=== PATIENT | male | born 1960 | race Caucasian/White ===

== ENCOUNTER 2016-10-17 18:49 | Emergency (ER) | payer OTHER ==
[2016-10-17 18:56] VITALS: BP 176/92; PULSE 96; RESP 20; TEMP 98
--- NOTE | 2016-10-17 19:05 | ED ---
General Adult HPI - General Chief complaint: Dental/Oral Stated complaint: Tooth pain/infection Time Seen by Provider: 10/17/16 19:00 Source: patient, RN notes reviewed Mode of arrival: ambulatory Limitations: no limitations - History of Present Illness Initial comments: this is a 56-year-old male presents to the emergency department complaining of tooth pain in the premolar on the bottom left. Patient states he was treated by a dentist with some antibodies but he ran out of them a few days ago and now the pain is started to come back. Patient states he wants to be infection free because he is supposed to have most of his teeth pulled so he can get some dentures. Patient also complains of some nausea as well per patient denies any fever or chills patient denies any area of swelling. Patient denies any swelling outside of his face. Patient denies any difficulty breathing or shortness of breath. Patient denies any other symptoms at this time. - Related Data Home Medications Medication Instructions Recorded Confirmed Multivitamin [Men's Multi-Vitamin] 1 tab PO DAILY 10/30/15 02/02/16 Albuterol Inhaler [Ventolin Hfa 1 - 2 puff INHALATION RT-Q6H PRN 02/02/16 Inhaler] Budesonide-Formot 160-4.5 Mcg 2 puff INHALATION RT-BID 02/02/16 02/02/16 [Symbicort 160-4.5 Mcg Inhaler] Tiotropium 18 Mcg/Puff [Spiriva] 1 cap INHALATION RT-DAILY 02/02/16 02/02/16 Previous Rx's Medication Instructions Recorded Ferrous Sulfate [Feosol] 325 mg PO DAILY #30 tab 02/02/16 HYDROcodone/APAP 5-325MG [[place] 1 tab PO Q6HR PRN #20 tab 02/02/16 5-325] Pantoprazole Sodium [Protonix] 40 mg PO AC-BRKFST #30 tablet. 02/02/16 Clindamycin HCl 300 mg PO Q6H 10 Days 10/17/16 Prochlorperazine [Compazine] 10 mg PO Q8H #10 tab 10/17/16 Allergies Allergy/AdvReac Type Severity Reaction Status Date / Time Penicillins Allergy Unknown Verified 10/17/16 18:56 Childhood codeine AdvReac Nausea & Verified 10/17/16 18:56 Vomiting Review of Systems ROS Statement: Those systems with pertinent positive or pertinent negative responses have been documented in the HPI. ROS Other: All systems not noted in ROS Statement are negative. Past Medical History Past Medical History: COPD, GI Bleed, Seizure Disorder Additional Past Medical History / Comment(s): migraines, last seizure - 15 yrs ago,anemia with bleeding gastric ulcer in 10/2015 and had a blood transfusion History of Any Multi-Drug Resistant Organisms: None Reported Past Surgical History: Cholecystectomy Additional Past Surgical History / Comment(s): amputation right thumb, skin graft right hand, left testicle removed. Past Anesthesia/Blood Transfusion Reactions: No Reported Reaction Additional Past Anesthesia/Blood Transfusion Reaction / Comment(s): pt has recieved blood transfusion - no reaction Past Psychological History: No Psychological Hx Reported Smoking Status: Current every day smoker Past Alcohol Use History: None Reported Past Drug Use History: None Reported - Past Family History Mother History Unknown: Yes Family Medical History: Myocardial Infarction ([place]) Father History Unknown: Yes Family Medical History: Myocardial Infarction ([place]) General Exam - General Exam Comments Initial Comments: GENERAL Patient is well-developed and well-nourished. Patient is in mild distress. EYES Patient's pupils are equal and round. Extraocular motion is intact SKIN Unremarkable NEURO The patient is alert and oriented 3 PYSCH Patient has normal interpersonal interactions. Mouth Patient has severe dental caries in the premolar on the bottom left is very sensitive to touch but there is no swelling or fluctuant area that an I&D to be performed on. Limitations: no limitations Course Vital Signs 10/17/16 18:54 Temperature 98.0 F Pulse Rate 96 Respiratory 20 Rate Blood Pressure 176/92 O2 Sat by Pulse 99 Oximetry Disposition Clinical Impression: Dental infection Disposition: HOME SELF-CARE Condition: Good Instructions: Dental Caries (ED), Toothache (ED) Prescriptions: Clindamycin HCl 300 mg PO Q6H 10 Days Prochlorperazine [Compazine] 10 mg PO Q8H #10 tab Time of Disposition: 19:03
== END 2016-10-17 19:10 | disposition home or self-care (01) ==
LOC: EC 18:49
DX: K04.7 Periapical abscess without sinus (principal); K02.9 Dental caries, unspecified; J44.9 Chronic obstructive pulmonary disease, unspecified; F17.200 Nicotine dependence, unspecified, uncomplicated; Z79.51 Long term (current) use of inhaled steroids; Z79.899 Other long term (current) drug therapy; Z88.0 Allergy status to penicillin; Z87.11 Personal history of peptic ulcer disease
CPT/HCPCS: 99282

== ENCOUNTER 2016-12-13 00:07 | Emergency (ER) | payer OTHER ==
[2016-12-13] MEDS ORDERED: KETOROLAC 60 MG/2 ML VIAL IM STA (01:22)
[2016-12-13] MEDS ORDERED: DIAZEPAM 5 MG TAB PO STA (01:22)
--- NOTE | 2016-12-13 01:25 | ED ---
General Adult HPI - General Chief complaint: Headache Stated complaint: Neck Pain Time Seen by Provider: 12/13/16 01:15 Source: patient, RN notes reviewed Mode of arrival: ambulatory Limitations: no limitations - History of Present Illness Initial comments: Patient 56-year-old male who presents emergency room today with a chief complaint of increased neck pain over the last week. He does admit to feeling a "knot" in the middle of his neck and upper back. States worse certain movements of if he rotates his head to the left of the right. Patient does admit that he's been babysitting his granddaughter who is 3 months old. He states he noticed that when he went to pick her up a week ago to sit on his lap. Patient denies any other injury or trauma. He states he's been trying ibuprofen and Aleve with little relief of symptoms. He denies any other complaints or symptoms at this time. - Related Data Previous Rx's Medication Instructions Recorded Cyclobenzaprine [Flexeril] 10 mg PO TID #20 tab 12/13/16 Ibuprofen [Motrin] 800 mg PO Q6HR PRN #30 tab 12/13/16 Allergies Allergy/AdvReac Type Severity Reaction Status Date / Time Penicillins Allergy Unknown Verified 12/13/16 00:17 Childhood codeine AdvReac Nausea & Verified 12/13/16 00:17 Vomiting Review of Systems ROS Statement: Those systems with pertinent positive or pertinent negative responses have been documented in the HPI. ROS Other: All systems not noted in ROS Statement are negative. Past Medical History Past Medical History: COPD, GI Bleed, Seizure Disorder Additional Past Medical History / Comment(s): migraines, last seizure - 15 yrs ago,anemia with bleeding gastric ulcer in 10/2015 and had a blood transfusion History of Any Multi-Drug Resistant Organisms: None Reported Past Surgical History: Cholecystectomy Additional Past Surgical History / Comment(s): amputation right thumb, skin graft right hand, left testicle removed. Past Anesthesia/Blood Transfusion Reactions: No Reported Reaction Additional Past Anesthesia/Blood Transfusion Reaction / Comment(s): pt has recieved blood transfusion - no reaction Past Psychological History: No Psychological Hx Reported Smoking Status: Current every day smoker Past Alcohol Use History: None Reported Past Drug Use History: None Reported - Past Family History Mother History Unknown: Yes Family Medical History: Myocardial Infarction ([place]) Father History Unknown: Yes Family Medical History: Myocardial Infarction ([place]) General Exam - General Exam Comments Initial Comments: General: The patient is awake and alert, in no distress, and does not appear acutely ill. Eye: Pupils are equal, round and reactive to light, extra-ocular movements are intact. No nystagmus. There is normal conjunctiva bilaterally. No signs of icterus. Ears, nose, mouth and throat: There are moist mucous membranes and no oral lesions. Neck: The neck is supple, there is no tenderness or JVD. Cardiovascular: There is a regular rate and rhythm. No murmur, rub or gallop is appreciated. Respiratory: Lungs are clear to auscultation, respirations are non-labored, breath sounds are equal. No wheezes, stridor, rales, or rhonchi. Musculoskeletal: Shows good range of motion both the left and right of the cervical spine. Has normal appearance of the cervical spine. Has mild tenderness. Both the left and right side of the paravertebral cervical spine. Mild tenderness to the upper thoracic. No step-offs forms appreciated. Strength 5/5. Sensation intact. Pulses equal bilaterally 2+. Neurological: A&O x 3. CN II-XII intact, There are no obvious motor or sensory deficits. Coordination appears grossly intact. Speech is normal. Skin: Skin is warm and dry and no rashes or lesions are noted. Psychiatric: Cooperative, appropriate mood & affect, normal judgment. Limitations: no limitations Course Vital Signs 12/13/16 12/13/16 00:15 02:15 Temperature 98.3 F 98.4 F Pulse Rate 85 Respiratory 20 16 Rate Blood Pressure 162/101 146/95 O2 Sat by Pulse 96 Oximetry Medical Decision Making - Medical Decision Making Patient reexamined at this time shows no signs of distress. He states he is feeling better after medications given here in the emergency room. Patient was given Toradol along with Valium by mouth 10 mg. Patient will be discharged home continuing muscle relaxer and anti-inflammatories advised to be aware that muscle extremely drowsy. Advised return if any symptoms increase worsen. Advised follow-up the family doctor over the next 2 days. Disposition Clinical Impression: Muscle strain Disposition: HOME SELF-CARE Condition: Good Instructions: Muscle Strain (ED) Additional Instructions: Please use medication as discussed. Please follow-up with family doctor in the next 2 days of symptoms have not improved. Please return to emergency room if the symptoms increase or worsen or for any other concerns. Prescriptions: Cyclobenzaprine [Flexeril] 10 mg PO TID #20 tab Ibuprofen [Motrin] 800 mg PO Q6HR PRN #30 tab PRN Reason: Pain Referrals: None,Stated [Primary Care Provider] - 1-2 days Mikey Briceño MD [STAFF PHYSICIAN] - 1-2 days Time of Disposition: 02:18
[2016-12-13 02:16] VITALS: BP 146/95; PULSE 85; RESP 16; TEMP 98.4
== END 2016-12-13 02:29 | disposition home or self-care (01) ==
LOC: EC 00:07
DX: S16.1XXA Strain of muscle, fascia and tendon at neck level, initial encounter (principal); R51 Headache; Z88.0 Allergy status to penicillin; Z88.5 Allergy status to narcotic agent; X58.XXXA Exposure to other specified factors, initial encounter; Y93.89 Activity, other specified
CPT/HCPCS: 99283; 96372; J1885

== ENCOUNTER 2016-12-27 22:55 | Observation (INO) | payer OTHER ==
[2016-12-28 00:30] LABS: Basophils # (A) 0.1 k/uL (0-0.2); Basophils % (A) 1 %; CH 27.6; CHCM 32.7; Eosinophils # (A) 0.3 k/uL (0-0.7); Eosinophils % (A) 3 %; HCT 38.9 % (39.0-53.0); HDW 3.11; HGB 12.9 gm/dL (13.0-17.5); Luc # (Auto) 0.12; Luc % (Auto) 1; Lymphocytes # (A) 1.4 k/uL (1.0-4.8); Lymphocytes % (A) 15 %; MCH 28.2 pg (25.0-35.0); MCHC 33.3 g/dL (31.0-37.0); MCV 84.9 fL (80.0-100.0); Mean Platelet Volume 6.6; Monocytes # (A) 0.5 k/uL (0-1.0); Monocytes % (A) 6 %; Neutrophils % (A) 74 %; RBC 4.59 m/uL (4.30-5.90); RDW 14.7 % (11.5-15.5); WBC 9.4 k/uL (3.8-10.6)
[2016-12-28 00:39] LABS: INR 1.1 (<1.1); Partial Thromboplastin Time 26.7 sec (22.0-30.0); Prothrombin Time 11.3 sec (9.0-12.0)
[2016-12-28 00:45] LABS: ALT 27 U/L (21-72); AST 22 U/L (17-59); Alkaline Phosphatase 67 U/L (38-126); Anion Gap 10 mmol/L; Blood Urea Nitrogen 14 mg/dL (9-20); Calcium 9.9 mg/dL (8.4-10.2); Carbon Dioxide 30 mmol/L (22-30); Chloride 102 mmol/L (98-107); Glucose 112 mg/dL (74-99); Non-African American GFR(MDRD) >60 (>60 ml/min/1.73 sqM); Potassium 3.5 mmol/L (3.5-5.1); Sodium 142 mmol/L (137-145); Total Bilirubin 0.5 mg/dL (0.2-1.3); Total Protein 6.8 g/dL (6.3-8.2)
[2016-12-28 00:55] LABS: Creatine Kinase 142 U/L (55-170)
--- NOTE | 2016-12-28 00:55 | XR ---
EXAM: XR Chest, 1 View CLINICAL HISTORY: Reason: pain TECHNIQUE: Frontal view of the chest. COMPARISON: 02/02/2016 FINDINGS: Lungs: Stable bilateral pulmonary hyperinflation. No focal consolidation. Pleural space: Unremarkable. No pneumothorax. Heart: Stable cardiomediastinal silhouette. Mediastinum: See above. Bones/joints: No acute osseous abnormality. IMPRESSION: No acute cardiopulmonary process.
--- NOTE | 2016-12-28 01:01 | ED ---
GI Bleed HPI - General Chief complaint: GI Bleed Stated complaint: Vomiting Time Seen by Provider: 12/28/16 00:04 Source: patient Mode of arrival: ambulatory Limitations: no limitations - History of Present Illness Initial comments: this patient is a 56-year-old man with history of "esophageal ulcers" who presents to be evaluated after he had been vomiting some bloody emesis. Patient states that about 10 this morning he had vomited and there was a small amount of some bright red blood. He has had a number of additional episodes a low the blood had darkened over the course of the afternoon. He thinks that he had about 6 episodes. He comes in to be evaluated because this evening he developed some right flank pain and he states that the last time he had this it was due to an ulcer. The patient has not noted any change in bowel movements, including no dark tarry or bloody bowel movements. He is not having any symptoms of anemia, no lightheadedness, palpitations or syncope, no chest pain, diaphoresis, or dyspnea. The patient denies any alcohol use. MD complaint: blood streaked emesis Onset/Timin -: hour(s) Quality: sharp Consistency: constant Improves with: none Worsens with: none Context: history of GI bleed Associated Symptoms: abdominal pain Treatments Prior to Arrival: none - Related Data Home Medications Medication Instructions Recorded Confirmed No Known Home Medications [No 12/27/16 12/27/16 Known Home Medications] Allergies Allergy/AdvReac Type Severity Reaction Status Date / Time Penicillins Allergy Unknown Verified 12/27/16 23:34 Childhood codeine AdvReac Nausea & Verified 12/27/16 23:34 Vomiting Review of Systems ROS Statement: Those systems with pertinent positive or pertinent negative responses have been documented in the HPI. ROS Other: All systems not noted in ROS Statement are negative. Constitutional: Denies: fever, chills Respiratory: Denies: cough, dyspnea Cardiovascular: Denies: chest pain, palpitations Gastrointestinal: Reports: as per HPI, abdominal pain, nausea, vomiting, hematemesis. Denies: diarrhea, constipation, melena, hematochezia Genitourinary: Denies: dysuria, hematuria Musculoskeletal: Denies: back pain Skin: Denies: rash Neurological: Denies: headache, weakness, numbness Past Medical History Past Medical History: COPD, GI Bleed, Seizure Disorder Additional Past Medical History / Comment(s): migraines, last seizure - 15 yrs ago,anemia with bleeding gastric ulcer in 10/2015 and had a blood transfusion History of Any Multi-Drug Resistant Organisms: None Reported Past Surgical History: Cholecystectomy Additional Past Surgical History / Comment(s): amputation right thumb, skin graft right hand, left testicle removed. Past Anesthesia/Blood Transfusion Reactions: No Reported Reaction Additional Past Anesthesia/Blood Transfusion Reaction / Comment(s): pt has recieved blood transfusion - no reaction Past Psychological History: No Psychological Hx Reported Smoking Status: Current every day smoker Past Alcohol Use History: None Reported Past Drug Use History: None Reported - Past Family History Mother History Unknown: Yes Family Medical History: Myocardial Infarction ([place]) Father History Unknown: Yes Family Medical History: Myocardial Infarction ([place]) General Exam Limitations: no limitations General appearance: alert, in no apparent distress Head exam: Present: atraumatic, normocephalic Eye exam: Present: normal appearance. Absent: scleral icterus, conjunctival injection Neck exam: Present: normal inspection, full ROM Respiratory exam: Present: normal lung sounds bilaterally. Absent: respiratory distress, wheezes, rales, rhonchi, stridor Cardiovascular Exam: Present: regular rate, normal rhythm, normal heart sounds. Absent: systolic murmur, diastolic murmur, rubs, gallop GI/Abdominal exam: Present: soft, normal bowel sounds. Absent: distended, tenderness, guarding, rebound, rigid, mass, bruit, pulsatile mass, hernia Extremities exam: Present: normal inspection, normal capillary refill. Absent: pedal edema, calf tenderness Back exam: Present: normal inspection. Absent: CVA tenderness (R), CVA tenderness (L) Neurological exam: Present: alert Skin exam: Present: warm, dry, intact, normal color. Absent: rash Course Vital Signs 12/27/16 12/28/16 23:30 02:29 Temperature 97.8 F Pulse Rate 89 74 Respiratory 18 16 Rate Blood Pressure 155/86 161/89 O2 Sat by Pulse 100 98 Oximetry Medical Decision Making - Lab Data Result diagrams: 12/28/16 00:20 12/28/16 00:20 Lab Results 12/28/16 12/28/16 12/28/16 Range/Units 00:20 00:20 00:20 WBC 9.4 (3.8-10.6) k/uL RBC 4.59 (4.30-5.90) m/uL Hgb 12.9 L (13.0-17.5) gm/dL Hct 38.9 L (39.0-53.0) % MCV 84.9 (80.0-100.0) fL MCH 28.2 (25.0-35.0) pg MCHC 33.3 (31.0-37.0) g/dL RDW 14.7 (11.5-15.5) % Plt Count 314 (150-450) k/uL Neutrophils % 74 % Lymphocytes % 15 % Monocytes % 6 % Eosinophils % 3 % Basophils % 1 % Neutrophils # 7.0 (1.3-7.7) k/uL Lymphocytes # 1.4 (1.0-4.8) k/uL Monocytes # 0.5 (0-1.0) k/uL Eosinophils # 0.3 (0-0.7) k/uL Basophils # 0.1 (0-0.2) k/uL PT (9.0-12.0) sec INR (<1.1) APTT (22.0-30.0) sec Sodium 142 (137-145) mmol/L Potassium 3.5 (3.5-5.1) mmol/L Chloride 102 (98-107) mmol/L Carbon Dioxide 30 (22-30) mmol/L Anion Gap 10 mmol/L BUN 14 (9-20) mg/dL Creatinine 0.90 (0.66-1.25) mg/dL Est GFR (MDRD) Af Amer >60 (>60 ml/min/1.73 sqM) Est GFR (MDRD) Non-Af >60 (>60 ml/min/1.73 sqM) Glucose 112 H (74-99) mg/dL Plasma Lactic Acid Shad (0.7-2.0) mmol/L Calcium 9.9 (8.4-10.2) mg/dL Total Bilirubin 0.5 (0.2-1.3) mg/dL AST 22 (17-59) U/L ALT 27 (21-72) U/L Alkaline Phosphatase 67 (38-126) U/L Total Creatine Kinase 142 (55-170) U/L CK-MB (CK-2) 0.6 (0.0-2.4) ng/mL CK-MB (CK-2) Rel Index 0.4 Troponin I <0.012 (0.000-0.034) ng/mL Total Protein 6.8 (6.3-8.2) g/dL Albumin 4.0 (3.5-5.0) g/dL 12/28/16 12/28/16 Range/Units 00:20 00:20 WBC (3.8-10.6) k/uL RBC (4.30-5.90) m/uL Hgb (13.0-17.5) gm/dL Hct (39.0-53.0) % MCV (80.0-100.0) fL MCH (25.0-35.0) pg MCHC (31.0-37.0) g/dL RDW (11.5-15.5) % Plt Count (150-450) k/uL Neutrophils % % Lymphocytes % % Monocytes % % Eosinophils % % Basophils % % Neutrophils # (1.3-7.7) k/uL Lymphocytes # (1.0-4.8) k/uL Monocytes # (0-1.0) k/uL Eosinophils # (0-0.7) k/uL Basophils # (0-0.2) k/uL PT 11.3 (9.0-12.0) sec INR 1.1 (<1.1) APTT 26.7 (22.0-30.0) sec Sodium (137-145) mmol/L Potassium (3.5-5.1) mmol/L Chloride (98-107) mmol/L Carbon Dioxide (22-30) mmol/L Anion Gap mmol/L BUN (9-20) mg/dL Creatinine (0.66-1.25) mg/dL Est GFR (MDRD) Af Amer (>60 ml/min/1.73 sqM) Est GFR (MDRD) Non-Af (>60 ml/min/1.73 sqM) Glucose (74-99) mg/dL Plasma Lactic Acid Shad 0.9 (0.7-2.0) mmol/L Calcium (8.4-10.2) mg/dL Total Bilirubin (0.2-1.3) mg/dL AST (17-59) U/L ALT (21-72) U/L Alkaline Phosphatase (38-126) U/L Total Creatine Kinase (55-170) U/L CK-MB (CK-2) (0.0-2.4) ng/mL CK-MB (CK-2) Rel Index Troponin I (0.000-0.034) ng/mL Total Protein (6.3-8.2) g/dL Albumin (3.5-5.0) g/dL Disposition Clinical Impression: GI bleed Disposition: ADMITTED IP TO THIS [facility] Condition: Good Referrals: None,Stated [Primary Care Provider] - 1-2 days
[2016-12-28 01:08] LABS: Creatine Kinase MB 0.6 ng/mL (0.0-2.4); Troponin I <0.012 ng/mL (0.000-0.034)
[2016-12-28] MEDS ORDERED: NALOXONE 0.4 MG/ML 1 ML VIAL IV PRN (03:34)
[2016-12-28] MEDS ORDERED: DOCUSATE 100 MG CAP PO PRN (03:34)
[2016-12-28] MEDS: MORPHINE SULFATE 4 MG/ML SYRINGE IV PRN ×4 (03:44→14:11)
[2016-12-28 05:02] VITALS: RESP 16
[2016-12-28] MEDS: SODIUM CHLORIDE 0.9% 1,000 ML IV SCH ×2 (05:44→18:16)
--- NOTE | 2016-12-28 07:53 | P.CONS ---
History of Present Illness - Reason for Consult Consult date: 12/28/16 Hematemesis Requesting physician: Gabriela Snyder - History of Present Illness 56-year-old gentleman with a history of moderate size hiatal hernia, peptic ulcer disease, diverticulosis, cholecystectomy, COPD, seizure disorder, migraines, and nicotine cigarette dependency. Patient presents with acute hematemesis that started yesterday morning with small amount of bright red blood. Additional emesis later in the afternoon more darker in color. He vomited approximately 6 times. Patient underwent oral surgery with total teeth extraction and has been taking Motrin 800 mg twice daily for the last 7-10 days . Denies fever, chills. Reports some mild midepigastric reflux-like discomfort. Denies gross hematochezia or melena. No usage of aspirin. No history of alcohol abuse. Patient underwent EGD colonoscopy October 2015 for profound anemia with findings of moderate size hiatal hernia. Gastritis and duodenitis with 2 benign- appearing gastric body ulcers approximately 2 cm close to the cardia along the lesser curvature not actively bleeding at the time of exam. Sigmoid diverticulosis without strictures polyps colon cancer or bleeding. Admission hemoglobin 12.9. MCV 84. Platelets 314. White count 9.4. INR 1.1. BUN 14. Creatinine 0.9. Review of Systems Constitutional: Denies fever, chills, sweats, weight gain, or loss. HEENT: History of migraines, denies blurred vision or loss, earaches, drainage, tinnitus, oral mucosal lesions, dysphagia, or odynophagia. Cardiac: Negative for chest pain, arrhythmias, or palpitation. Respiratory: COPD. Cigarette nicotine dependency. Negative for shortness of breath, hemoptysis, cough, or sputum production. Gastrointestinal: See HPI for pertinent findings. Genitourinary: History of left orchiectomy. Negative for hematuria, urgency, frequency, polyuria, dysuria, or penile discharge. Musculoskeletal: Negative for muscle aches, swelling, arthritis, and arthralgias. Neurologic: History of seizure disorder. Negative for stroke or TIA. Endocrine: Negative for thyroid problems. Skin: Negative for rash or itching. Psychiatric: Negative history for depression and anxiety All systems: negative (See HPI) Past Medical History Past Medical History: COPD, GI Bleed, Seizure Disorder Additional Past Medical History / Comment(s): migraines, last seizure - 15 yrs ago,anemia with bleeding gastric ulcer in 10/2015 and had a blood transfusion History of Any Multi-Drug Resistant Organisms: None Reported Past Surgical History: Cholecystectomy Additional Past Surgical History / Comment(s): amputation right thumb, skin graft right hand, left testicle removed. Past Anesthesia/Blood Transfusion Reactions: No Reported Reaction Additional Past Anesthesia/Blood Transfusion Reaction / Comm: pt has recieved blood transfusion - no reaction Past Psychological History: No Psychological Hx Reported Smoking Status: Current every day smoker Past Alcohol Use History: None Reported Past Drug Use History: None Reported - Past Family History Mother History Unknown: Yes Family Medical History: Myocardial Infarction ([place]) Father History Unknown: Yes Family Medical History: Myocardial Infarction ([place]) Medications and Allergies Home Medications Medication Instructions Recorded Confirmed Type Ibuprofen [Motrin] 600 mg PO Q6H PRN 12/28/16 12/28/16 History Allergies Allergy/AdvReac Type Severity Reaction Status Date / Time Penicillins Allergy Unknown Verified 12/28/16 07:47 Childhood codeine AdvReac Nausea & Verified 12/28/16 07:47 Vomiting Physical Exam Vitals: Vital Signs Temp Pulse Pulse Pulse Resp BP BP 12/28/16 07:00 97.9 F 72 16 123/56 12/28/16 04:47 97.4 F L 73 16 152/90 12/28/16 04:03 98.1 F 75 18 154/84 12/28/16 02:29 74 16 161/89 12/27/16 23:30 97.8 F 89 18 155/86 Pulse Ox 12/28/16 07:00 96 12/28/16 04:47 96 12/28/16 04:03 95 12/28/16 02:29 98 12/27/16 23:30 100 Intake and Output 12/27/16 12/28/16 12/28/16 22:59 06:59 14:59 Intake Total 112.5 Balance 112.5 Intake: Intake, IV Titration 112.5 Amount Sodium Chloride 0.9% 1, 112.5 000 ml @ 75 mls/hr IV . [id number] [facility] Rx#:[id number] Other: Voiding Method Toilet # Voids 1 Weight 80.739 kg General appearance: The patient is alert, oriented, in no acute distress. HET: Head is normocephalic and atraumatic. Pupils are equal and reactive. Oropharynx is clear without lesions. Neck: Supple without lymphadenopathy. Trachea midline. Heart: S1 S2. Regular rate and rhythm. Lungs: No crackles or wheezes are heard. Abdomen: Soft, nontender, nondistended with bowel sounds. No peritoneal signs. No palpable organomegaly or masses. Extremities: Normal skin color and turgor. No cyanosis, rash, ulceration, clubbing, or edema. Radial and pedal pulses are 2/4 bilaterally. Neurological: No focal deficits. Strength and sensation are grossly intact. Results CBC & Chem 7: 12/28/16 00:20 12/28/16 00:20 Labs: Abnormal Lab Results - Last 24 Hours (Table) 12/28/16 12/28/16 Range/Units 00: 00:20 Hgb 12.9 L (13.0-17.5) gm/dL Hct 38.9 L (39.0-53.0) % Glucose 112 H (74-99) mg/dL Assessment and Plan (1) Hematemesis Narrative/Plan: Possible NSAID-induced peptic ulcer disease. EGD October 2015 2 nonbleeding ulcers approximately 2 cm gastric body along the lesser curvature near the cardia; H. pylori negative. Status: Acute (2) History of peptic ulcer disease Status: Acute (3) GI bleed Status: Acute Plan: 1. EGD evaluation. 2. IV Protonix 40 mg twice daily. 3. No aspirin or NSAIDs. 4. Monitor CBC closely. The habitat management coordinator has discussed the risks, benefits and alternative therapies for the above-mentioned procedure and for both sedation/analgesia as well as necessary blood product administration, if indicated, as they pertain to this patient. The patient has indicated understanding and acceptance of the risks and procedures discussed. Thank you for this kind referral and the opportunity to participate in the care of your patient. This consultation was discussed with Dr. Schmitz. The impression and plan of care have been directed as dictated.
[2016-12-28] MEDS ORDERED: PANTOPRAZOLE 40 MG/10 ML VIAL IV SCH ×2 (09:00)
[2016-12-28] MEDS ORDERED: ACETAMINOPHEN TAB 325 MG TAB PO PRN (12:47)
--- NOTE | 2016-12-28 13:24 | HP ---
DATE OF ADMISSION: HISTORY AND PHYSICAL AND DISCHARGE SUMMARY The patient is a 56-year-old with history of hiatal hernia and peptic ulcer disease and upper GI bleeds in the past. Came in with complaints of hematemesis and patient's hematemesis improved today. Patient had multiple such episodes yesterday. He vomited about 6 times and a few of those episodes had hematemesis. The patient had a recent tooth extraction after which patient was started on 800 mg twice a day of Motrin and has been using for the last 7 to 10 days. Patient underwent EGD and in the past which showed some hiatal hernia. The patient is undergoing EGD. If patient does not have any actively bleeding ulcer, patient will be started on Prilosec for 14 days to a month, for 2 to 4 weeks and patient will be discharged. Patient will be requested to avoid Motrin. Patient will not need any pain medications. Patient said he will not need any pain medications. REVIEW OF SYSTEMS: CONSTITUTIONAL: No fever, no malaise, no fatigue. HEENT: No recent visual problems or hearing problems. Denied any sore throat. CARDIOVASCULAR: No chest pain, orthopnea, PND, no palpitations, no syncope. PULMONARY: No shortness of breath, no cough, no hemoptysis. GASTROINTESTINAL: As described in HPI. NEUROLOGICAL: No headaches, no weakness, no numbness. HEMATOLOGICAL: Denies any bleeding or petechiae. GENITOURINARY: Denies any burning micturition, frequency, or urgency. MUSCULOSKELETAL/RHEUMATOLOGICAL: Denies any joint pain, swelling, or any muscle pain. ENDOCRINE: Denies any polyuria or polydipsia. The rest of the 14 point review of systems is negative. Past medical history is significant for GI bleed in the past, COPD, seizure disorder, amputation of the right thumb. SOCIAL HISTORY: The patient does smoke a pack per day. Denied any alcohol abuse or any drug abuse. FAMILY HISTORY: Mother had myocardial infarction. Father had myocardial infarction. F HOME MEDICATIONS: Ibuprofen 600 mg p.o. q.6 hourly. ALLERGIES: Allergic to PENICILLIN and CODEINE. PHYSICAL EXAMINATION: Temperature 97.9, pulse of 72, respiratory rate of 16, blood pressure 123/56, saturating at 96% on room air. GENERAL: The patient is alert and oriented x3, not in any acute distress. Well developed, well nourished. HEENT: Pupils are round and equally reacting to light. EOMI. No scleral icterus. No conjunctival pallor. Normocephalic, atraumatic. No pharyngeal erythema. No thyromegaly. CARDIOVASCULAR: S1 and S2 present. No murmurs, rubs, or gallops. PULMONARY: Chest is clear to auscultation, no wheezing or crackles. ABDOMEN: Soft, nontender, nondistended, normoactive bowel sounds. No palpable organomegaly. MUSCULOSKELETAL: No joint swelling or deformity. EXTREMITIES: No cyanosis, clubbing, or pedal edema. NEUROLOGICAL: Gross neurological examination did not reveal any focal deficits. SKIN: No rashes. LABORATORY DATA: CBC, CMP are abnormal for mildly low hemoglobin of 12.9, RDW is only 14.7, which is high normal. Chest x-ray was reviewed. ASSESSMENT AND PLAN: 1. Upper gastrointestinal bleed and hematemesis secondary to gastritis or peptic ulcer disease. Management as mentioned above. After the upper gastrointestinal endoscopy, the patient's diet will be advanced and if he is able to tolerate without nausea or vomiting, patient will be discharged. Patient will follow with gastroenterology as an outpatient and primary care physician as an outpatient. 2. Chronic obstructive pulmonary disease without any acute exacerbation. Patient's further management as an outpatient. 3. History of seizure disorder, not on any antiseizure medications. As mentioned above, further management as an outpatient.
[2016-12-28] MEDS ORDERED: PROPOFOL 10 MG/ML 20 ML VIAL IV ONE (16:21)
[2016-12-28] MEDS ORDERED: IV FLUID CONTINUATION 1,000 ML IV ONE (16:21)
--- NOTE | 2016-12-28 17:00 | P.PCN ---
Date of Procedure: 12/28/16 Preoperative Diagnosis: Postoperative Diagnosis: Procedure(s) Performed: Procedure: Esophagogastroduodenoscopy and biopsy. Preoperative diagnosis: Upper GI bleeding. Postoperative diagnosis: 1. Moderately sized hiatal hernia and gastritis with no active bleeding at the time of this exam. 2. Biopsies obtained from the antrum. Preparation and sedation: Was provided by anesthesia. Brief clinical history: The patient is a 56-year-old gentleman with a history of moderate size hiatal hernia, peptic ulcer disease, diverticulosis, cholecystectomy, COPD, seizure disorder, migraines, and nicotine cigarette dependency. He presented with acute hematemesis that started yesterday morning with small amount of bright red blood. Additional emesis later in the afternoon more darker in color. He vomited approximately 6 times. Patient underwent oral surgery with total teeth extraction and has been taking Motrin 800 mg twice daily for the last 7-10 days. Denies fever, chills. Reports some mild midepigastric reflux-like discomfort. Denies gross hematochezia or melena. No usage of aspirin. No history of alcohol abuse. He underwent EGD and colonoscopy October 2015 for profound anemia with findings of moderate size hiatal hernia. Gastritis and duodenitis with 2 benign-appearing gastric body ulcers approximately 2 cm close to the cardia along the lesser curvature not actively bleeding at the time of exam. Sigmoid diverticulosis without strictures polyps colon cancer or bleeding. Admission hemoglobin 12.9. MCV 84. Platelets 314. Other details as summarized in the history and physical and dictated consultation. Procedure: With the patient on his left lateral decubitus position and after informed consent and adequate sedation, I passed the Olympus-GIF 160 video upper endoscope through the cricopharyngeus down the esophagus. The esophagus appeared healthy with no obvious erosions, ulcers, strictures or Yepez's esophagus. There was no mucosal tears. There was a moderately sized hiatal hernia then the endoscope was passed into the stomach which was insufflated with air and inspected in detail including the retroflex view in the cardia. There was diffuse mottling and erythema and there were multiple linear erosions noted in the proximal stomach at the level of the diaphragmatic impression but there was no active bleeding. Pyloric channel, duodenal bulb, post bulbar area and descending duodenum appeared within normal limits. There was no active bleeding noted on this exam and all secretions were bilious in color. I obtained biopsies from the antrum then the endoscope was withdrawn. The patient tolerated the procedure well. Plan: The patient was reassured. Will await biopsy results. In the meantime he will continue PPI and allow diet as tolerated. Implants: Indications for Procedure: Operative Findings: Description of Procedure:
[2016-12-28 17:05] VITALS: BP 146/88; PULSE 74; TEMP 97.4
== END 2016-12-28 18:41 | disposition home or self-care (01) ==
LOC: EC 22:55 → 3SUR 12-28 03:34
PROVIDERS: ADMIT Internal Medicine; ATTEND Internal Medicine
DX: K29.71 Gastritis, unspecified, with bleeding (principal); K27.9 Peptic ulcer, site unspecified, unspecified as acute or chronic, without hemorrhage or perforation; K44.9 Diaphragmatic hernia without obstruction or gangrene; J44.9 Chronic obstructive pulmonary disease, unspecified; G40.909 Epilepsy, unspecified, not intractable, without status epilepticus; F17.210 Nicotine dependence, cigarettes, uncomplicated; Z88.0 Allergy status to penicillin; Z88.5 Allergy status to narcotic agent; Z90.49 Acquired absence of other specified parts of digestive tract; Z82.49 Family history of ischemic heart disease and other diseases of the circulatory system; K21.9 Gastro-esophageal reflux disease without esophagitis; Z79.899 Other long term (current) drug therapy
CPT/HCPCS: 96376; 96375; 96374; 99285; 36415; 86900; 86901; 88305; 80053; 82550; 82553; 83605; 84484; 85025; 85610; 85730; 86850; 88342; 71010; 43239; G0378; J2270; J2704; C9113

== ENCOUNTER 2017-01-10 19:46 | Observation (INO) | payer OTHER ==
[2017-01-10] MEDS ORDERED: SODIUM CHLORIDE 0.9% 500 ML IV STA (20:56)
--- NOTE | 2017-01-10 21:02 | ED ---
GI Bleed HPI - General Chief complaint: GI Bleed Stated complaint: Rectual bleeding Time Seen by Provider: 01/10/17 20:51 Source: patient, RN notes reviewed Mode of arrival: ambulatory Limitations: no limitations - History of Present Illness Initial comments: 48-year-old male presents to the emergency Department chief complaint of bright red blood per rectum. Patient states it started around 1:00 today. Patient states he's had multiple episodes. Patient denies any lightheadedness or dizziness. Patient states last colonoscopy was last year with no problems. Patient states he's never had anything like this before. Patient states that his stool is very loose and he notices bright red blood. Patient states he was concerned due to his continued bleeding states that that he should be evaluated. Patient denies any recent fever, chills, shortness of breath, chest pain, back pain, abdominal pain, nausea vomiting, numbness or tingling, dysuria or hematuria, constipation or diarrhea, headaches or visual changes, or any other current symptoms. - Related Data Previous Rx's Medication Instructions Recorded Omeprazole [PriLOSEC] 40 mg PO AC-BRKFST #14 capsule. 12/28/16 Allergies Allergy/AdvReac Type Severity Reaction Status Date / Time Penicillins Allergy Unknown Verified 01/10/17 20:57 Childhood codeine AdvReac Nausea & Verified 01/10/17 20:57 Vomiting Review of Systems ROS Statement: Those systems with pertinent positive or pertinent negative responses have been documented in the HPI. ROS Other: All systems not noted in ROS Statement are negative. Past Medical History Past Medical History: COPD, GI Bleed, Seizure Disorder Additional Past Medical History / Comment(s): migraines, last seizure - 15 yrs ago,anemia with bleeding gastric ulcer in 10/2015 and had a blood transfusion History of Any Multi-Drug Resistant Organisms: None Reported Past Surgical History: Cholecystectomy Additional Past Surgical History / Comment(s): amputation right thumb, skin graft right hand, left testicle removed. Past Anesthesia/Blood Transfusion Reactions: No Reported Reaction Additional Past Anesthesia/Blood Transfusion Reaction / Comment(s): pt has recieved blood transfusion - no reaction Past Psychological History: No Psychological Hx Reported Smoking Status: Current every day smoker Past Alcohol Use History: None Reported Past Drug Use History: None Reported - Past Family History Mother History Unknown: Yes Family Medical History: Myocardial Infarction ([place]) Father History Unknown: Yes Family Medical History: Myocardial Infarction ([place]) General Exam Limitations: no limitations General appearance: alert, in no apparent distress Head exam: Present: atraumatic, normocephalic, normal inspection Neck exam: Present: normal inspection. Absent: tenderness, meningismus, lymphadenopathy Respiratory exam: Present: normal lung sounds bilaterally. Absent: respiratory distress, wheezes, rales, rhonchi, stridor Cardiovascular Exam: Present: regular rate, normal rhythm, normal heart sounds. Absent: systolic murmur, diastolic murmur, rubs, gallop, clicks GI/Abdominal exam: Present: soft, normal bowel sounds. Absent: distended, tenderness, guarding, rebound, rigid Rectal exam: Present: normal inspection, normal rectal tone, bloody stool. Absent: hemorrhoids, mass, tenderness Neurological exam: Present: alert, oriented X3 Psychiatric exam: Present: normal affect, normal mood Skin exam: Present: warm, dry, intact, normal color. Absent: rash Course Vital Signs 01/10/17 01/10/17 20:06 21:18 Temperature 97.5 F L Pulse Rate 91 Pulse Rate [ 86 Sitting] Pulse Rate [ 84 Standing] Pulse Rate [ 78 Supine] Respiratory 18 Rate Blood Pressure 158/88 Blood Pressure 157/89 [Sitting] Blood Pressure 144/89 [Standing] Blood Pressure 158/83 [Supine] O2 Sat by Pulse 96 Oximetry Medical Decision Making - Medical Decision Making 56-year-old male presents emergency Department chief complaint of rectal bleeding.at this time patient does appear to have a positive occult blood. Patient states he's had multiple passes of bright red blood per his rectum to. Patient was seen for an upper GI bleed and the beginning of the month but no coffee was performed. This and we will admit patient for continued care and GI consult. Patient is in agreement with plan and all questions have been answered. He will be admitted. - Lab Data Result diagrams: 01/10/17 21:05 01/10/17 21:05 Lab Results 01/10/17 01/10/17 01/10/17 Range/Units 21:05 21:05 21:05 WBC 11.7 H (3.8-10.6) k/uL RBC 4.53 (4.30-5.90) m/uL Hgb 12.5 L (13.0-17.5) gm/dL Hct 38.3 L (39.0-53.0) % MCV 84.5 (80.0-100.0) fL MCH 27.6 (25.0-35.0) pg MCHC 32.6 (31.0-37.0) g/dL RDW 15.0 (11.5-15.5) % Plt Count 336 (150-450) k/uL Neutrophils % 83 % Lymphocytes % 9 % Monocytes % 4 % Eosinophils % 3 % Basophils % 0 % Neutrophils # 9.7 H (1.3-7.7) k/uL Lymphocytes # 1.1 (1.0-4.8) k/uL Monocytes # 0.4 (0-1.0) k/uL Eosinophils # 0.3 (0-0.7) k/uL Basophils # 0.1 (0-0.2) k/uL Hypochromasia Slight Poikilocytosis Slight PT (9.0-12.0) sec INR (<1.1) APTT (22.0-30.0) sec Sodium 141 (137-145) mmol/L Potassium 4.3 (3.5-5.1) mmol/L Chloride 107 (98-107) mmol/L Carbon Dioxide 25 (22-30) mmol/L Anion Gap 9 mmol/L BUN 8 L (9-20) mg/dL Creatinine 0.80 (0.66-1.25) mg/dL Est GFR (MDRD) Af Amer >60 (>60 ml/min/1.73 sqM) Est GFR (MDRD) Non-Af >60 (>60 ml/min/1.73 sqM) Glucose 130 H (74-99) mg/dL Calcium 9.2 (8.4-10.2) mg/dL Total Bilirubin 0.3 (0.2-1.3) mg/dL AST 21 (17-59) U/L ALT 28 (21-72) U/L Alkaline Phosphatase 62 (38-126) U/L Total Protein 6.2 L (6.3-8.2) g/dL Albumin 3.6 (3.5-5.0) g/dL Amylase 59 (30-110) U/L Lipase 83 (23-300) U/L Stool Occult Blood Positive (Negative) 01/10/17 Range/Units 21:05 WBC (3.8-10.6) k/uL RBC (4.30-5.90) m/uL Hgb (13.0-17.5) gm/dL Hct (39.0-53.0) % MCV (80.0-100.0) fL MCH (25.0-35.0) pg MCHC (31.0-37.0) g/dL RDW (11.5-15.5) % Plt Count (150-450) k/uL Neutrophils % % Lymphocytes % % Monocytes % % Eosinophils % % Basophils % % Neutrophils # (1.3-7.7) k/uL Lymphocytes # (1.0-4.8) k/uL Monocytes # (0-1.0) k/uL Eosinophils # (0-0.7) k/uL Basophils # (0-0.2) k/uL Hypochromasia Poikilocytosis PT 11.5 (9.0-12.0) sec INR 1.2 (<1.1) APTT 23.9 (22.0-30.0) sec Sodium (137-145) mmol/L Potassium (3.5-5.1) mmol/L Chloride (98-107) mmol/L Carbon Dioxide (22-30) mmol/L Anion Gap mmol/L BUN (9-20) mg/dL Creatinine (0.66-1.25) mg/dL Est GFR (MDRD) Af Amer (>60 ml/min/1.73 sqM) Est GFR (MDRD) Non-Af (>60 ml/min/1.73 sqM) Glucose (74-99) mg/dL Calcium (8.4-10.2) mg/dL Total Bilirubin (0.2-1.3) mg/dL AST (17-59) U/L ALT (21-72) U/L Alkaline Phosphatase (38-126) U/L Total Protein (6.3-8.2) g/dL Albumin (3.5-5.0) g/dL Amylase (30-110) U/L Lipase (23-300) U/L Stool Occult Blood (Negative) - Radiology Data Radiology results: report reviewed, image reviewed Disposition Clinical Impression: Anemia Disposition: ADMITTED IP TO THIS [facility] Condition: Stable Referrals: None,Stated [Primary Care Provider] - 1-2 days Time of Disposition: 21:53 Decision Date: 01/10/17 Decision Time: 21:53
[2017-01-10 21:21] LABS: Basophils # (A) 0.1 k/uL (0-0.2); Basophils % (A) 0 %; CH 27.2; CHCM 32.3; Eosinophils # (A) 0.3 k/uL (0-0.7); Eosinophils % (A) 3 %; HCT 38.3 % (39.0-53.0); HDW 3.41; HGB 12.5 gm/dL (13.0-17.5); Hypochromasia Slight; Luc # (Auto) 0.11; Luc % (Auto) 1; Lymphocytes # (A) 1.1 k/uL (1.0-4.8); Lymphocytes % (A) 9 %; MCH 27.6 pg (25.0-35.0); MCHC 32.6 g/dL (31.0-37.0); MCV 84.5 fL (80.0-100.0); Mean Platelet Volume 6.6; Monocytes # (A) 0.4 k/uL (0-1.0); Monocytes % (A) 4 %; Neutrophils # (A) 9.7 k/uL (1.3-7.7); Neutrophils % (A) 83 %; Poikilocytosis Slight; RBC 4.53 m/uL (4.30-5.90); WBC 11.7 k/uL (3.8-10.6); WBC (Perox) 12.56
--- NOTE | 2017-01-10 21:24 | XR ---
EXAMINATION TYPE: XR abdomen 2V DATE OF EXAM: 01/10/2017 COMPARISON: NONE HISTORY: Pain TECHNIQUE: Single supine and upright KUB image of the abdomen is obtained FINDINGS: Small bowel demonstrates no evidence for dilatation or air fluid levels. Gas and fecal material is seen in non-distended colon. No convincing evidence for pneumoperitoneum. No unusual calcifications. The lung bases are clear. The osseous structures are intact. IMPRESSION: 1. Overall nonobstructive bowel gas pattern.
[2017-01-10 21:32] LABS: INR 1.2 (<1.1); Partial Thromboplastin Time 23.9 sec (22.0-30.0); Prothrombin Time 11.5 sec (9.0-12.0)
[2017-01-10 21:42] LABS: Amylase 59 U/L (30-110); Chloride 107 mmol/L (98-107); Glucose 130 mg/dL (74-99); Total Protein 6.2 g/dL (6.3-8.2)
[2017-01-10 21:43] LABS: ALT 28 U/L (21-72); AST 21 U/L (17-59); Alkaline Phosphatase 62 U/L (38-126); Anion Gap 9 mmol/L; Blood Urea Nitrogen 8 mg/dL (9-20); Calcium 9.2 mg/dL (8.4-10.2); Carbon Dioxide 25 mmol/L (22-30); Non-African American GFR(MDRD) >60 (>60 ml/min/1.73 sqM); Potassium 4.3 mmol/L (3.5-5.1); Sodium 141 mmol/L (137-145); Total Bilirubin 0.3 mg/dL (0.2-1.3)
[2017-01-10] MEDS ORDERED: ONDANSETRON 4 MG/2 ML VIAL IVP PRN (21:53)
[2017-01-10] MEDS ORDERED: NALOXONE 0.4 MG/ML 1 ML VIAL IV PRN (21:53)
[2017-01-11] MEDS: ACETAMINOPHEN TAB 325 MG TAB PO PRN ×2 (01:12→22:24)
[2017-01-11] MEDS: SODIUM CHLORIDE 0.9% 1,000 ML IV SCH ×3 (01:13→17:49)
[2017-01-11 04:30] LABS: Appearance,Urine Clear (Clear); Bilirubin,Urine Negative (Negative); Glucose,Urine (UA) Negative (Negative); Ketones,Urine Negative (Negative); Leukocyte Esterase,Urine Negative (Negative); Nitrite,Urine Negative (Negative); PH, Urine 6.5 (5.0-8.0); Protein,Urine Negative (Negative); Specific Gravity,Urine 1.008 (1.001-1.035); UA Billing (MACRO vs. MICRO) CHEM; Urobilinogen,Urine <2.0 mg/dL (<2.0)
[2017-01-11 08:57] LABS: Basophils # (A) 0.1 k/uL (0-0.2); Basophils % (A) 1 %; CH 27.1; CHCM 31.7; Eosinophils # (A) 0.3 k/uL (0-0.7); Eosinophils % (A) 4 %; HCT 36.9 % (39.0-53.0); HDW 3.35; HGB 11.8 gm/dL (13.0-17.5); Hypochromasia Slight; Luc # (Auto) 0.14; Luc % (Auto) 2; Lymphocytes # (A) 1.3 k/uL (1.0-4.8); Lymphocytes % (A) 17 %; MCH 27.4 pg (25.0-35.0); MCHC 31.9 g/dL (31.0-37.0); MCV 85.9 fL (80.0-100.0); Mean Platelet Volume 6.3; Monocytes # (A) 0.3 k/uL (0-1.0); Monocytes % (A) 4 %; Neutrophils # (A) 5.4 k/uL (1.3-7.7); Neutrophils % (A) 72 %; RDW 14.8 % (11.5-15.5); WBC 7.4 k/uL (3.8-10.6); WBC (Perox) 7.87
[2017-01-11 09:12] LABS: ALT 26 U/L (21-72); AST 18 U/L (17-59); Alkaline Phosphatase 60 U/L (38-126); Anion Gap 5 mmol/L; Blood Urea Nitrogen 6 mg/dL (9-20); Calcium 8.6 mg/dL (8.4-10.2); Carbon Dioxide 27 mmol/L (22-30); Chloride 108 mmol/L (98-107); Glucose 95 mg/dL (74-99); Non-African American GFR(MDRD) >60 (>60 ml/min/1.73 sqM); Sodium 140 mmol/L (137-145); Total Bilirubin 0.6 mg/dL (0.2-1.3); Total Protein 5.9 g/dL (6.3-8.2)
[2017-01-11] MEDS: PANTOPRAZOLE 40 MG/10 ML VIAL IV SCH (09:41)
--- NOTE | 2017-01-11 10:41 | P.CONS ---
History of Present Illness - Reason for Consult Consult date: 01/11/17 Rectal bleeding/GI bleed Requesting physician: Angelica Sepulveda - History of Present Illness 56-year-old gentleman admitted with multiple episodes of painless bright red blood per rectum 1 day. Recently hospitalized 2 weeks ago with acute hematemesis after undergoing oral surgery and prescribed Motrin 800 mg twice daily. EGD 12/28/2016 for evaluation of acute hematemesis reported moderately sized hiatal hernia, gastritis with no active bleeding. EGD colonoscopy October 2015 for evaluation of anemia reported gastritis duodenitis with 2 benign-appearing gastric body ulcers 2 cm in size, close to the cardia along the lesser curvature; colonoscopy reported sigmoid diverticulosis without strictures polyps or bleeding. Hemoglobin on 12/28/2016 was 12.9. Hemoglobin yesterday 12.5. INR 1.2. BUN 8. Creatinine 0.8. Heme stool positive. Patient was constipated prior to admission for 2 days. He was eating nuts popcorn steak and corn. Bilateral lower abdominal mild discomfort. 2 bowel movements last night that were blood-tinged but more dark and loss in quantity. No NSAIDs or aspirin or antiplatelet medications. No recent antibiotics. Review of Systems Constitutional: Denies fever, chills, sweats, weight gain, or loss. HEENT: History of migraines, denies blurred vision or loss, earaches, drainage, tinnitus, oral mucosal lesions, dysphagia, or odynophagia. Cardiac: Negative for chest pain, arrhythmias, or palpitation. Respiratory: COPD. Cigarette nicotine dependency. Negative for shortness of breath, hemoptysis, cough, or sputum production. Gastrointestinal: See HPI for pertinent findings. Genitourinary: History of left orchiectomy. Negative for hematuria, urgency, frequency, polyuria, dysuria, or penile discharge. Musculoskeletal: Negative for muscle aches, swelling, arthritis, and arthralgias. Neurologic: History of seizure disorder. Negative for stroke or TIA. Endocrine: Negative for thyroid problems. Skin: Negative for rash or itching. Psychiatric: Negative history for depression and anxiety All systems: negative (See HPI) Past Medical History Past Medical History: COPD, GI Bleed, Seizure Disorder Additional Past Medical History / Comment(s): migraines, last seizure - 15 yrs ago,anemia with bleeding gastric ulcer in 10/2015 and had a blood transfusion History of Any Multi-Drug Resistant Organisms: None Reported Past Surgical History: Cholecystectomy Additional Past Surgical History / Comment(s): amputation right thumb, skin graft right hand, left testicle removed. Past Anesthesia/Blood Transfusion Reactions: No Reported Reaction Additional Past Anesthesia/Blood Transfusion Reaction / Comm: pt has recieved blood transfusion - no reaction Past Psychological History: No Psychological Hx Reported Smoking Status: Current every day smoker Past Alcohol Use History: None Reported Past Drug Use History: None Reported - Past Family History Mother History Unknown: Yes Family Medical History: Myocardial Infarction ([place]) Father History Unknown: Yes Family Medical History: Myocardial Infarction ([place]) Medications and Allergies Allergies Allergy/AdvReac Type Severity Reaction Status Date / Time Penicillins Allergy Unknown Verified 01/10/17 20:57 Childhood codeine AdvReac Nausea & Verified 01/10/17 20:57 Vomiting Physical Exam Vitals: Vital Signs Temp Pulse Pulse Pulse Pulse Pulse Resp 01/11/17 07:00 97.4 F L 67 18 01/11/17 01:21 97.2 F L 69 16 01/10/17 23:30 72 16 01/10/17 21:18 86 84 78 01/10/17 20:06 97.5 F L 91 18 BP BP BP BP BP Pulse Ox 01/11/17 07:00 137/87 96 01/11/17 01:21 145/85 95 01/10/17 23:30 145/83 96 01/10/17 21:18 157/89 144/89 158/83 01/10/17 20:06 158/88 96 Intake and Output 01/10/17 01/11/17 01/11/17 22:59 06:59 14:59 Output Total 300 Balance -300 Output: Urine 300 Other: Voiding Method Toilet Weight 85.729 kg 84.368 kg General appearance: The patient is alert, oriented, in no acute distress. HET: Head is normocephalic and atraumatic. Pupils are equal and reactive. Oropharynx is clear without lesions. Neck: Supple without lymphadenopathy. Trachea midline. Heart: S1 S2. Regular rate and rhythm. Lungs: No crackles or wheezes are heard. Abdomen: Soft, very mild bilateral lower quadrant tenderness, nondistended with bowel sounds. No peritoneal signs. No palpable organomegaly or masses. Extremities: Normal skin color and turgor. No cyanosis, rash, ulceration, clubbing, or edema. Radial and pedal pulses are 2/4 bilaterally. Neurological: No focal deficits. Strength and sensation are grossly intact. Results CBC & Chem 7: 01/11/17 08:27 01/11/17 08:27 Labs: Abnormal Lab Results - Last 24 Hours (Table) 01/10/17 01/10/17 Range/Units 21:05 21:05 WBC 11.7 H (3.8-10.6) k/uL Hgb 12.5 L (13.0-17.5) gm/dL Hct 38.3 L (39.0-53.0) % Neutrophils # 9.7 H (1.3-7.7) k/uL BUN 8 L (9-20) mg/dL Glucose 130 H (74-99) mg/dL Total Protein 6.2 L (6.3-8.2) g/dL Assessment and Plan (1) Rectal bleeding Narrative/Plan: 56-year-old male with a history of sigmoid diverticulosis colonoscopy within the last year presents with bright red blood per rectum suspect diverticular in nature however ischemic possible infectious etiology cannot be entirely excluded. Status: Acute Plan: 1. Clear liquid diet. If no further bloody bowel movements today can advance to full liquids for dinner. 2. Monitor CBC closely. 3. Stool studies. 4. Endoscopy not planned at this time. We'll follow with you. Thank you for this kind referral and the opportunity to participate in the care of your patient. This consultation was discussed with Dr. Nguyễn. The impression and plan of care have been directed as dictated.
[2017-01-11] MEDS ORDERED: traMADol 50 MG TAB PO SCH (13:00)
[2017-01-11 15:12] VITALS: RESP 16
[2017-01-11] MEDS: traMADol 50 MG TAB PO PRN (19:45)
--- NOTE | 2017-01-11 21:26 | HP ---
Patient is a 56-year-old who came in with bright red blood per rectum, multiple episodes yesterday, without any significant drop in hemoglobin today. Patient had a couple such episodes today. Patient in the past came in with upper GI bleed, found to have ventral hernia and gastritis, was treated for that. Patient denied any fever, chills. Patient denied any significant abdominal pain. Patient denied any hematemesis. REVIEW OF SYSTEMS: CONSTITUTIONAL: No fever, no malaise, no fatigue. HEENT: No recent visual problems or hearing problems. Denied any sore throat. CARDIOVASCULAR: No chest pain, orthopnea, PND, no palpitations, no syncope. PULMONARY: No shortness of breath, no cough, no hemoptysis. GASTROINTESTINAL: As described in HPI. NEUROLOGICAL: No headaches, no weakness, no numbness. HEMATOLOGICAL: Denies any bleeding or petechiae. GENITOURINARY: Denies any burning micturition, frequency, or urgency. MUSCULOSKELETAL/RHEUMATOLOGICAL: Denies any joint pain, swelling or any muscle pain. ENDOCRINE: Denies any polyuria or polydipsia. The rest of the 14 point review of systems is negative. PAST MEDICAL HISTORY: GI bleed in the past, seizure disorder, COPD, migraines, cholecystectomy in the past. SOCIAL HISTORY: The patient does smoke, continues to smoke a pack per day. Denied any alcohol abuse or any drug abuse. FAMILY HISTORY: Mother had myocardial infarction. Father had myocardial infarction. PHYSICAL EXAMINATION: VITAL SIGNS: Temperature 97.4, pulse of 69, respiratory rate of 18, blood pressure is 137/87, saturating at 96% on room air. GENERAL: The patient is alert and oriented x3, not in any acute distress. Well developed, well nourished. HEENT: Pupils are round and equally reacting to light. EOMI. No scleral icterus. No conjunctival pallor. Normocephalic, atraumatic. No pharyngeal erythema. No thyromegaly. CARDIOVASCULAR: S1 and S2 present. No murmurs, rubs, or gallops. PULMONARY: Chest is clear to auscultation, no wheezing or crackles. ABDOMEN: Soft, nontender, nondistended, normoactive bowel sounds. No palpable organomegaly. MUSCULOSKELETAL: No joint swelling or deformity. EXTREMITIES: No cyanosis, clubbing, or pedal edema. NEUROLOGICAL: Gross neurological examination did not reveal any focal deficits. SKIN: No rashes. LABORATORY DATA: CBC, CMP are abnormal for elevated WBC count of 11,700, came down to 7400, hemoglobin 12.5, now 11.8. Abdominal x-ray did not any significant abnormality. Nonspecific nonobstructive bowel gas pattern. ASSESSMENT AND PLAN: 1. Rectal bleeding, most probably either diverticular or ischemic in origin. Possibility of infectious colitis is low, because of which patient is not being started on antibiotics. Patient is on IV fluids. Will monitor him. If patient continues to bleed, may need colonoscopy. Otherwise, the patient may not need anything. 2. Gastritis for which patient is on Prilosec. Patient is on Protonix here. 3. Patient has not been using seizure medications for a while and did not have any seizure at least in the last 6 months. 4. Leukocytosis, reactive secondary to gastrointestinal bleed.
[2017-01-12] MEDS: SODIUM CHLORIDE 0.9% 1,000 ML IV SCH (03:48)
[2017-01-12] MEDS: traMADol 50 MG TAB PO PRN ×2 (03:48→10:44)
[2017-01-12 07:29] VITALS: BP 154/91; PULSE 73; TEMP 97.1
[2017-01-12] MEDS: PANTOPRAZOLE 40 MG/10 ML VIAL IV SCH (09:01)
[2017-01-12] MEDS: ACETAMINOPHEN TAB 325 MG TAB PO PRN (09:02)
[2017-01-12 10:00] LABS: Basophils % (A) 1 %; CH 27.2; CHCM 31.5; Eosinophils # (A) 0.2 k/uL (0-0.7); Eosinophils % (A) 5 %; HCT 35.6 % (39.0-53.0); HDW 3.33; HGB 11.3 gm/dL (13.0-17.5); Hypochromasia Moderate; Luc # (Auto) 0.08; Luc % (Auto) 2; Lymphocytes # (A) 0.8 k/uL (1.0-4.8); Lymphocytes % (A) 17 %; MCH 27.5 pg (25.0-35.0); MCHC 31.7 g/dL (31.0-37.0); MCV 86.7 fL (80.0-100.0); Mean Platelet Volume 6.7; Monocytes # (A) 0.2 k/uL (0-1.0); Monocytes % (A) 4 %; Neutrophils # (A) 3.3 k/uL (1.3-7.7); Neutrophils % (A) 72 %; RBC 4.11 m/uL (4.30-5.90); RDW 14.6 % (11.5-15.5); WBC 4.5 k/uL (3.8-10.6); WBC (Perox) 4.67
[2017-01-12 10:01] LABS: Cholesterol 134 mg/dL (<200); HDL Cholesterol 22 mg/dL (40-60); Triglycerides 169 mg/dL (<150)
--- NOTE | 2017-01-12 10:08 | P.PN ---
Subjective Principal diagnosis: Rectal bleeding 56-year-old gentleman with a history of sigmoidal diverticulosis presents with rectal bleeding suspected diverticular in nature. No further bowel movements or recurrent bleeding for more than 36 hours. Tolerating liquid diet. Hemoglobin 11.3. Objective - Vital Signs Vital signs: Vital Signs Temp 97.1 F L 01/12/17 07:00 Pulse 73 01/12/17 07:00 Resp 16 01/12/17 07:00 BP 154/91 01/12/17 07:00 Pulse Ox 94 L 01/12/17 07:00 Intake & Output 01/11/17 01/12/17 01/12/17 18:59 06:59 18:59 Intake Total 800 Balance 800 Intake: Intake, IV Titration 800 Amount Sodium Chloride 0.9% 1, 800 000 ml @ 100 mls/hr IV . Q10H [facility] Rx#:[id number] Other: Voiding Method Toilet Toilet # Voids 4 2 # Bowel Movements 1 - Exam General appearance: The patient is alert, oriented, in no acute distress. HET: Head is normocephalic and atraumatic. Pupils are equal and reactive. Oropharynx is clear without lesions. Neck: Supple without lymphadenopathy. Trachea midline. Heart: S1 S2. Regular rate and rhythm. Lungs: No crackles or wheezes are heard. Abdomen: Soft, nontender, nondistended with bowel sounds. No peritoneal signs. No palpable organomegaly or masses. Extremities: Normal skin color and turgor. No cyanosis, rash, ulceration, clubbing, or edema. Radial and pedal pulses are 2/4 bilaterally. Neurological: No focal deficits. Strength and sensation are grossly intact. - Labs CBC & Chem 7: 01/12/17 08:56 01/11/17 08:27 Labs: Abnormal Lab Results - Last 24 Hours (Table) 01/12/17 01/12/17 Range/Units 08:56 08:56 RBC 4.11 L (4.30-5.90) m/uL Hgb 11.3 L (13.0-17.5) gm/dL Hct 35.6 L (39.0-53.0) % Lymphocytes # 0.8 L (1.0-4.8) k/uL Triglycerides 169 H (<150) mg/dL HDL Cholesterol 22 L (40-60) mg/dL Microbiology - Last 24 Hours (Table) 01/11/17 11:24 Stool for WBCs - Final Stool 01/11/17 11:24 Stool Culture - Preliminary Stool Assessment and Plan (1) Rectal bleeding Narrative/Plan: 56-year-old male with a history of sigmoid diverticulosis colonoscopy within the last year presents with bright red blood per rectum suspect diverticular in nature however ischemic possible infectious etiology cannot be entirely excluded. Status: Acute Plan: 1. Low residue diet. Stool softeners daily. 2. If advanced diet tolerated agreeable for discharge. 3. Follow up in GI office as needed. Assessment and plan a care discussed with Dr. Nguyễn.
--- NOTE | 2017-01-21 23:24 | P.DS ---
Providers Date of admission: 01/10/17 22:50 Expected date of discharge: 01/12/17 Attending physician: Angelica Navarro Consults: 01/10/17 21:55 Consult Physician Routine Consulting Provider: Skye Nguyễn Consult Reason/Comments: GI bleed Do you want consulting provider notified?: Yes, Notify in am Primary care physician: Stated None Dr. Lara Hospital Course: Final Diagnoses: 1. Rectal bleeding suspect diverticular or ischemic in origin. Possibility of infectious colitis low, therefore antibiotics not initiated 2. Gastritis, maintained on PPI 3. Leukocytosis, reactive secondary to GI bleed 4. Patient is nothing using seizure medications for a while and states no seizure activity for the last 6 months Hospital course: This is a 56-year-old gentleman admitted with bright red rectal bleeding without significant drop in hemoglobin, 12.5, in a patient with history of sigmoid diverticulosis. Bleeding subsided. Recent EGD reported moderate hiatal hernia, gastritis with no active bleed and placed on PPI. Maintained on IV fluids and PPI. Evaluated by GI. Diet advanced, tolerated. Cleared by GI for discharge. Patient is being discharged home in a stable condition with guarded prognosis. The impression and plan of care has been dictated as directed as a scribe. .: I performed a H&P examination of this patient and discussed the same with the dictator. I agree with the dictator's note. Any additional findings/opinions/ etc. will be noted. Patient Condition at Discharge: Stable Plan - Discharge Summary New Discharge Prescriptions: No Action Omeprazole [PriLOSEC] 40 mg PO AC-BRKFST #14 capsule. Discharge Medication List Omeprazole [PriLOSEC] 40 mg PO AC-BRKFST #14 capsule. 12/28/16 [Rx] Follow up Appointment(s)/Referral(s): Skye Nguyễn MD [STAFF PHYSICIAN] - As Needed None,Stated [Primary Care Provider] - 1 Week ([email or web address] for physician referral) Patient Instructions/Handouts: Diverticulitis (DC), Rectal Bleeding (DC) Activity/Diet/Wound Care/Special Instructions: Regular diet. NO smoking, cessation information provided. Discharge Disposition: HOME SELF-CARE
== END 2017-01-12 13:05 | disposition home or self-care (01) ==
LOC: EC 19:46 → INTOOBSV 22:50 → 4MS4W 22:50
PROVIDERS: ADMIT Hospitalist; ATTEND Hospitalist
DX: K62.5 Hemorrhage of anus and rectum (principal); K29.70 Gastritis, unspecified, without bleeding; Z88.0 Allergy status to penicillin; Z88.5 Allergy status to narcotic agent; F17.200 Nicotine dependence, unspecified, uncomplicated; Z82.49 Family history of ischemic heart disease and other diseases of the circulatory system; K59.00 Constipation, unspecified; Z87.11 Personal history of peptic ulcer disease; D64.9 Anemia, unspecified
CPT/HCPCS: 99285; 96361 ×3; 96376; 96374; 36415; 86900; 86901; 80061; 80053 ×2; 82150; 83690; 85025 ×3; 85610; 85730; 86850; 86880; 82272; 81003; 87324; 87045; 89055; 87046; 74020; G0378 ×3; C9113 ×2

== ENCOUNTER 2017-03-15 11:36 | Emergency (ER) | payer OTHER ==
[2017-03-15 11:54] VITALS: RESP 20
--- NOTE | 2017-03-15 13:04 | ED ---
General Adult HPI - General Chief complaint: Extremity Problem,Nontraumatic Stated complaint: spider bite left knee/right hip Time Seen by Provider: 03/15/17 12:48 Source: patient, RN notes reviewed Mode of arrival: ambulatory Limitations: no limitations - History of Present Illness Initial comments: Patient 57-year-old male who presents emergency room today with multiple complaints. Patient does admit that he's worried about possible infection to the left anterior knee. He does admit that 3 weeks ago he noticed what could be possibly a small bug bite. He states she's been using peroxide to clean the area. He states he was able to small amount of drainage and discharge. He states it feels like it skin slightly worse. He also admits that he's been expressing some pain to the right side of his lower back radiating into the right hip area over the last week. He states worse with certain movements. Patient denies any bowel or bladder incontinence retention. Denies any saddle anesthesia. Denies any other complaints or associated symptoms. Patient denies any recent fever, chills, shortness of breath, chest pain, back pain, abdominal pain, nausea or vomiting, numbness or tingling, dysuria or hematuria, constipation or diarrhea, headaches or visual changes, or any other complaints. - Related Data Previous Rx's Medication Instructions Recorded Omeprazole [PriLOSEC] 40 mg PO AC-BRKFST #14 capsule. 12/28/16 Cyclobenzaprine [Flexeril] 10 mg PO TID #20 tab 03/15/17 Hydrocodone/Acetaminophen [Stark 1 each PO Q6HR PRN #20 tab 03/15/17 5-325] Sulfamethox-Tmp 800-160Mg [Bactrim 1 tab PO Q12HR #20 tab 03/15/17 DS 800-160 mg] Allergies Allergy/AdvReac Type Severity Reaction Status Date / Time Penicillins Allergy Unknown Verified 03/15/17 11:54 Childhood codeine AdvReac Nausea & Verified 03/15/17 11:54 Vomiting Review of Systems ROS Statement: Those systems with pertinent positive or pertinent negative responses have been documented in the HPI. ROS Other: All systems not noted in ROS Statement are negative. Past Medical History Past Medical History: COPD, GI Bleed, Seizure Disorder Additional Past Medical History / Comment(s): migraines, last seizure - 15 yrs ago,anemia with bleeding gastric ulcer in 10/2015 and had a blood transfusion History of Any Multi-Drug Resistant Organisms: None Reported Past Surgical History: Cholecystectomy Additional Past Surgical History / Comment(s): amputation right thumb, skin graft right hand, left testicle removed. Past Anesthesia/Blood Transfusion Reactions: No Reported Reaction Additional Past Anesthesia/Blood Transfusion Reaction / Comment(s): pt has recieved blood transfusion - no reaction Past Psychological History: No Psychological Hx Reported Smoking Status: Current every day smoker Past Alcohol Use History: None Reported Past Drug Use History: None Reported - Past Family History Mother History Unknown: Yes Family Medical History: Myocardial Infarction ([place]) Father History Unknown: Yes Family Medical History: Myocardial Infarction ([place]) General Exam - General Exam Comments Initial Comments: General: The patient is awake and alert, in no distress, and does not appear acutely ill. Neck: The neck is supple, there is no tenderness or JVD. Cardiovascular: There is a regular rate and rhythm. No murmur, rub or gallop is appreciated. Respiratory: Lungs are clear to auscultation, respirations are non-labored, breath sounds are equal. No wheezes, stridor, rales, or rhonchi. Musculoskeletal: Patient does have a normal appearance of the cervical, thoracic , lumbar spine. No step-offs forms appreciated. Mild tenderness lower lumbar from L2 to L5. Patient does have increased paravertebral tenderness on the right side and over the SI joint. Patient has normal appearance of the right knee. No bony tenderness. Strength in both upper and lower extremities is 5/ 5. Sensation intact pulses equal bilaterally 2+. Normal gait Neurological: A&O x 3. CN II-XII intact, There are no obvious motor or sensory deficits. Coordination appears grossly intact. Speech is normal. Skin: Patient does have small ulcerated area to the anterior aspect of the left knee. There is mild tenderness locally. There is faint redness locally. No fluctuance. Psychiatric: Normal mood and affect. Limitations: no limitations Course Vital Signs 03/15/17 11:51 Temperature 98.1 F Pulse Rate 88 Respiratory 20 Rate Blood Pressure 163/94 O2 Sat by Pulse 96 Oximetry Medical Decision Making - Medical Decision Making Patient reexamined at this time shows no signs of distress. X-ray of the left knee shows no sign of foreign body. Patient does have some redness around the OB currently prescription for antibiotic. At this time. Patient to continue with topical antibiotics use oral antibiotic if symptoms increase or worsen. Patient x-ray of his lumbar spine shows degenerative changes. No acute abnormalities. Patient does admit to some pain radiating to the right hip. Patient will be given short prescription of pain medication along with a muscle relaxer and advised that it may make him drowsy. Advised follow-up his family doctor over the next 2 days. Advised return if any symptoms increase or worsen or for new concerns. Patient states understanding and is in agreement. Disposition Clinical Impression: Acute low back pain, Insect bite Disposition: HOME SELF-CARE Condition: Good Instructions: Acute Low Back Pain (ED) Additional Instructions: Please use medication as discussed. Please follow-up with family doctor in the next 2 days of symptoms have not improved. Please return to emergency room if the symptoms increase or worsen or for any other concerns. Prescriptions: Cyclobenzaprine [Flexeril] 10 mg PO TID #20 tab Hydrocodone/Acetaminophen [Stark 5-325] 1 each PO Q6HR PRN #20 tab PRN Reason: Pain Sulfamethox-Tmp 800-160Mg [Bactrim DS 800-160 mg] 1 tab PO Q12HR #20 tab Referrals: None,Stated [Primary Care Provider] - 1-2 days Time of Disposition: 14:08
--- NOTE | 2017-03-15 13:33 | XR ---
EXAMINATION TYPE: XR knee limited LT DATE OF EXAM: 03/15/2017 CLINICAL HISTORY: Superficial nonhealing wound inferior to the patella. TECHNIQUE: Three views of the left knee are obtained. COMPARISON: None. FINDINGS: There is no acute fracture/dislocation evident in left knee. There is no evidence of subc utaneous emphysema or osseous erosion. No radiopaque foreign body is seen. Medial joint space narrowi ng and tibial sclerosis are noted. The overlying soft tissue appears unremarkable. IMPRESSION: 1. No evidence of osseous erosion, radiopaque foreign body or subcutaneous emphysema. 2. There is no acute fracture or dislocation in the left knee. 3. Mild osteoarthrosis of the medial compartment.
--- NOTE | 2017-03-15 13:36 | XR ---
EXAMINATION TYPE: XR lumbar spine 2 or 3V DATE OF EXAM: 03/15/2017 CLINICAL HISTORY: Chronic low back pain radiating to the right lower extremity. TECHNIQUE: Frontal and lateral images of the lumbar spine are obtained. COMPARISON: None FINDINGS: There are 5 lumbar type vertebral bodies identified. The lumbar spine shows satisfactory alignment without evidence of acute fracture or dislocation. Vertebral body heights are maintained. I ntervertebral disc space narrowing is seen at L4-L5 and L5-S1. Anterior osteophytes are present at L5 and T12-L1. Facet arthropathy is seen at L4-5 and L5-S1. 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 The overlying soft tissue appears unremarkable. Cholecystectomy cli p is noted within the right upper quadrant. IMPRESSION: 1. No acute fracture or dislocation is seen in the lumbar spine. 2. Degenerative changes of the lumbar spine, most exaggerated at L4-S1.
[2017-03-15 14:22] VITALS: BP 168/105; PULSE 85; TEMP 98.3
== END 2017-03-15 14:22 | disposition home or self-care (01) ==
LOC: EC 11:36
DX: S80.262D Insect bite (nonvenomous), left knee, subsequent encounter (principal); M47.816 Spondylosis without myelopathy or radiculopathy, lumbar region; F17.200 Nicotine dependence, unspecified, uncomplicated; Z88.5 Allergy status to narcotic agent; Z88.0 Allergy status to penicillin
CPT/HCPCS: 72100; 99283

== ENCOUNTER 2017-03-26 15:25 | Emergency (ER) | payer OTHER ==
[2017-03-26 15:42] VITALS: BP 155/96; PULSE 103; RESP 18; TEMP 99.3
--- NOTE | 2017-03-26 16:22 | XR ---
EXAMINATION TYPE: XR knee complete LT DATE OF EXAM: 03/26/2017 CLINICAL HISTORY: pain TECHNIQUE: Three views of the left knee are obtained. COMPARISON: March 15, 2017 FINDINGS: There is no acute fracture/dislocation. Mild osteoarthrosis of the medial compartment. Th e overlying soft tissue appears unremarkable. IMPRESSION: There is no acute fracture or dislocation ICD 10 NO FRACTURE, INITIAL EVALUATION
--- NOTE | 2017-03-26 16:25 | ED ---
Fall HPI - General Chief Complaint: Fall Stated Complaint: knee & back pain Time Seen by Provider: 03/26/17 15:47 Source: patient, RN notes reviewed Mode of arrival: ambulatory Limitations: no limitations - History of Present Illness Initial Comments: This a 57-year-old male presents emergency Department chief complaint of left knee pain, back pain. Patient states his chronic issues last 30 years of his left knee. Patient states she's had MRIs and orthopedic evaluations and past with no acute findings. He states it just gives out on him sometimes. He states that he does have a wear a brace on occasion to help stabilize it. Patient states he has not been wearing at the last few days and states that he fell. Patient complains that he fell onto his left knee has increasing pain. Patient also states that during the motion of falling onto his left knee he km his back. He states he never fell onto his back onto his pelvis region. He states his chronic issues of his back and states that he feels that he exacerbated his issues. Patient denies any head injury no LOC no neck pain. Patient denies any bowel, bladder incontinence or retention. - Related Data Previous Rx's Medication Instructions Recorded Methocarbamol [Robaxin] 500 mg PO TID PRN #15 tab 03/26/17 Allergies Allergy/AdvReac Type Severity Reaction Status Date / Time Penicillins Allergy Unknown Verified 03/26/17 15:58 Childhood aspirin AdvReac PATIENT Verified 03/26/17 15:58 HAS AN ULCER codeine AdvReac Nausea & Verified 03/26/17 15:58 Vomiting ibuprofen [From Motrin] AdvReac PATIENT Verified 03/26/17 15:58 HAS AN ULCER Review of Systems ROS Statement: Those systems with pertinent positive or pertinent negative responses have been documented in the HPI. ROS Other: All systems not noted in ROS Statement are negative. Past Medical History Past Medical History: COPD, GI Bleed, Seizure Disorder Additional Past Medical History / Comment(s): migraines, last seizure - 15 yrs ago,anemia with bleeding gastric ulcer in 10/2015 and had a blood transfusion History of Any Multi-Drug Resistant Organisms: None Reported Past Surgical History: Cholecystectomy Additional Past Surgical History / Comment(s): amputation right thumb, skin graft right hand, left testicle removed. Past Anesthesia/Blood Transfusion Reactions: No Reported Reaction Additional Past Anesthesia/Blood Transfusion Reaction / Comment(s): pt has recieved blood transfusion - no reaction Past Psychological History: No Psychological Hx Reported Smoking Status: Current every day smoker Past Alcohol Use History: None Reported Past Drug Use History: None Reported - Past Family History Mother History Unknown: Yes Family Medical History: Myocardial Infarction ([place]) Father History Unknown: Yes Family Medical History: Myocardial Infarction ([place]) General Exam Limitations: physical limitation General appearance: alert, in no apparent distress Head exam: Present: atraumatic, normocephalic, normal inspection Respiratory exam: Present: normal lung sounds bilaterally. Absent: respiratory distress, wheezes, rales, rhonchi, stridor Cardiovascular Exam: Present: regular rate, normal rhythm, normal heart sounds. Absent: systolic murmur, diastolic murmur, rubs, gallop, clicks GI/Abdominal exam: Present: soft, normal bowel sounds. Absent: distended, tenderness, guarding, rebound, rigid Extremities exam: Present: other (Left knee there are multiple old scars noted there is some ecchymosis those this appears to be old leg is neurovascularly intact and equal compared to the right patient has mild tenderness of the anterior surface with no laxity noted on valgus, varus, anterior or posterior drawer test.) Back exam: Present: full ROM, tenderness (Mild lumbar paraspinal tenderness), paraspinal tenderness. Absent: vertebral tenderness Neurological exam: Present: alert, oriented X3, CN II-XII intact, reflexes normal. Absent: motor sensory deficit Skin exam: Present: warm, dry, intact, normal color. Absent: rash Course Vital Signs 03/26/17 15:38 Temperature 99.3 F Pulse Rate 103 H Respiratory 18 Rate Blood Pressure 155/96 O2 Sat by Pulse 97 Oximetry Medical Decision Making - Medical Decision Making Is a 57-year-old male present emergency department for knee pain, back pain. Patient is lumbar sprain secondary is fall. Patient has contusion to his left knee he is advised to ice, elevate and take Tylenol. Patient was given muscle relaxers for his back. Patient be discharged with follow-up with orthopedics return parameters were discussed. Disposition Clinical Impression: Fall, Contusion of left knee, Lumbar strain Disposition: HOME SELF-CARE Condition: Stable Instructions: Low Back Strain (ED), Knee Pain (ED) Additional Instructions: Please return to the Emergency Department if symptoms worsen or any other concerns. Prescriptions: Methocarbamol [Robaxin] 500 mg PO TID PRN #15 tab PRN Reason: muscle spasms Referrals: None,Stated [Primary Care Provider] - 1-2 days Alexx Aguero DO [Doctor of Osteopathic Medicine] - 1-2 days Time of Disposition: 16:28
== END 2017-03-26 16:40 | disposition home or self-care (01) ==
LOC: EC 15:25
DX: S39.012A Strain of muscle, fascia and tendon of lower back, initial encounter (principal); S80.02XA Contusion of left knee, initial encounter; F17.200 Nicotine dependence, unspecified, uncomplicated; Z88.0 Allergy status to penicillin; Z88.5 Allergy status to narcotic agent; Z88.6 Allergy status to analgesic agent; W19.XXXA Unspecified fall, initial encounter
CPT/HCPCS: 99283; 73562; L1830

== ENCOUNTER 2017-04-14 23:37 | Emergency (ER) | payer OTHER ==
[2017-04-14] MEDS ORDERED: SODIUM CHLORIDE 0.9% 500 ML IV STA (23:51)
[2017-04-15] MEDS ORDERED: RX INFO: IV CONTRAST WAS GIVEN 1 EACH MISC MISCELLANE PRN (00:02)
[2017-04-15] MEDS ORDERED: HYDROmorphone 1 MG/ML 1 ML SYRINGE IM STA (00:02)
[2017-04-15] MEDS ORDERED: PANTOPRAZOLE 40 MG/10 ML VIAL IVP STA (00:04)
[2017-04-15 00:50] LABS: Anisocytosis Slight; Basophils # (A) 0.1 k/uL (0-0.2); Basophils % (A) 1 %; CH 27.1; CHCM 32.5; Eosinophils # (A) 0.2 k/uL (0-0.7); Eosinophils % (A) 2 %; HCT 41.2 % (39.0-53.0); HDW 3.08; HGB 12.9 gm/dL (13.0-17.5); Luc # (Auto) 0.12; Luc % (Auto) 1; Lymphocytes # (A) 1.6 k/uL (1.0-4.8); Lymphocytes % (A) 18 %; MCH 26.2 pg (25.0-35.0); MCHC 31.3 g/dL (31.0-37.0); MCV 83.9 fL (80.0-100.0); Mean Platelet Volume 7.3; Monocytes # (A) 0.4 k/uL (0-1.0); Monocytes % (A) 4 %; Neutrophils # (A) 6.9 k/uL (1.3-7.7); Neutrophils % (A) 74 %; RBC 4.92 m/uL (4.30-5.90); RDW 18.8 % (11.5-15.5); WBC 9.3 k/uL (3.8-10.6); WBC (Perox) 9.46
[2017-04-15 01:02] LABS: INR 1.2 (<1.2); Partial Thromboplastin Time 23.2 sec (22.0-30.0); Prothrombin Time 11.7 sec (9.0-12.0)
[2017-04-15 01:04] LABS: ALT 33 U/L (21-72); AST 24 U/L (17-59); Alkaline Phosphatase 56 U/L (38-126); Anion Gap 8 mmol/L; Blood Urea Nitrogen 10 mg/dL (9-20); Calcium 9.1 mg/dL (8.4-10.2); Carbon Dioxide 26 mmol/L (22-30); Chloride 107 mmol/L (98-107); Glucose 105 mg/dL (74-99); Magnesium 1.6 mg/dL (1.6-2.3); Non-African American GFR(MDRD) >60 (>60 ml/min/1.73 sqM); Potassium 4.3 mmol/L (3.5-5.1); Sodium 141 mmol/L (137-145); Total Bilirubin 0.2 mg/dL (0.2-1.3); Total Protein 6.1 g/dL (6.3-8.2)
[2017-04-15 01:29] LABS: Creatine Kinase MB 0.9 ng/mL (0.0-2.4)
--- NOTE | 2017-04-15 03:27 | CT ---
CT abdomen and pelvis with contrast INDICATION: pain TECHNIQUE: Multiple, contiguous axial cuts of the abdomen and pelvis are obtained from the lung bases to the ischial tuberosities following the administration of IV contrast. Radiation Dose: CTDIvol: 10.6 mGy DLP: 595.1 mGy-cm CTDIvol: 13.1 mGy DLP: 324.7 mGy-cm This CT exam was performed using one or more of the following dose reduction techniques: automated exposure control, adjustment of the mA and/or kV according to patient size, and/or use of iterative reconstruction technique. COMPARISON: CT chest, abdomen, pelvis 10/31/15 FINDINGS: Similar to slightly worsened appearance of the streaky irregular linear opacities in the right middle lobe, medial right lower lobe, and the partially visualized left upper lobe of the lungs which may be followed up on subsequent examinations with a dedicated CT chest. There is a 2 mm density in the lateral right lower lobe of the lung which may represent calcified granuloma. Continued attention on follow up is recommended. There is nodularity along the medial aspect of the partially visualized left upper lobe of the lung. There appears to be mild bronchial wall thickening. Partially visualized ground-glass opacities in the posterior right lower lung lobe. Motion at lung bases limits evaluation. The liver and spleen are normal in size. Cholecystectomy. Prominence of the common bile duct and minimal central prominence of the intrahepatic bile ducts may be due to reservoir effect of a cholecystectomy. Clinical correlation is suggested. The pancreas appears grossly within normal limits. The adrenal gland are unremarkable. No evidence for hydronephrosis. Minimal perinephric stranding bilaterally, nonspecific. The bladder appears mildly thickened for the degree of distension. Moderate sized hiatal hernia. Scattered colonic diverticulosis. The appendix appears normal caliber Fat containing ventral wall hernia. Small fat containing inguinal hernias bilaterally. Again seen is a linear density in the pelvis which may represent a surgical clip. Aorta is normal caliber. Atherosclerosis. Nonspecific scattered retroperitoneal and mesenteric lymph nodes. Similar sclerotic focus in the right iliac bone. Degenerative changes of the partially visualized lower thoracic spine and lumbar spine. Similar appearing endplate deformity of the L3 vertebral body. There are endplate irregularities of the lower thoracic vertebral bodies with some height loss which appear similar. IMPRESSION: 1. Partially visualized ground-glass opacities in the posterior right lower lung lobe may represent an area of aspiration pneumonitis, although other inflammatory/infectious process is a possibility. Attention to this area on followup is recommended to ensure resolution. 2. There appears to be mild bronchial wall thickening which may be seen in the setting of bronchitis. There is nodularity along the medial aspect of the partially visualized left upper lobe of the lung. Additional lung findings as above. 3. Prominence of the common bile duct and minimal central prominence of the intrahepatic bile ducts may be due to reservoir effect of a cholecystectomy. Clinical correlation is suggested. 4. The bladder appears mildly thickened for the degree of distension. Please correlate with urinalysis as clinically warranted. 5. Moderate sized hiatal hernia. 6. Scattered colonic diverticulosis.
[2017-04-15] MEDS ORDERED: HYDROcodone/APAP 5-325MG 1 EACH TAB PO STA (03:36)
[2017-04-15 04:11] LABS: Appearance,Urine Clear (Clear); Bilirubin,Urine Negative (Negative); Glucose,Urine (UA) Negative (Negative); Ketones,Urine Negative (Negative); Leukocyte Esterase,Urine Negative (Negative); Nitrite,Urine Negative (Negative); Protein,Urine Trace (Negative); UA Billing (MACRO vs. MICRO) CHEM; Urobilinogen,Urine <2.0 mg/dL (<2.0)
[2017-04-15 04:19] LABS: Specific Gravity,Urine >1.050 (1.001-1.035)
[2017-04-15 04:42] VITALS: BP 151/95; PULSE 72; RESP 18; TEMP 97.8
--- NOTE | 2017-04-15 04:46 | ED ---
General Adult HPI - General Chief complaint: GI Bleed Stated complaint: Abd Pain-Hx Hernia/Black Stool Time Seen by Provider: 04/14/17 23:51 Source: patient, RN notes reviewed Mode of arrival: ambulatory Limitations: no limitations - History of Present Illness Initial comments: 57-year-old male presents with chief complaint of abdominal pain and dark tarry stools per patient does have history of peptic ulcer disease and GI bleed. He reports over the past several days his stool is dark. He denies any nausea or vomiting. Denies diarrhea. His abdominal pain began when he was lifting earlier the day. It is in the center of his abdomen. He believes he may have a hernia. Denies any groin or testicular pain. Denies any radiating symptoms to his pain. Pain is sharp and constant in nature. Patient has been taking iron supplementation for mild anemia secondary to his previous GI bleed. He is not on any NSAIDs. He denies alcohol consumption. He is not on any daily medication. Denies any bright red rectal bleeding. - Related Data Previous Rx's Medication Instructions Recorded HYDROcodone/APAP 5-325MG [[place] 1 tab PO Q6HR PRN #12 tab 04/15/17 5-325] Allergies Allergy/AdvReac Type Severity Reaction Status Date / Time Penicillins Allergy Unknown Verified 04/14/17 23:47 Childhood aspirin AdvReac PATIENT Verified 04/14/17 23:47 HAS AN ULCER codeine AdvReac Nausea & Verified 04/14/17 23:47 Vomiting ibuprofen [From Motrin] AdvReac PATIENT Verified 04/14/17 23:47 HAS AN ULCER Review of Systems ROS Statement: Those systems with pertinent positive or pertinent negative responses have been documented in the HPI. ROS Other: All systems not noted in ROS Statement are negative. Past Medical History Past Medical History: COPD, GI Bleed, Seizure Disorder Additional Past Medical History / Comment(s): migraines, last seizure - 15 yrs ago,anemia with bleeding gastric ulcer in 10/2015 and had a blood transfusion History of Any Multi-Drug Resistant Organisms: None Reported Past Surgical History: Cholecystectomy Additional Past Surgical History / Comment(s): amputation right thumb, skin graft right hand, left testicle removed. Past Anesthesia/Blood Transfusion Reactions: No Reported Reaction Additional Past Anesthesia/Blood Transfusion Reaction / Comment(s): pt has recieved blood transfusion - no reaction Past Psychological History: No Psychological Hx Reported Smoking Status: Current every day smoker Past Alcohol Use History: None Reported Past Drug Use History: None Reported - Past Family History Mother History Unknown: Yes Family Medical History: Myocardial Infarction ([place]) Father History Unknown: Yes Family Medical History: Myocardial Infarction ([place]) General Exam Limitations: no limitations General appearance: alert, in no apparent distress Head exam: Present: atraumatic, normocephalic Eye exam: Present: normal appearance, PERRL ENT exam: Present: normal exam, mucous membranes moist Neck exam: Present: normal inspection. Absent: tenderness, meningismus Respiratory exam: Present: normal lung sounds bilaterally. Absent: respiratory distress Cardiovascular Exam: Present: regular rate, normal rhythm GI/Abdominal exam: Present: soft, tenderness (Tenderness in the periumbilical region,), normal bowel sounds. Absent: guarding, rebound, rigid Rectal exam: Present: normal inspection, heme (-) stool, black stool Extremities exam: Present: normal inspection, full ROM, normal capillary refill. Absent: pedal edema Neurological exam: Present: alert, oriented X3 Psychiatric exam: Present: normal affect, normal mood Skin exam: Present: warm, dry. Absent: cyanosis, diaphoretic Course Vital Signs 04/14/17 23:44 Temperature 98.1 F Pulse Rate 93 Respiratory 20 Rate Blood Pressure 156/85 O2 Sat by Pulse 97 Oximetry - Reevaluation(s) Reevaluation #1: 04/15/17 04:43 Reevaluation, patient is feeling better. Medical Decision Making - Medical Decision Making 57-year-old male presenting with sudden onset of abdominal pain all lifting. And concern for black tarry stools. Patient has no nausea or vomiting. No bright red rectal bleeding. Patient's abdominal exam does show some mild tenderness in the periumbilical region, no palpable hernia, no rebound or guarding. Abdomen is overall soft. Hemoccult is negative. Stool is dark, this is likely secondary to iron supplementation. Laboratory studies including CBC, CMP, lactic acid and urinalysis are unremarkable. CT is obtained and shows no acute intra-abdominal process to explain the patient's pain. On reevaluation patient is feeling better. He will follow-up with his primary care physician. Return to emergency department with worsening symptoms. - Lab Data Result diagrams: 04/15/17 00:35 04/15/17 00:35 Lab Results 04/15/17 04/15/17 04/15/17 Range/Units 00:35 00:35 00:35 WBC 9.3 (3.8-10.6) k/uL RBC 4.92 (4.30-5.90) m/uL Hgb 12.9 L (13.0-17.5) gm/dL Hct 41.2 (39.0-53.0) % MCV 83.9 (80.0-100.0) fL MCH 26.2 (25.0-35.0) pg MCHC 31.3 (31.0-37.0) g/dL RDW 18.8 H (11.5-15.5) % Plt Count 329 (150-450) k/uL Neutrophils % 74 % Lymphocytes % 18 % Monocytes % 4 % Eosinophils % 2 % Basophils % 1 % Neutrophils # 6.9 (1.3-7.7) k/uL Lymphocytes # 1.6 (1.0-4.8) k/uL Monocytes # 0.4 (0-1.0) k/uL Eosinophils # 0.2 (0-0.7) k/uL Basophils # 0.1 (0-0.2) k/uL Anisocytosis Slight PT 11.7 (9.0-12.0) sec INR 1.2 H (<1.2) APTT 23.2 (22.0-30.0) sec Sodium (137-145) mmol/L Potassium (3.5-5.1) mmol/L Chloride (98-107) mmol/L Carbon Dioxide (22-30) mmol/L Anion Gap mmol/L BUN (9-20) mg/dL Creatinine (0.66-1.25) mg/dL Est GFR (MDRD) Af Amer (>60 ml/min/1.73 sqM) Est GFR (MDRD) Non-Af (>60 ml/min/1.73 sqM) Glucose (74-99) mg/dL Plasma Lactic Acid Shad (0.7-2.0) mmol/L Calcium (8.4-10.2) mg/dL Magnesium (1.6-2.3) mg/dL Total Bilirubin (0.2-1.3) mg/dL AST (17-59) U/L ALT (21-72) U/L Alkaline Phosphatase (38-126) U/L Total Creatine Kinase 140 (55-170) U/L CK-MB (CK-2) 0.9 (0.0-2.4) ng/mL CK-MB (CK-2) Rel Index 0.6 Total Protein (6.3-8.2) g/dL Albumin (3.5-5.0) g/dL Lipase (23-300) U/L Urine Color Urine Appearance (Clear) Urine pH (5.0-8.0) Ur Specific [place] (1.001-1.035) Urine Protein (Negative) Urine Glucose (UA) (Negative) Urine Ketones (Negative) Urine Blood (Negative) Urine Nitrite (Negative) Urine Bilirubin (Negative) Urine Urobilinogen (<2.0) mg/dL Ur Leukocyte Esterase (Negative) Stool Occult Blood (Negative) Blood Type Blood Type Recheck Weak D (Du) Antibody Screen Spec Expiration Date 04/15/17 04/15/17 04/15/17 Range/Units 00:35 00:35 00:35 WBC (3.8-10.6) k/uL RBC (4.30-5.90) m/uL Hgb (13.0-17.5) gm/dL Hct (39.0-53.0) % MCV (80.0-100.0) fL MCH (25.0-35.0) pg MCHC (31.0-37.0) g/dL RDW (11.5-15.5) % Plt Count (150-450) k/uL Neutrophils % % Lymphocytes % % Monocytes % % Eosinophils % % Basophils % % Neutrophils # (1.3-7.7) k/uL Lymphocytes # (1.0-4.8) k/uL Monocytes # (0-1.0) k/uL Eosinophils # (0-0.7) k/uL Basophils # (0-0.2) k/uL Anisocytosis PT (9.0-12.0) sec INR (<1.2) APTT (22.0-30.0) sec Sodium 141 (137-145) mmol/L Potassium 4.3 (3.5-5.1) mmol/L Chloride 107 (98-107) mmol/L Carbon Dioxide 26 (22-30) mmol/L Anion Gap 8 mmol/L BUN 10 (9-20) mg/dL Creatinine 0.90 (0.66-1.25) mg/dL Est GFR (MDRD) Af Amer >60 (>60 ml/min/1.73 sqM) Est GFR (MDRD) Non-Af >60 (>60 ml/min/1.73 sqM) Glucose 105 H (74-99) mg/dL Plasma Lactic Acid Shad 1.1 (0.7-2.0) mmol/L Calcium 9.1 (8.4-10.2) mg/dL Magnesium 1.6 (1.6-2.3) mg/dL Total Bilirubin 0.2 (0.2-1.3) mg/dL AST 24 (17-59) U/L ALT 33 (21-72) U/L Alkaline Phosphatase 56 (38-126) U/L Total Creatine Kinase (55-170) U/L CK-MB (CK-2) (0.0-2.4) ng/mL CK-MB (CK-2) Rel Index Total Protein 6.1 L (6.3-8.2) g/dL Albumin 3.4 L (3.5-5.0) g/dL Lipase 86 (23-300) U/L Urine Color Urine Appearance (Clear) Urine pH (5.0-8.0) Ur Specific [place] (1.001-1.035) Urine Protein (Negative) Urine Glucose (UA) (Negative) Urine Ketones (Negative) Urine Blood (Negative) Urine Nitrite (Negative) Urine Bilirubin (Negative) Urine Urobilinogen (<2.0) mg/dL Ur Leukocyte Esterase (Negative) Stool Occult Blood Negative (Negative) Blood Type Blood Type Recheck Weak D (Du) Antibody Screen Spec Expiration Date 04/15/17 04/15/17 Range/Units 00:35 04:03 WBC (3.8-10.6) k/uL RBC (4.30-5.90) m/uL Hgb (13.0-17.5) gm/dL Hct (39.0-53.0) % MCV (80.0-100.0) fL MCH (25.0-35.0) pg MCHC (31.0-37.0) g/dL RDW (11.5-15.5) % Plt Count (150-450) k/uL Neutrophils % % Lymphocytes % % Monocytes % % Eosinophils % % Basophils % % Neutrophils # (1.3-7.7) k/uL Lymphocytes # (1.0-4.8) k/uL Monocytes # (0-1.0) k/uL Eosinophils # (0-0.7) k/uL Basophils # (0-0.2) k/uL Anisocytosis PT (9.0-12.0) sec INR (<1.2) APTT (22.0-30.0) sec Sodium (137-145) mmol/L Potassium (3.5-5.1) mmol/L Chloride (98-107) mmol/L Carbon Dioxide (22-30) mmol/L Anion Gap mmol/L BUN (9-20) mg/dL Creatinine (0.66-1.25) mg/dL Est GFR (MDRD) Af Amer (>60 ml/min/1.73 sqM) Est GFR (MDRD) Non-Af (>60 ml/min/1.73 sqM) Glucose (74-99) mg/dL Plasma Lactic Acid Shad (0.7-2.0) mmol/L Calcium (8.4-10.2) mg/dL Magnesium (1.6-2.3) mg/dL Total Bilirubin (0.2-1.3) mg/dL AST (17-59) U/L ALT (21-72) U/L Alkaline Phosphatase (38-126) U/L Total Creatine Kinase (55-170) U/L CK-MB (CK-2) (0.0-2.4) ng/mL CK-MB (CK-2) Rel Index Total Protein (6.3-8.2) g/dL Albumin (3.5-5.0) g/dL Lipase (23-300) U/L Urine Color Yellow Urine Appearance Clear (Clear) Urine pH 6.0 (5.0-8.0) Ur Specific [place] >1.050 H (1.001-1.035) Urine Protein Trace H (Negative) Urine Glucose (UA) Negative (Negative) Urine Ketones Negative (Negative) Urine Blood Negative (Negative) Urine Nitrite Negative (Negative) Urine Bilirubin Negative (Negative) Urine Urobilinogen <2.0 (<2.0) mg/dL Ur Leukocyte Esterase Negative (Negative) Stool Occult Blood (Negative) Blood Type AB Negative Blood Type Recheck No Weak D (Du) POS Antibody Screen NEGATIVE Spec Expiration Date 04/18/20172334 Disposition Clinical Impression: Abdominal pain Disposition: HOME SELF-CARE Condition: Good Instructions: Abdominal Pain (ED) Prescriptions: HYDROcodone/APAP 5-325MG [[place] 5-325] 1 tab PO Q6HR PRN #12 tab PRN Reason: Pain Referrals: None,Stated [Primary Care Provider] - 1-2 days Time of Disposition: 03:35
== END 2017-04-15 04:52 | disposition home or self-care (01) ==
LOC: EC 23:37
DX: R10.33 Periumbilical pain (principal); D64.9 Anemia, unspecified; F17.200 Nicotine dependence, unspecified, uncomplicated; Z90.49 Acquired absence of other specified parts of digestive tract; Z88.0 Allergy status to penicillin; Z88.5 Allergy status to narcotic agent; Z88.6 Allergy status to analgesic agent; Z79.899 Other long term (current) drug therapy
CPT/HCPCS: 99284; 96374; 96361; 96372; 36415; 86900; 86901; 80053; 82550; 82553; 83605; 83690; 83735; 85025; 85610; 85730; 86850; 82272; 81003; 74177; J1170; Q9967; C9113

== ENCOUNTER 2017-08-26 18:57 | Emergency (ER) | payer OTHER ==
[2017-08-26] MEDS ORDERED: IPRATROPIUM-ALBUTEROL 3 ML NEB INHALATION STA (19:40)
--- NOTE | 2017-08-26 19:58 | XR ---
EXAMINATION TYPE: XR chest 2V DATE OF EXAM: 08/26/2017 COMPARISON: 12/28/2016 HISTORY: Productive cough and congestion TECHNIQUE: Frontal and lateral views of the chest are obtained. FINDINGS: Coarsened interstitial lung markings are chronic. There is no focal air space opacity, ple ural effusion, or pneumothorax seen. The cardiac silhouette size is within normal limits. The osse ous structures are intact. Focal peribronchial cuffing is seen in the retrocardiac airspace. No focal consolidation on the lateral image in the retrocardiac airspace. Pulmonary hyperinflation and biapic al lucency as well as increased anterior posterior diameter chest on the lateral image relate to unde rlying emphysema. Exaggerated thoracic kyphosis and mild multilevel degenerative disease of the thora cic spine are noted. IMPRESSION: Left lower lobe peribronchial cuffing indicating reactive or infectious small airway dis ease. Findings are superimposed upon emphysematous changes.
--- NOTE | 2017-08-26 20:10 | ED ---
URI HPI - General Chief Complaint: Upper Respiratory Infection Stated Complaint: Flu Time Seen by Provider: 08/26/17 19:23 Source: patient Mode of arrival: ambulatory Limitations: no limitations - History of Present Illness Initial Comments: Patient is a 57-year-old male presenting to the emergency department for cough. He states that this is been going on for 2 weeks and he has had an episode of posttussive emesis but no other nausea/vomiting/diarrhea. He has tried Mucinex as well as DayQuil which did help her symptoms but then the symptoms came back. Denies any chest pain or shortness of breath but admits to chills. He also states that he does smoke but has never been diagnosed with emphysema or COPD. - Related Data Previous Rx's Medication Instructions Recorded Albuterol Inhaler [Ventolin Hfa 1 - 2 puff INHALATION Q6HR PRN #1 08/26/17 Inhaler] inhaler Levofloxacin [Levaquin] 750 mg PO DAILY #5 tab 08/26/17 predniSONE 50 mg PO DAILY #5 tablet 08/26/17 Allergies Allergy/AdvReac Type Severity Reaction Status Date / Time Penicillins Allergy Unknown Verified 08/26/17 19:30 Childhood aspirin AdvReac PATIENT Verified 08/26/17 19:30 HAS AN ULCER codeine AdvReac Nausea & Verified 08/26/17 19:30 Vomiting ibuprofen [From Motrin] AdvReac PATIENT Verified 08/26/17 19:30 HAS AN ULCER Review of Systems ROS Statement: Those systems with pertinent positive or pertinent negative responses have been documented in the HPI. Constitutional: Negative for fatigue and fever. Positive for chills HENT: Negative for congestion. Respiratory: Negative for chest tightness, shortness of breath and wheezing. Positive for cough Cardiovascular: Negative for chest pain and palpitations. Gastrointestinal: Negative for abdominal pain. Negative for abdominal distention , diarrhea, nausea and vomiting. Genitourinary: Negative for dysuria. Musculoskeletal: Negative for back pain, neck pain and neck stiffness. Skin: Negative for color change. Neurological: Negative for dizziness, speech difficulty, weakness and light- headedness. Psychiatric/Behavioral: Negative for agitation and confusion. The patient is not nervous/anxious. ROS Other: All systems not noted in ROS Statement are negative. Past Medical History Past Medical History: COPD, GI Bleed, Seizure Disorder Additional Past Medical History / Comment(s): migraines, last seizure - 15 yrs ago,anemia with bleeding gastric ulcer in 10/2015 and had a blood transfusion History of Any Multi-Drug Resistant Organisms: None Reported Past Surgical History: Cholecystectomy Additional Past Surgical History / Comment(s): amputation right thumb, skin graft right hand, left testicle removed. Past Anesthesia/Blood Transfusion Reactions: No Reported Reaction Additional Past Anesthesia/Blood Transfusion Reaction / Comment(s): pt has recieved blood transfusion - no reaction Past Psychological History: No Psychological Hx Reported Smoking Status: Current every day smoker Past Alcohol Use History: None Reported Past Drug Use History: None Reported - Past Family History Mother History Unknown: Yes Family Medical History: Myocardial Infarction ([place]) Father History Unknown: Yes Family Medical History: Myocardial Infarction ([place]) General Exam - General Exam Comments Initial Comments: Physical Exam Constitutional: He is oriented to person, place, and time. He appears well- developed and well-nourished. No distress. HENT: Head: Normocephalic and atraumatic. Eyes: EOM are normal. Neck: Normal range of motion. Neck supple. Cardiovascular: Normal rate, regular rhythm, S1 normal, S2 normal and normal heart sounds. Exam reveals no gallop and no friction rub. No murmur heard. Pulmonary/Chest: Effort normal and breath sounds normal. No tachypnea and no bradypnea. No respiratory distress. He has no wheezes. He has no rales. Abdominal: Soft. Bowel sounds are normal. He exhibits no shifting dullness, no distension, no pulsatile liver, no fluid wave, no abdominal bruit and no ascites. There is no tenderness. There is no rigidity, no rebound, no guarding, no tenderness at McBurney's point and negative Engle's sign. Genitourinary: Rectal exam shows no external hemorrhoid, no internal hemorrhoid , no fissure, no mass and no tenderness. Prostate is not tender. Musculoskeletal: Normal range of motion. Neurological: He is alert and oriented to person, place, and time. No cranial nerve deficit. Skin: Skin is warm and dry. No rash noted. He is not diaphoretic. No erythema. No pallor. Psychiatric: He has a normal mood and affect. His behavior is normal. Thought content normal. Limitations: no limitations Course Vital Signs 08/26/17 08/26/17 08/26/17 19:13 20:10 20:20 Temperature 97.6 F Pulse Rate 88 90 88 Respiratory 16 Rate Blood Pressure 184/87 O2 Sat by Pulse 96 Oximetry 08/26/17 20:55 Temperature 98.6 F Pulse Rate 80 Respiratory 18 Rate Blood Pressure 136/78 O2 Sat by Pulse 98 Oximetry Medical Decision Making - Medical Decision Making Patient was given breathing treatments and stated that his symptoms were improved. Chest x-ray showed no evidence of acute infiltrate. It is felt that this is likely chronic bronchitis and/or a viral upper respiratory infection. Nonetheless, because the patient likely has underlying emphysema or COPD, he'll be treated empirically with Levaquin. He is also given Solu-Medrol as well as a prescription for prednisone for him to start tomorrow. Additionally, he is given a prescription for albuterol and advised that he should follow up with his primary care doctor within the next few days. Before discharge, he was reevaluated and noted to be resting in bed comfortably in no acute distress. Explained all labs and diagnostic test results and that we will discharge the patient home and patient is to follow up with PCP in 1-2 days and return to the ED if symptoms worsen. Pt is agreeable to plan. - Lab Data Lab Results 08/26/17 Range/Units 20:00 Influenza Type A RNA Not Detected (Not Detectd) Influenza Type B (PCR) Not Detected (Not Detectd) Disposition Clinical Impression: Bronchitis Disposition: HOME SELF-CARE Condition: Good Instructions: Acute Bronchitis (ED) Prescriptions: Albuterol Inhaler [Ventolin Hfa Inhaler] 1 - 2 puff INHALATION Q6HR PRN #1 inhaler PRN Reason: Shortness Of Breath Or Wheezing Levofloxacin [Levaquin] 750 mg PO DAILY #5 tab predniSONE 50 mg PO DAILY #5 tablet Referrals: None,Stated [Primary Care Provider] - 1-2 days Time of Disposition: 20:48
[2017-08-26] MEDS ORDERED: methylPREDNISolone SOD SUCCI 125 MG/2 ML VIAL IM ONE (20:42)
[2017-08-26 20:55] VITALS: BP 136/78; PULSE 80; RESP 18; TEMP 98.6
== END 2017-08-26 20:55 | disposition home or self-care (01) ==
LOC: EC 18:57
DX: J40 Bronchitis, not specified as acute or chronic (principal); F17.200 Nicotine dependence, unspecified, uncomplicated; Z88.0 Allergy status to penicillin; Z88.6 Allergy status to analgesic agent; Z88.5 Allergy status to narcotic agent
CPT/HCPCS: 99284; 96372; 94640; 87502; 71046; J2930

== ENCOUNTER 2018-03-26 07:01 | Emergency (ER) | payer OTHER ==
[2018-03-26 07:07] VITALS: RESP 18
[2018-03-26] MEDS ORDERED: PROPARACAINE 0.5% OPHTH DROPS 15 ML BTL RIGHT EYE STA (07:13)
--- NOTE | 2018-03-26 07:30 | ED ---
General Adult HPI - General Chief complaint: ENT Stated complaint: Eye Swelling Time Seen by Provider: 03/26/18 07:09 Source: patient, RN notes reviewed Mode of arrival: ambulatory Limitations: no limitations - History of Present Illness Initial comments: Patient's a 58-year-old male presents emergency room today with a chief complaint of some swelling above the right side. Patient states that he noticed some mild swelling yesterday but today woke up with increased swelling difficult time seeing out of the eye due to swelling. Patient states he was swimming 2 days ago. He states that he used new pillow last night but was not brand-new. He denies any other new contacts. He denies any medications. Patient states there had similar reaction in the past. He admits to some blurry type vision coming from the right eye. Denies any other complaints. Patient denies any fever or chills, cough, congestion, chest pain, back pain or abdominal pain. - Related Data Previous Rx's Medication Instructions Recorded Albuterol Inhaler [Ventolin Hfa 1 - 2 puff INHALATION Q6HR PRN #1 08/26/17 Inhaler] inhaler Levofloxacin [Levaquin] 750 mg PO DAILY #5 tab 08/26/17 predniSONE 50 mg PO DAILY #5 tablet 08/26/17 Cephalexin [Keflex] 500 mg PO Q12HR 10 Days cap 03/26/18 Tobramycin 0.3% Ophth Oint [Tobrex 1 applic RIGHT EYE TID 7 Days gm 03/26/18 0.3% Ophth Oint] diphenhydrAMINE [Benadryl] 1 - 2 tab PO Q6HR PRN #30 capsule 03/26/18 predniSONE 50 mg PO DAILY #5 tab 03/26/18 Allergies Allergy/AdvReac Type Severity Reaction Status Date / Time Penicillins Allergy Unknown Verified 03/26/18 07:07 Childhood aspirin AdvReac PATIENT Verified 03/26/18 07:07 HAS AN ULCER codeine AdvReac Nausea & Verified 03/26/18 07:07 Vomiting ibuprofen [From Motrin] AdvReac PATIENT Verified 03/26/18 07:07 HAS AN ULCER Review of Systems ROS Statement: Those systems with pertinent positive or pertinent negative responses have been documented in the HPI. ROS Other: All systems not noted in ROS Statement are negative. Past Medical History Past Medical History: COPD, GI Bleed, Seizure Disorder Additional Past Medical History / Comment(s): migraines, last seizure - 15 yrs ago,anemia with bleeding gastric ulcer in 10/2015 and had a blood transfusion History of Any Multi-Drug Resistant Organisms: None Reported Past Surgical History: Cholecystectomy Additional Past Surgical History / Comment(s): amputation right thumb, skin graft right hand, left testicle removed. Past Anesthesia/Blood Transfusion Reactions: No Reported Reaction Additional Past Anesthesia/Blood Transfusion Reaction / Comment(s): pt has recieved blood transfusion - no reaction Past Psychological History: No Psychological Hx Reported Smoking Status: Current every day smoker Past Alcohol Use History: Rare Past Drug Use History: None Reported - Past Family History Mother History Unknown: Yes Family Medical History: Myocardial Infarction ([place]) Father History Unknown: Yes Family Medical History: Myocardial Infarction ([place]) General Exam - General Exam Comments Initial Comments: General: The patient is awake and alert, in no distress, and does not appear acutely ill. Eye: Pupils are equal, round and reactive to light, extra-ocular movements are intact. No nystagmus. There is normal conjunctiva bilaterally. No signs of icterus. Mild swelling to the upper eyelid on the right. Ears, nose, mouth and throat: There are moist mucous membranes and no oral lesions. Neck: The neck is supple, there is no tenderness or JVD. Musculoskeletal: Normal ROM, no tenderness. Strength 5/5. Sensation intact. Pulses equal bilaterally 2+. Neurological: A&O x 3. CN II-XII intact, There are no obvious motor or sensory deficits. Coordination appears grossly intact. Speech is normal. Skin: Skin is warm and dry and no rashes or lesions are noted. Psychiatric: Cooperative, appropriate mood & affect, normal judgment. Limitations: no limitations Course Vital Signs 03/26/18 07:04 Temperature 98.1 F Pulse Rate 88 Respiratory 18 Rate Blood Pressure 141/96 O2 Sat by Pulse 98 Oximetry Medical Decision Making - Medical Decision Making Patient's pressure in the right eye was 17. Patient's right eye was stained with fluorescein and proparacaine was used which did relieve some of the burning sensation. Small corneal abrasion to the lateral aspect possibly from rubbing his eye is seen. No other large uptake. Patient placed on antibiotic drop also be treated for possible ALLERGIC reaction to steroids and Benadryl. He is advised that if symptoms are not improving later in the day to begin a oral antibiotic to cover for possible bacterial infection. He is advised that if symptoms increase or worsen to return here to the emergency room for further evaluation Disposition Clinical Impression: Eyelid edema Disposition: HOME SELF-CARE Condition: Good Instructions: General Allergic Reaction (ED) Additional Instructions: Please use eyedrops as prescribed. Please use Benadryl one to 2 tabs every 6 hours along with steroids as prescribed. If symptoms are not improving please begin oral antibiotic. Please follow-up family doctor over the next 2 days return here to the emergency room symptoms increase or worsen. Prescriptions: Cephalexin [Keflex] 500 mg PO Q12HR 10 Days cap diphenhydrAMINE [Benadryl] 1 - 2 tab PO Q6HR PRN #30 capsule PRN Reason: Allergic Reaction predniSONE 50 mg PO DAILY #5 tab Tobramycin 0.3% Ophth Oint [Tobrex 0.3% Ophth Oint] 1 applic RIGHT EYE TID 7 Days gm Is patient prescribed a controlled substance at d/c from ED?: No Referrals: None,Stated [Primary Care Provider] - 1-2 days Time of Disposition: 07:33
[2018-03-26 07:45] VITALS: BP 147/94; PULSE 81; TEMP 97.9
== END 2018-03-26 07:45 | disposition home or self-care (01) ==
LOC: EC 07:01
DX: H02.841 Edema of right upper eyelid (principal); S05.01XA Injury of conjunctiva and corneal abrasion without foreign body, right eye, initial encounter; F17.200 Nicotine dependence, unspecified, uncomplicated; Z89.011 Acquired absence of right thumb; Z98.890 Other specified postprocedural states; Z88.0 Allergy status to penicillin; Z88.5 Allergy status to narcotic agent; Z88.6 Allergy status to analgesic agent; X58.XXXA Exposure to other specified factors, initial encounter
CPT/HCPCS: 99283

== ENCOUNTER 2018-05-20 07:21 | Emergency (ER) | payer OTHER ==
[2018-05-20 07:28] VITALS: BP 159/101; PULSE 89; RESP 16; TEMP 98.3
--- NOTE | 2018-05-20 07:49 | ED ---
General Adult HPI - General Chief complaint: Extremity Injury, Lower Stated complaint: Lt Knee Pain, Fall Time Seen by Provider: 05/20/18 07:38 Source: patient, RN notes reviewed Mode of arrival: ambulatory Limitations: no limitations - History of Present Illness Initial comments: Patient's a 58-year-old male presented to the emergency room today with a chief complaint of an injury to left knee. He does admit that he was walking downstairs when it gave out. He states he did fall down onto it. Admits to fevers to the medial aspect. Admits to pain locally in this area. This does not that it's worse with flexion. He denies any other injuries or complaints. Patient denies any recent fever, chills, shortness of breath, chest pain, back pain, abdominal pain, nausea or vomiting, numbness or tingling, headaches or visual changes, or any other complaints. - Related Data Home Medications Medication Instructions Recorded Confirmed No Known Home Medications 05/20/18 05/20/18 Allergies Allergy/AdvReac Type Severity Reaction Status Date / Time Penicillins Allergy Unknown Verified 05/20/18 07:51 Childhood aspirin AdvReac PATIENT Verified 05/20/18 07:51 HAS AN ULCER codeine AdvReac Nausea & Verified 05/20/18 07:51 Vomiting ibuprofen [From Motrin] AdvReac PATIENT Verified 05/20/18 07:51 HAS AN ULCER Review of Systems ROS Statement: Those systems with pertinent positive or pertinent negative responses have been documented in the HPI. ROS Other: All systems not noted in ROS Statement are negative. Past Medical History Past Medical History: COPD, GI Bleed, Seizure Disorder Additional Past Medical History / Comment(s): migraines, last seizure - 15 yrs ago,anemia with bleeding gastric ulcer in 10/2015 and had a blood transfusion History of Any Multi-Drug Resistant Organisms: None Reported Past Surgical History: Cholecystectomy Additional Past Surgical History / Comment(s): amputation right thumb, skin graft right hand, left testicle removed. Past Anesthesia/Blood Transfusion Reactions: No Reported Reaction Additional Past Anesthesia/Blood Transfusion Reaction / Comment(s): pt has recieved blood transfusion - no reaction Past Psychological History: No Psychological Hx Reported Smoking Status: Current every day smoker Past Alcohol Use History: Rare Past Drug Use History: None Reported - Past Family History Mother History Unknown: Yes Family Medical History: Myocardial Infarction ([place]) Father History Unknown: Yes Family Medical History: Myocardial Infarction ([place]) General Exam - General Exam Comments Initial Comments: General: The patient is awake and alert, in no distress, and does not appear acutely ill. Neck: The neck is supple, there is no tenderness or JVD. Musculoskeletal: Patient does have small bruise to the medial aspect of the left knee. Shows limited range of motion with flexion -10-15 due to pain. Patient is able forward extend. He does have tenderness over the medial aspect on palpation. There is no other bony tenderness to the left hip, left ankle. Pedal pulses 2+. Sensations are intact. Neurological: A&O x 3. CN II-XII intact, There are no obvious motor or sensory deficits. Coordination appears grossly intact. Speech is normal. Skin: Skin is warm and dry and no rashes or lesions are noted. Psychiatric: Normal mood and affect. Limitations: no limitations Course Vital Signs 05/20/18 07:25 Temperature 98.3 F Pulse Rate 89 Respiratory 16 Rate Blood Pressure 159/101 O2 Sat by Pulse 97 Oximetry Medical Decision Making - Medical Decision Making X-ray reviewed are negative for any acute fracture dislocation. Results were discussed with patient. Patient advised ice elevate the affected area. Given knee immobilizer for stability. Advised following up with orthopedics over the next 2 days. Disposition Clinical Impression: Knee injury Disposition: HOME SELF-CARE Condition: Good Instructions: Knee Pain (ED) Additional Instructions: Please follow-up orthopedics over the next 2 days. Please use knee immobilizer up and moving around. Please return to the emergency room symptoms increase or worsen. Is patient prescribed a controlled substance at d/c from ED?: No Referrals: None,Stated [Primary Care Provider] - 1-2 days German Guaman MD [STAFF PHYSICIAN] - 1-2 days Time of Disposition: 08:16
--- NOTE | 2018-05-20 08:03 | XR ---
EXAMINATION TYPE: XR knee complete LT DATE OF EXAM: 05/20/2018 CLINICAL HISTORY: Fall with left knee pain TECHNIQUE: Three views of the left knee are obtained. COMPARISON: 07/22/2017 FINDINGS: There is no acute fracture/dislocation evident in left knee. The tri-compartment joint sp aces appear within normal limits other than very mild medial compartment joint space narrowing and ti bial plateau sclerosis. The overlying soft tissue appears unremarkable. IMPRESSION: There is no acute fracture or dislocation in the left knee. Mild medial compartment arth ropathy.
== END 2018-05-20 08:39 | disposition home or self-care (01) ==
LOC: EC 07:21
DX: S89.92XA Unspecified injury of left lower leg, initial encounter (principal); F17.200 Nicotine dependence, unspecified, uncomplicated; Z88.0 Allergy status to penicillin; Z88.5 Allergy status to narcotic agent; Z88.6 Allergy status to analgesic agent; W10.9XXA Fall (on) (from) unspecified stairs and steps, initial encounter; Y93.01 Activity, walking, marching and hiking
CPT/HCPCS: 73562; 99283; L1830 ×2

== ENCOUNTER 2018-07-11 06:56 | Emergency (ER) | payer OTHER ==
[2018-07-11 07:02] VITALS: RESP 18; TEMP 98.4
[2018-07-11] MEDS ORDERED: ORPHENADRINE 30 MG/ML 2 ML VIAL IM STA (07:25)
--- NOTE | 2018-07-11 07:27 | ED ---
General Adult HPI - General Chief complaint: Extremity Problem,Nontraumatic Stated complaint: hip pain Time Seen by Provider: 07/11/18 07:08 Source: patient, RN notes reviewed, old records reviewed Mode of arrival: ambulatory - History of Present Illness Initial comments: Adam is a 58-year-old male presents emergency department today with chief complaint of left hip pain radiating down his leg. Patient ports that he was riding in a car getting ready to go to work. Patient reports that he ration his pocket and twisted and felt a sudden sharp pain within his left hip rating down his leg. Patient reports he has history of right hip pain and right leg sciatica. He states he reports that his left hip and leg pain feels similar to his previous sciatica flare. Patient states that he has had no saddle anesthesias. Denies any abdominal pain, fevers or chills. No falls or recent trauma. 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.Patient denies any recent fever, chills, shortness of breath, chest pain, abdominal pain, nausea vomiting, numbness or tingling, dysuria or hematuria, constipation or diarrhea, headaches or visual changes, or any other current symptoms - Related Data Previous Rx's Medication Instructions Recorded Acetaminophen Tab [Tylenol Tab] 650 mg PO Q6H #30 tablet 07/11/18 Cyclobenzaprine [Flexeril] 10 mg PO TID #12 tab 07/11/18 Dexamethasone 0.75 mg PO DAILY #12 tab 07/11/18 Allergies Allergy/AdvReac Type Severity Reaction Status Date / Time Penicillins Allergy Unknown Verified 05/20/18 07:51 Childhood aspirin AdvReac PATIENT Verified 05/20/18 07:51 HAS AN ULCER codeine AdvReac Nausea & Verified 05/20/18 07:51 Vomiting ibuprofen [From Motrin] AdvReac PATIENT Verified 05/20/18 07:51 HAS AN ULCER Review of Systems ROS Statement: Those systems with pertinent positive or pertinent negative responses have been documented in the HPI. ROS Other: All systems not noted in ROS Statement are negative. Past Medical History Past Medical History: COPD, GI Bleed, Seizure Disorder Additional Past Medical History / Comment(s): migraines, last seizure - 15 yrs ago,anemia with bleeding gastric ulcer in 10/2015 and had a blood transfusion History of Any Multi-Drug Resistant Organisms: None Reported Past Surgical History: Cholecystectomy Additional Past Surgical History / Comment(s): amputation right thumb, skin graft right hand, left testicle removed. Past Anesthesia/Blood Transfusion Reactions: No Reported Reaction Additional Past Anesthesia/Blood Transfusion Reaction / Comment(s): pt has recieved blood transfusion - no reaction Past Psychological History: No Psychological Hx Reported Smoking Status: Current every day smoker Past Alcohol Use History: Rare Past Drug Use History: None Reported - Past Family History Mother History Unknown: Yes Family Medical History: Myocardial Infarction ([place]) Father History Unknown: Yes Family Medical History: Myocardial Infarction ([place]) General Exam - General Exam Comments Initial Comments: Patient is a 58-year-old male. Alert and oriented. Patient appears in no acute distress. General: Well appearing, well nourished, in no distress. Oriented x 3, normal mood and affect . Ambulating without difficulty. Skin: Good turgor, no rash, unusual bruising or prominent lesions Hair: Normal texture and distribution. HEENT: Head: Normocephalic, atraumatic, no visible or palpable masses, depressions, or scaring. Eyes: Visual acuity intact, conjunctiva clear, sclera non-icteric, EOM intact, PERRL. Neck: Supple, without lesions, bruits, or adenopathy, thyroid non-enlarged and non-tender Heart: No cardiomegaly or thrills; regular rate and rhythm, no murmur or gallop Lungs: Clear to auscultation and percussion Abdomen: Bowel sounds normal, no tenderness, organomegaly, masses, or hernia Back: Spine normal without deformity or tenderness, Patient has tenderness over the left sciatic notch. Positive straight leg test. Normal pulses distally. Extremities: No amputations or deformities, cyanosis, edema or varicosities, peripheral pulses intact Musculoskeletal: Normal gait and station. No misalignment, asymmetry, crepitation, defects, tenderness, masses, effusions, decreased range of motion, instability, atrophy or abnormal strength or tone in the head, neck, spine, ribs , pelvis or extremities. Neurologic: CN 2-12 normal. Sensation to pain, touch, and proprioception normal. DTRs normal in upper and lower extremities. No pathologic reflexes. Psychiatric: Oriented X3, intact recent and remote memory, judgment and insight , normal mood and affect. Course Vital Signs 07/11/18 06:58 Temperature 98.4 F Pulse Rate 79 Respiratory 18 Rate Blood Pressure 149/87 O2 Sat by Pulse 18 L Oximetry Medical Decision Making - Medical Decision Making 4-year-old male presents today complaining of left hip pain rated down the leg. 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 No falls. Normal pulses distally. Positive straight leg test. Patient was given IM Norflex. ALLERGY to anti-inflammatory medications and Profen. Therefore he did not do Toradol. Patient had x-rays of lumbar spine and pelvis. These were completed and negative for any acute process. Some disc space narrowing at L4- L5. Facet arthropathy noted. Patient was given a muscle relaxer. Discussed discharge her with anti-inflammatories and close follow-up with primary care physician. All questions answered return parameters were discussed. Given a note for work. - Radiology Data Radiology results: report reviewed No acute fracture dislocation of the pelvis. 5 for to arrange redemonstrated. Satisfactory alignment. Vertebral heights remain normal limits. Mild disc space narrowing at L4-L5. Some facet arthropathy of the lower lumbar spine is noted. Cholecystectomy clips are noted overlying soft tissue. Disposition Clinical Impression: Sciatica of left side Disposition: HOME SELF-CARE Condition: Good Instructions: Hip Pain (ED), Sciatica (ED) Additional Instructions: Patient is to rest, apply heat and ice over the area for 20 minutes every few hours. Patient should do passive stretching. Follow up with primary care physician. Take the medications as prescribed. Prescriptions: Acetaminophen Tab [Tylenol Tab] 650 mg PO Q6H #30 tablet Cyclobenzaprine [Flexeril] 10 mg PO TID #12 tab Dexamethasone 0.75 mg PO DAILY #12 tab Is patient prescribed a controlled substance at d/c from ED?: No Referrals: None,Stated [Primary Care Provider] - 1-2 days Time of Disposition: 08:05
--- NOTE | 2018-07-11 07:57 | XR ---
EXAMINATION TYPE: XR pelvis AP view DATE OF EXAM: 07/11/2018 CLINICAL HISTORY: Pelvic pain after twisting injury. TECHNIQUE: A single AP view of the pelvis is obtained. COMPARISON: CT abdomen and pelvis April 15, 2017. FINDINGS: There is no acute fracture/dislocation evident in the pelvis. Mild to moderate narrowing a t bilateral hip joints with mild spurring and subchondral cystic change is redemonstrated bilaterally . Sacroiliac joints are maintained. Surgical clip is redemonstrated overlying pelvis. Pubic symphysis is not widened. IMPRESSION: There is no acute fracture or dislocation in the pelvis.
--- NOTE | 2018-07-11 07:59 | XR ---
EXAMINATION TYPE: XR lumbar spine 2 or 3V DATE OF EXAM: 07/11/2018 CLINICAL HISTORY: Back pain down left leg after twisting injury today. TECHNIQUE: Frontal and lateral images of the lumbar spine are obtained. COMPARISON: CT abdomen and pelvis April 15, 2017. Lumbar spine x-ray March 15, 2017. FINDINGS: There are 5 lumbar type vertebral bodies redemonstrated. The lumbar spine shows satisfact ory alignment without evidence of acute fracture or dislocation. Vertebral body heights remain within normal limits. There is mild disc space narrowing and anterior spurring L4-L5 level redemonstrated. Some facet arthropathy lower lumbar spine is seen. Cholecystectomy clips are noted overlying soft tis michelle. IMPRESSION: No acute fracture or dislocation is seen in the lumbar spine. Other findings as noted ab ove not significantly changed from prior studies.
[2018-07-11 08:47] VITALS: BP 135/80; PULSE 86
== END 2018-07-11 08:47 | disposition home or self-care (01) ==
LOC: EC 06:56
DX: M54.32 Sciatica, left side (principal); F17.200 Nicotine dependence, unspecified, uncomplicated; Z89.011 Acquired absence of right thumb; Z90.49 Acquired absence of other specified parts of digestive tract; Z98.890 Other specified postprocedural states; Z88.0 Allergy status to penicillin; Z88.5 Allergy status to narcotic agent; Z88.6 Allergy status to analgesic agent; X50.1XXA Overexertion from prolonged static or awkward postures, initial encounter; Y93.89 Activity, other specified
CPT/HCPCS: 72100; 72170; 96372; 99284

== ENCOUNTER 2018-08-31 14:09 | Observation (INO) | payer OTHER ==
[2018-08-31] MEDS ORDERED: SODIUM CHLORIDE 0.9% 1,000 ML IV STA (14:20)
[2018-08-31] MEDS ORDERED: IPRATROPIUM-ALBUTEROL 3 ML NEB INHALATION STA (14:21)
--- NOTE | 2018-08-31 14:42 | ED ---
General Adult HPI - General Chief complaint: Chest Pain Stated complaint: Chest Pain Time Seen by Provider: 08/31/18 14:15 Source: patient, RN notes reviewed Mode of arrival: wheelchair Limitations: no limitations - History of Present Illness Initial comments: Patient's a 58-year-old male presented to the emergency room today with a chief complaint of increased cough congestion and chest pain over the last 3 days. Patient does admit that he was at work he was sent home 2 days ago because of this. He does admit that he's had cough congestion. Patient does admit to sputum production as been yellow in color. He does admit that he's felt pain over the anterior chest wall as well as been sharp in nature. Patient states never had symptoms similar to this in the past. Denies any other complaints at this time. Patient denies any recent fever, chills, back pain, abdominal pain, nausea or vomiting, numbness or tingling, dysuria or hematuria, constipation or diarrhea, headaches or visual changes, or any other complaints. - Related Data Home Medications Medication Instructions Recorded Confirmed No Known Home Medications 08/31/18 08/31/18 Allergies Allergy/AdvReac Type Severity Reaction Status Date / Time Penicillins Allergy Rash/Hives Verified 08/31/18 16:30 aspirin AdvReac PATIENT Verified 08/31/18 16:30 HAS AN ULCER codeine AdvReac Nausea & Verified 08/31/18 16:30 Vomiting ibuprofen [From Motrin] AdvReac PATIENT Verified 08/31/18 16:30 HAS AN ULCER Review of Systems ROS Statement: Those systems with pertinent positive or pertinent negative responses have been documented in the HPI. ROS Other: All systems not noted in ROS Statement are negative. Past Medical History Past Medical History: COPD, GI Bleed, Seizure Disorder Additional Past Medical History / Comment(s): migraines, last seizure - 15 yrs ago History of Any Multi-Drug Resistant Organisms: None Reported Past Surgical History: Cholecystectomy Additional Past Surgical History / Comment(s): amputation right thumb, skin graft right hand, left testicle removed. Past Anesthesia/Blood Transfusion Reactions: No Reported Reaction Additional Past Anesthesia/Blood Transfusion Reaction / Comment(s): pt has recieved blood transfusion - no reaction Past Psychological History: No Psychological Hx Reported Smoking Status: Current every day smoker Past Alcohol Use History: Rare Past Drug Use History: None Reported - Past Family History Mother History Unknown: Yes Family Medical History: Myocardial Infarction ([place]) Father History Unknown: Yes Family Medical History: Myocardial Infarction ([place]) General Exam - General Exam Comments Initial Comments: General: The patient is awake and alert, in no distress, and does not appear acutely ill. Eye: There is normal conjunctiva bilaterally. No signs of icterus. Ears, nose, mouth and throat: There are moist mucous membranes and no oral lesions. Neck: The neck is supple Cardiovascular: There is a regular rate and rhythm. No murmur, rub or gallop is appreciated. Respiratory: Lungs sounds diminished bilaterally. respirations are non-labored , breath sounds are equal. No stridor, rales, or rhonchi. Gastrointestinal: Abdomen soft nontender. Musculoskeletal: Normal ROM, no tenderness. Radial pulses equal bilaterally 2+ . Neurological: A&O x 3. CN II-XII intact, There are no obvious motor or sensory deficits. Coordination appears grossly intact. Speech is normal. Skin: Skin is warm and dry and no rashes or lesions are noted. Psychiatric: Cooperative, appropriate mood & affect, normal judgment. Limitations: no limitations Course Vital Signs 08/31/18 08/31/18 08/31/18 14:12 14:45 14:52 Temperature 98.1 F Pulse Rate 97 82 80 Respiratory 18 Rate Blood Pressure 143/82 O2 Sat by Pulse 96 Oximetry 08/31/18 15:00 Temperature Pulse Rate 90 Respiratory 16 Rate Blood Pressure 131/82 O2 Sat by Pulse 95 Oximetry Medical Decision Making - Medical Decision Making Patient reexamined at this time shows no signs of distress. States still experiencing some chest discomfort. The emergency room. Lung sounds diminished. Patient states breathing treatment had little improvement. Chest x -ray was unremarkable. Patient did have elevated d-dimer and a CT angiogram was performed of the chest. There is no evidence of PE. There is multifocal lateral ground glass patient is an. Similar findings were seen on previous CT of the abdo men and pelvis on 04/15/2017. Case discussed with attending physician Dr. Jacob who did discuss the Case with admitting Dr Russell. - Lab Data Result diagrams: 08/31/18 14:30 08/31/18 14:30 Lab Results 08/31/18 08/31/18 08/31/18 Range/Units 14:30 14:30 14:30 WBC 7.9 (3.8-10.6) k/uL RBC 4.82 (4.30-5.90) m/uL Hgb 12.2 L (13.0-17.5) gm/dL Hct 39.8 (39.0-53.0) % MCV 82.7 (80.0-100.0) fL MCH 25.3 (25.0-35.0) pg MCHC 30.5 L (31.0-37.0) g/dL RDW 16.8 H (11.5-15.5) % Plt Count 275 (150-450) k/uL Neutrophils % 77 % Lymphocytes % 9 % Monocytes % 9 % Eosinophils % 2 % Basophils % 1 % Neutrophils # 6.1 (1.3-7.7) k/uL Lymphocytes # 0.7 L (1.0-4.8) k/uL Monocytes # 0.7 (0-1.0) k/uL Eosinophils # 0.2 (0-0.7) k/uL Basophils # 0.0 (0-0.2) k/uL Hypochromasia Slight Anisocytosis Slight PT (9.0-12.0) sec INR (<1.2) APTT (22.0-30.0) sec D-Dimer (<0.60) mg/L FEU Sodium 137 (137-145) mmol/L Potassium 3.7 (3.5-5.1) mmol/L Chloride 101 (98-107) mmol/L Carbon Dioxide 27 (22-30) mmol/L Anion Gap 9 mmol/L BUN 9 (9-20) mg/dL Creatinine 0.81 (0.66-1.25) mg/dL Est GFR (CKD-EPI)AfAm >90 (>60 ml/min/1.73 sqM) Est GFR (CKD-EPI)NonAf >90 (>60 ml/min/1.73 sqM) Glucose 144 H (74-99) mg/dL Calcium 9.2 (8.4-10.2) mg/dL Magnesium 1.8 (1.6-2.3) mg/dL Total Bilirubin 0.7 (0.2-1.3) mg/dL AST 23 (17-59) U/L ALT 31 (21-72) U/L Alkaline Phosphatase 73 (38-126) U/L Total Creatine Kinase 280 H (55-170) U/L CK-MB (CK-2) 1.0 (0.0-2.4) ng/mL CK-MB (CK-2) Rel Index 0.4 Troponin I <0.012 (0.000-0.034) ng/mL Total Protein 6.9 (6.3-8.2) g/dL Albumin 3.7 (3.5-5.0) g/dL 08/31/18 08/31/18 Range/Units 14:30 14:30 WBC (3.8-10.6) k/uL RBC (4.30-5.90) m/uL Hgb (13.0-17.5) gm/dL Hct (39.0-53.0) % MCV (80.0-100.0) fL MCH (25.0-35.0) pg MCHC (31.0-37.0) g/dL RDW (11.5-15.5) % Plt Count (150-450) k/uL Neutrophils % % Lymphocytes % % Monocytes % % Eosinophils % % Basophils % % Neutrophils # (1.3-7.7) k/uL Lymphocytes # (1.0-4.8) k/uL Monocytes # (0-1.0) k/uL Eosinophils # (0-0.7) k/uL Basophils # (0-0.2) k/uL Hypochromasia Anisocytosis PT 11.2 (9.0-12.0) sec INR 1.1 (<1.2) APTT 29.0 (22.0-30.0) sec D-Dimer 0.65 H (<0.60) mg/L FEU Sodium (137-145) mmol/L Potassium (3.5-5.1) mmol/L Chloride (98-107) mmol/L Carbon Dioxide (22-30) mmol/L Anion Gap mmol/L BUN (9-20) mg/dL Creatinine (0.66-1.25) mg/dL Est GFR (CKD-EPI)AfAm (>60 ml/min/1.73 sqM) Est GFR (CKD-EPI)NonAf (>60 ml/min/1.73 sqM) Glucose (74-99) mg/dL Calcium (8.4-10.2) mg/dL Magnesium (1.6-2.3) mg/dL Total Bilirubin (0.2-1.3) mg/dL AST (17-59) U/L ALT (21-72) U/L Alkaline Phosphatase (38-126) U/L Total Creatine Kinase (55-170) U/L CK-MB (CK-2) (0.0-2.4) ng/mL CK-MB (CK-2) Rel Index Troponin I (0.000-0.034) ng/mL Total Protein (6.3-8.2) g/dL Albumin (3.5-5.0) g/dL Disposition Clinical Impression: Chest pain Disposition: ADMITTED IP TO THIS HOSP Condition: Stable Is patient prescribed a controlled substance at d/c from ED?: No Referrals: None,Stated [Primary Care Provider] - 1-2 days
[2018-08-31 14:46] LABS: Anisocytosis Slight; Basophils % (A) 1 %; Eosinophils # (A) 0.2 k/uL (0-0.7); Eosinophils % (A) 2 %; HCT 39.8 % (39.0-53.0); HGB 12.2 gm/dL (13.0-17.5); Hypochromasia Slight; Lymphocytes # (A) 0.7 k/uL (1.0-4.8); Lymphocytes % (A) 9 %; MCH 25.3 pg (25.0-35.0); MCHC 30.5 g/dL (31.0-37.0); MCV 82.7 fL (80.0-100.0); Mean Platelet Volume 6.4; Monocytes # (A) 0.7 k/uL (0-1.0); Monocytes % (A) 9 %; Neutrophils # (A) 6.1 k/uL (1.3-7.7); Neutrophils % (A) 77 %; Platelet Count 275 k/uL (150-450); RBC 4.82 m/uL (4.30-5.90); RDW 16.8 % (11.5-15.5); WBC 7.9 k/uL (3.8-10.6)
[2018-08-31] MEDS ORDERED: NITROGLYCERIN SL TABS 0.4 MG TAB SUBLINGUAL PRN (14:58)
[2018-08-31] MEDS ORDERED: ASPIRIN 81 MG PO STA (14:58)
[2018-08-31 15:01] LABS: ALT 31 U/L (21-72); AST 23 U/L (17-59); Albumin 3.7 g/dL (3.5-5.0); Alkaline Phosphatase 73 U/L (38-126); Anion Gap 9 mmol/L; Blood Urea Nitrogen 9 mg/dL (9-20); Calcium 9.2 mg/dL (8.4-10.2); Carbon Dioxide 27 mmol/L (22-30); Chloride 101 mmol/L (98-107); Glucose 144 mg/dL (74-99); Magnesium 1.8 mg/dL (1.6-2.3); Potassium 3.7 mmol/L (3.5-5.1); Sodium 137 mmol/L (137-145); Total Bilirubin 0.7 mg/dL (0.2-1.3); Total Protein 6.9 g/dL (6.3-8.2)
[2018-08-31 15:08] LABS: Creatine Kinase 280 U/L (55-170)
[2018-08-31 15:10] LABS: INR 1.1 (<1.2)
[2018-08-31 15:11] LABS: Prothrombin Time 11.2 sec (9.0-12.0)
[2018-08-31 15:22] LABS: Troponin I <0.012 ng/mL (0.000-0.034)
--- NOTE | 2018-08-31 15:34 | XR ---
EXAMINATION TYPE: XR chest 2V DATE OF EXAM: 08/31/2018 COMPARISON: Chest radiograph 08/26/2017 HISTORY: Chest pain TECHNIQUE: Frontal and lateral views of the chest are obtained. FINDINGS: There is no focal air space opacity, pleural effusion, or pneumothorax seen. The cardiac silhouette size is within normal limits. The osseous structures are intact. Surgical clips are seen in the expected location of the gallbladder fossa. IMPRESSION: No acute cardiopulmonary process.
--- NOTE | 2018-08-31 16:10 | CT ---
EXAMINATION TYPE: CT angio chest DATE OF EXAM: 08/31/2018 COMPARISON: NONE HISTORY: CHEST PAIN AND SOB CT DLP: 351.3 mGycm. Automated Exposure Control for Dose Reduction was Utilized. CONTRAST: CTA scan of the thorax is performed with IV Contrast, patient injected with 100 mL of Isovue 370, pul monary embolism protocol. MIP Images are created on CT scanner and reviewed. FINDINGS: LUNGS: Multifocal bilateral tree in bud nodular opacities are seen diffusely. Bibasilar pleural-based blebs are seen with pleural-based scarring. No pleural effusion or pneumothorax. The airway is clear . MEDIASTINUM: There is satisfactory enhancement of the pulmonary artery and its branches, there is no CT evidence for pulmonary embolism. Numerous enlarged subcarinal lymph nodes are seen. The largest me asures up to 1.4 cm in short axis. Additional scattered nonenlarged mediastinal lymph nodes are prese nt. No supraclavicular or axillary adenopathy is present. No cardiomegaly or pericardial effusion is seen. The thoracic aorta without without evidence of aneurysmal dilatation or narrowing. OTHER: Stable size hiatal hernia. Surgical clips are seen in the gallbladder fossa on the sales planning analyst image . Osseous structures are without evidence of acute fracture. There is advanced kyphosis of the midtho racic spine. Vertebral body heights are maintained. A 2 mm nonobstructing left-sided renal calculus i s evident. IMPRESSION: 1. No evidence of a pulmonary embolism. 2. Multifocal bilateral groundglass opacities are seen diffusely. Similar findings are seen in the pa rtially evaluated lower thorax on CT of the abdomen and pelvis from 04/15/2017. Infectious versus infla mmatory etiologies are favored. 3. Enlarged subcarinal lymph nodes with prominent additional mediastinal adenopathy. Etiology is uncl ear. Further investigation is warranted. 4. 2 mm nonobstructing left-sided renal calculus.
[2018-08-31] MEDS ORDERED: SODIUM CHLORIDE 0.9% 1,000 ML IV ONE (16:39)
[2018-08-31] MEDS ORDERED: HEPARIN SODIUM,PORCINE 5,000 UNIT/ML 1 ML VIAL IV ONE (16:39)
[2018-08-31] MEDS ORDERED: HEPARIN SOD,PORK IN 0.45% NACL 25,000 UNIT in 0.45% NACL 1 250ML.BAG IV SCH (16:45)
--- NOTE | 2018-08-31 17:25 | P.HPIM ---
History of Present Illness H&P Date: 08/31/18 The patient is a 58 yo M with a PMH of COPD, seizure disorder, and active smoker presented to the ED for L sided chest pain. The patient notes that over the past 3 days, he has a cough productive of yellow phlegm w/ SOB and a L sided constant chest pain, 6/10, non-radiating, with no alleviating or exacerbating factors, non-pleuritic. He works at a [employer] and was sent home from work on due to his above symptoms. He also sinus congestion of similar duration. He denied fever, chills, LE swelling, calf pain, recent travel, or sick contacts. Also denied abdominal pain, nausea, and vomiting. Patient notes he was diagnosed with COPD several years ago though he doesn't use any inhalers and doesn't have a PMD. Also notes his last seizure was in 2006 and is currently not using any anti-epileptics. In the ED, the patient had a comprehensive workup with CXR unremarkable. EKG showed NSR @ 89 bpm with T-wave flattening in leads I, II, and III with no S-T changes noted. D-dimer was 0.65 with subsequent CTA chest negative for PE and showing pepe ground-glass opacities with an enlarged subcarinal LN. Review of Systems Pertinent positives and negatives as discussed in HPI, a complete review of systems was performed and all other systems are negative. Past Medical History Past Medical History: COPD, GI Bleed, Seizure Disorder Additional Past Medical History / Comment(s): migraines, last seizure - 15 yrs ago History of Any Multi-Drug Resistant Organisms: None Reported Past Surgical History: Cholecystectomy Additional Past Surgical History / Comment(s): amputation right thumb, skin graft right hand, left testicle removed. Past Anesthesia/Blood Transfusion Reactions: No Reported Reaction Additional Past Anesthesia/Blood Transfusion Reaction / Comment(s): pt has recieved blood transfusion - no reaction Past Psychological History: No Psychological Hx Reported Smoking Status: Current every day smoker Past Alcohol Use History: Rare Past Drug Use History: None Reported - Past Family History Mother History Unknown: Yes Family Medical History: Myocardial Infarction ([place]) Father History Unknown: Yes Family Medical History: Myocardial Infarction ([place]) Medications and Allergies Home Medications Medication Instructions Recorded Confirmed Type No Known Home Medications 08/31/18 08/31/18 History Allergies Allergy/AdvReac Type Severity Reaction Status Date / Time Penicillins Allergy Rash/Hives Verified 08/31/18 16:30 aspirin AdvReac PATIENT Verified 08/31/18 16:30 HAS AN ULCER codeine AdvReac Nausea & Verified 08/31/18 16:30 Vomiting ibuprofen [From Motrin] AdvReac PATIENT Verified 08/31/18 16:30 HAS AN ULCER Physical Exam Vitals: Vital Signs Temp Pulse Resp BP Pulse Ox 08/31/18 16:30 76 23 115/66 94 L 08/31/18 16:00 82 33 H 125/68 96 08/31/18 15:00 90 16 131/82 95 08/31/18 14:52 80 08/31/18 14:45 82 08/31/18 14:12 98.1 F 97 18 143/82 96 Intake and Output 08/31/18 08/31/18 08/31/18 06:59 14:59 22:59 Other: Weight 83.461 kg General: [non toxic], [no distress], [appears at stated age], [overweight] Derm: [no unusual rashes/lesions] [no unusual ecchymoses], [warm], [dry] Head: [atraumatic], [normocephalic], [symmetric] Eyes: [EOMI], [no lid lag], [anicteric sclera], [pupils equal round reactive to light] ENT: [Nose and ears atraumatic], [no thrush], [no pharyngeal erythema] Neck: [No thyromegaly], [no cervical lymphadenopathy], [trachea midline], [ supple] Mouth: [no lip lesion], [mucus membranes moist] Cardiovascular: [S1S2 reg], [no murmur], [positive posterior tibial pulse bilateral], [no edema], [capillary refill less than 2 seconds], no chest tenderness on palpation Lungs: [CTA bilateral], mildly decreased air entry pepe, [no rhonchi, no rales] , [no accessory muscle use] Abdominal: [soft], [ nontender to palpation], [no guarding], [no appreciable organomegaly], [normal bowel sounds] Ext: [no gross muscle atrophy], [muscle strength 5 out of 5 in all 4 extremities grossly], [no contractures], Neuro: [ CN II-XII grossly intact], [light touch intact all 4 extremities], [ finger to nose within normal limits], Psych: [Alert], [oriented], [appropriate affect] Results CBC & Chem 7: 08/31/18 14:30 08/31/18 14:30 Labs: Abnormal Lab Results - Last 24 Hours (Table) 08/31/18 08/31/18 08/31/18 Range/Units 14:30 14:30 14:30 Hgb 12.2 L (13.0-17.5) gm/dL MCHC 30.5 L (31.0-37.0) g/dL RDW 16.8 H (11.5-15.5) % Lymphocytes # 0.7 L (1.0-4.8) k/uL D-Dimer (<0.60) mg/L FEU Glucose 144 H (74-99) mg/dL Total Creatine Kinase 280 H (55-170) U/L 08/31/18 Range/Units 14:30 Hgb (13.0-17.5) gm/dL MCHC (31.0-37.0) g/dL RDW (11.5-15.5) % Lymphocytes # (1.0-4.8) k/uL D-Dimer 0.65 H (<0.60) mg/L FEU Glucose (74-99) mg/dL Total Creatine Kinase (55-170) U/L Assessment and Plan Plan: Chest pain, r/o ACS -Cardiology consult -Telemetry monitoring -Trend Troponin and EKG -C/w Aspirin and Heparin infusion Shortness of breath w/ productive cough -Likely mild COPD exacerbation in setting of viral URI -Duonebs, Symbicort, Singulair, Oral Prednisone Tobacco abuse -Counseled on importance of cessation -Nicotine patch Seizure disorder -Off anti-epileptics for 12 years DVT//GI proph -Heparin infusion -No indication for GI proph The patient is admitted with an anticipated less than than 2 midnight stay for evaluation of chest pain. CODE STATUS: Full code Discussed with: Patient Anticipated discharge date: 09/01/[address]: Home A total of 50 minutes was spent on the care of this complex patient more than 50 % of the time was spent in counseling and care coordination.
[2018-08-31] MEDS: NITROGLYCERIN OINT 1 INCH/GM PACKET TOPICAL SCH (18:17)
[2018-08-31] MEDS ORDERED: PNEUMOCOCCAL VACC-PNEUMOVAX 23 25 MCG/0.5 ML VIAL IM ONE (19:02)
[2018-08-31] MEDS ORDERED: INFLUENZA VACCINE (6 MOS+) 60 MCG/0.5 ML SYRINGE IM ONE (19:02)
[2018-08-31] MEDS: IPRATROPIUM-ALBUTEROL 3 ML NEB INHALATION SCH (19:29)
[2018-08-31] MEDS: SYMBICORT 160-4.5 MCG INHALER INHALATION SCH (19:30)
[2018-08-31 21:58] LABS: Creatine Kinase 223 U/L (55-170)
[2018-08-31 22:09] LABS: Creatine Kinase MB 0.9 ng/mL (0.0-2.4); Troponin I <0.012 ng/mL (0.000-0.034)
[2018-09-01] MEDS: NITROGLYCERIN OINT 1 INCH/GM PACKET TOPICAL SCH ×2 (00:12→13:42)
[2018-09-01] MEDS: IPRATROPIUM-ALBUTEROL 3 ML NEB INHALATION SCH ×3 (00:59→11:36)
[2018-09-01 03:04] LABS: Creatine Kinase 199 U/L (55-170)
[2018-09-01 03:17] LABS: Creatine Kinase MB 0.6 ng/mL (0.0-2.4); Troponin I <0.012 ng/mL (0.000-0.034)
[2018-09-01] MEDS ORDERED: ACETAMINOPHEN TAB 325 MG TAB PO PRN ×2 (05:08→09:29)
[2018-09-01] MEDS: SYMBICORT 160-4.5 MCG INHALER INHALATION SCH ×2 (08:13→11:36)
[2018-09-01] MEDS ORDERED: MONTELUKAST 10 MG TAB PO SCH (09:00)
[2018-09-01] MEDS ORDERED: NICOTINE 21MG/24HR PATCH TRANSDERM SCH (09:00)
[2018-09-01] MEDS ORDERED: predniSONE 20 MG TAB PO SCH (09:00)
[2018-09-01] MEDS ORDERED: ASPIRIN 325 MG TAB PO SCH (09:00)
[2018-09-01 09:10] LABS: Cholesterol 90 mg/dL (<200); HDL Cholesterol 20 mg/dL (40-60); LDL Cholesterol,Calculated 45 mg/dL (0-99); Triglycerides 123 mg/dL (<150)
--- NOTE | 2018-09-01 09:36 | P.CRDCN ---
History of Present Illness Consult date: 09/01/18 Chief complaint: Chest pain History of present illness: This is a 58-year-old gentleman with a past medical history significant for smoking as well as history of COPD presented to the hospital complaining of chest discomfort. The patient was in his usual state of health until last its use a when he was at work and started coughing and subsequently started having chest discomfort. The discomfort is a sharp kind of discomfort in the mid of the chest without any radiation and without any associated symptoms. The patient stated that the cough is productive of sputum. 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 No dizziness or lightheadedness. No syncope. The patient does not have any coronary artery disease, diabetes, hypertension, or dyslipidemia. He does have COPD. He states that he continues to smoke but he is working on smoking cessation. The EKG showed sinus rhythm without any ST or T-wave abnormalities. 3 sets of cardiac enzymes were checked and came in to be unremarkable. The patient underwent a stress test in 2016 and that was a stress echo and that came in to be unremarkable. Past Medical History Past Medical History: COPD, GI Bleed, Seizure Disorder Additional Past Medical History / Comment(s): migraines, last seizure - 15 yrs ago History of Any Multi-Drug Resistant Organisms: None Reported Past Surgical History: Cholecystectomy Additional Past Surgical History / Comment(s): amputation right thumb, skin graft right hand, left testicle removed. Past Anesthesia/Blood Transfusion Reactions: No Reported Reaction Additional Past Anesthesia/Blood Transfusion Reaction / Comment(s): pt has recieved blood transfusion - no reaction Past Psychological History: No Psychological Hx Reported Smoking Status: Current every day smoker Past Alcohol Use History: Rare Past Drug Use History: None Reported - Past Family History Mother History Unknown: Yes Family Medical History: Myocardial Infarction ([place]) Father History Unknown: Yes Family Medical History: Myocardial Infarction ([place]) Medications and Allergies Home Medications Medication Instructions Recorded Confirmed Type No Known Home Medications 08/31/18 08/31/18 History Allergies Allergy/AdvReac Type Severity Reaction Status Date / Time Penicillins Allergy Rash/Hives Verified 08/31/18 16:30 aspirin AdvReac PATIENT Verified 08/31/18 16:30 HAS AN ULCER codeine AdvReac Nausea & Verified 08/31/18 16:30 Vomiting ibuprofen [From Motrin] AdvReac PATIENT Verified 08/31/18 16:30 HAS AN ULCER Physical Exam Vitals: Vital Signs Temp Pulse Pulse Resp BP BP Pulse Ox 09/01/18 07:30 100.3 F H 76 18 112/59 95 09/01/18 04:00 98.2 F 92 16 121/70 95 09/01/18 01:03 95 09/01/18 01:01 88 97 08/31/18 23:27 93 15 08/31/18 23:21 98.7 F 93 15 132/69 95 08/31/18 20:00 79 15 08/31/18 19:30 85 95 08/31/18 19:12 97.5 F L 79 15 113/52 95 08/31/18 17:49 78 18 08/31/18 17:16 97.8 F 78 18 137/70 97 08/31/18 16:30 76 23 115/66 94 L 08/31/18 16:00 82 33 H 125/68 96 08/31/18 15:00 90 16 131/82 95 08/31/18 14:52 80 08/31/18 14:45 82 08/31/18 14:12 98.1 F 97 18 143/82 96 Intake and Output 08/31/18 09/01/18 09/01/18 22:59 06:59 14:59 Intake Total 20 98.579 Balance 20 98.579 Intake: IV 20 20 Invasive Line 1 20 20 Intake, IV Titration 78.579 Amount Heparin Sod,Pork in 0.45% 78.579 NaCl 25,000 unit In 0.45 % NaCl 1 250ml.bag @ 12 UNITS/KG/HR 10.01 mls/hr IV .Q24H [facility] Rx#: [id number] Other: Voiding Method Toilet Toilet # Voids 2 Weight 80.2 kg - Constitutional General appearance: no acute distress - Respiratory Respiratory: bilateral: diminished - Cardiovascular Rhythm: regular Heart sounds: normal: S1, S2 Results 08/31/18 14:30 08/31/18 14:30 Cardiac Enzymes 08/31/18 08/31/18 08/31/18 Range/Units 14:30 14:30 21:05 AST 23 (17-59) U/L CK-MB (CK-2) 1.0 0.9 (0.0-2.4) ng/mL Troponin I <0.012 <0.012 (0.000-0.034) ng/mL 09/01/18 Range/Units 02:33 AST (17-59) U/L CK-MB (CK-2) 0.6 (0.0-2.4) ng/mL Troponin I <0.012 (0.000-0.034) ng/mL Coagulation 08/31/18 08/31/18 09/01/18 Range/Units 14:30 23:53 08:31 PT 11.2 (9.0-12.0) sec APTT 29.0 36.3 H 44.7 H (22.0-30.0) sec Lipids 09/01/18 Range/Units 08:31 Triglycerides 123 (<150) mg/dL Cholesterol 90 (<200) mg/dL HDL Cholesterol 20 L (40-60) mg/dL CBC 08/31/18 Range/Units 14:30 WBC 7.9 (3.8-10.6) k/uL RBC 4.82 (4.30-5.90) m/uL Hgb 12.2 L (13.0-17.5) gm/dL Hct 39.8 (39.0-53.0) % Plt Count 275 (150-450) k/uL Comprehensive Metabolic Panel 08/31/18 Range/Units 14:30 Sodium 137 (137-145) mmol/L Potassium 3.7 (3.5-5.1) mmol/L Chloride 101 (98-107) mmol/L Carbon Dioxide 27 (22-30) mmol/L BUN 9 (9-20) mg/dL Creatinine 0.81 (0.66-1.25) mg/dL Glucose 144 H (74-99) mg/dL Calcium 9.2 (8.4-10.2) mg/dL AST 23 (17-59) U/L ALT 31 (21-72) U/L Alkaline Phosphatase 73 (38-126) U/L Total Protein 6.9 (6.3-8.2) g/dL Albumin 3.7 (3.5-5.0) g/dL Current Medications Generic Name Dose Route Start Last Admin Trade Name Freq PRN Reason Stop Dose Admin Acetaminophen 650 mg 09/01/18 09:29 Tylenol Tab PO Q6HR PRN Fever and/ or Pain Albuterol/Ipratropium 3 ml 08/31/18 20:00 09/01/18 08:14 Duoneb 0.5 Mg-3 Mg/3 Ml Soln INHALATION Not Given RT-Q6H [facility] Aspirin 325 mg 09/01/18 09:00 Aspirin PO DAILY [facility] Budesonide/Formoterol Fumarate 2 puff 08/31/18 20:00 09/01/18 08:13 Symbicort 160-4.5 Mcg Inhaler INHALATION Not Given RT-BID [facility] Heparin Sodium/Sodium Chloride 250 mls @ 10.01 mls/hr 08/31/18 16:45 00:45 25,000 unit/ Sodium Chloride IV 15 units/kg/hr .Q24H BRADY 12.51 mls/hr Titration Protocol 12 UNITS/KG/HR Montelukast Sodium 10 mg 09/01/18 09:00 Singulair PO DAILY [facility] Nicotine 1 patch 09/01/18 09:00 Habitrol 21mg/24hr Patch TRANSDERM DAILY [facility] Nitroglycerin 0.4 mg 08/31/18 14:58 08/31/18 18:10 Nitrostat SUBLINGUAL 0.4 mg Q5M PRN Administration Chest Pain Nitroglycerin 1 inch 08/31/18 18:00 09/01/18 00:12 Nitro-Bid Oint TOPICAL Not Given Q6HR [facility] Prednisone 40 mg 09/01/18 09:00 PO DAILY [facility] Intake and Output 08/31/18 09/01/18 09/01/18 22:59 06:59 14:59 Intake Total 20 98.579 Balance 20 98.579 Intake: IV 20 20 Invasive Line 1 20 20 Intake, IV Titration 78.579 Amount Heparin Sod,Pork in 0.45% 78.579 NaCl 25,000 unit In 0.45 % NaCl 1 250ml.bag @ 12 UNITS/KG/HR 10.01 mls/hr IV .Q24H [facility] Rx#: [id number] Other: Voiding Method Toilet Toilet # Voids 2 Weight 80.2 kg 08/31/18 14:30 08/31/18 14:30 Assessment and Plan Assessment: Assessment #1 atypical chest discomfort #2 cough productive of sputum #3 COPD #4 smoking Plan #1 the patient was ruled out for acute coronary event #2 severe underlying CAD to be ruled out probably as an outpatient with a stress test, unless the patient continues to have chest discomfort #3 smoking cessation was discussed with him #4 the patient possibly can be discharged home later on today if he does not have anymore chest pain. Thank you for allowing us participate in his care
[2018-09-01 11:33] VITALS: BP 165/95; RESP 16; TEMP 98.5
--- NOTE | 2018-09-01 11:37 | P.DS ---
Providers Date of admission: 08/31/18 16:28 Expected date of discharge: 09/01/18 Attending physician: Ismael Russell MD Consults: 08/31/18 16:39 Consult Physician Stat Consulting Provider: [facility] Consult Reason/Comments: chest pain Do you want consulting provider notified?: Yes Primary care physician: Stated None Hospital Course: The patient is a 58 yo M with a PMH of COPD, seizure disorder, and active smoker presented to the ED for L sided chest pain. The patient notes that over the past 3 days, he has a cough productive of yellow phlegm w/ SOB and a L sided constant chest pain, 6/10, non-radiating, with no alleviating or exacerbating factors, non-pleuritic. In the ED, the patient's CXR was unremarkable, Troponin < 0.012, with EKG showing NSR @ 89 bpm and non-specific changes. The patient was admitted under observation. Troponin was neg x 3. Cardiology evaluated the patient and recommended that ACS was ruled out and an outpatient stress test if warranted. The patient was seen and examined at the bedside. He endorsed 3/10 pleuritic R sided chest pain but otherwise denied active complaints and notes an improvement in his breathing. He is presently stable and ready for discharge to home. The patient was advised that if his chest pain recurrs or his SOB worsens, to go to the nearest ED. Physical Examination General: Non-toxic, in no acute distress, appears stated age, normal weight HEENT: NC/AT, anicteric sclerae, moist conjunctiva, no lid-lag, PERRLA Cardiovascular: S1/S2 wnl, no murmurs, rubs, or gallops Lungs: Clear to auscultation, normal respiratory effort, no accessory muscle use Abdominal: Soft, non-tender, non-distended, no guarding, rebound, or rigidity Skin: Warm, dry Extremities: No edema or contractures Psychiatric: Alert and oriented to person, place and time, appropriate affect Neuro: CN II-XII grossly intact, Strength 5/5 in all 4 extremities, Speech intact, Sensation to light touch grossly intact throughout Discharge diagnosis: Chest pain ACS ruled out; COPD exacerbation; Tobacco abuse ; Seizure disorder A total of 60 minutes of time were spent preparing this complex discharge summary. Pertinent Studies: As per above Patient Condition at Discharge: Stable Plan - Discharge Summary Discharge Rx Participant: No New Discharge Prescriptions: New Albuterol Inhaler [Ventolin Hfa Inhaler] 1 - 2 puff INHALATION RT-Q6H PRN #1 inhaler PRN Reason: Shortness Of Breath Budesonide-Formot 160-4.5 Mcg [Symbicort 160-4.5 Mcg Inhaler] 2 puff INHALATION RT-BID #1 inhaler Montelukast [Singulair] 10 mg PO DAILY #30 tab predniSONE 40 mg PO DAILY #5 tab Discharge Medication List Albuterol Inhaler [Ventolin Hfa Inhaler] 1 - 2 puff INHALATION RT-Q6H PRN #1 inhaler 09/01/18 [Rx] Budesonide-Formot 160-4.5 Mcg [Symbicort 160-4.5 Mcg Inhaler] 2 puff INHALATION RT-BID #1 inhaler 09/01/18 [Rx] Montelukast [Singulair] 10 mg PO DAILY #30 tab 09/01/18 [Rx] predniSONE 40 mg PO DAILY #5 tab 09/01/18 [Rx] Follow up Appointment(s)/Referral(s): Oleg Perez MD [STAFF PHYSICIAN] - 1 Week None,Stated [Primary Care Provider] - 1-2 days Activity/Diet/Wound Care/Special Instructions: If chest pain recurs or you have worsening of breath, please go to the nearest ED. Discharge Disposition: HOME SELF-CARE
[2018-09-01 11:41] VITALS: PULSE 88
== END 2018-09-01 14:01 | disposition home or self-care (01) ==
LOC: EC 14:09 → 1SOBS 16:28
PROVIDERS: ADMIT Internal Medicine; ATTEND Internal Medicine
DX: R07.89 Other chest pain (principal); J44.1 Chronic obstructive pulmonary disease with (acute) exacerbation; R79.89 Other specified abnormal findings of blood chemistry; G40.909 Epilepsy, unspecified, not intractable, without status epilepticus; G43.909 Migraine, unspecified, not intractable, without status migrainosus; F17.200 Nicotine dependence, unspecified, uncomplicated; R59.9 Enlarged lymph nodes, unspecified; Z88.6 Allergy status to analgesic agent; Z88.5 Allergy status to narcotic agent; Z88.0 Allergy status to penicillin; Z87.19 Personal history of other diseases of the digestive system; Z90.49 Acquired absence of other specified parts of digestive tract; Z90.79 Acquired absence of other genital organ(s); Z89.011 Acquired absence of right thumb; Z82.49 Family history of ischemic heart disease and other diseases of the circulatory system; Z23 Encounter for immunization
CPT/HCPCS: 96366 ×2; 96376; 96361; 96365; 99285; 36415; 94640 ×3; 94760 ×2; 93005; 85379; 80061; 80053; 82550 ×2; 82553 ×2; 83735; 84484 ×2; 85025; 85610; 85730 ×2; 87070; 87205; 87502; 71046; 71275; 90732; 90686; G0378 ×2; G0008; G0009; J1644 ×2; J7512; Q9967

== ENCOUNTER 2019-01-21 04:24 | Emergency (ER) | payer OTHER ==
--- NOTE | 2019-01-21 04:52 | ED ---
Back Pain HPI - General Chief Complaint: Back Pain/Injury Stated Complaint: Back injury,left leg pain Time Seen by Provider: 01/21/19 04:35 Source: patient Limitations: no limitations - History of Present Illness Initial Comments: Adam is a 4-year-old gentleman who does not follow closely with any physicians he presents the emergency department today for evaluation back pain. Patient reports that this morning he was getting ready for work, he bent over to pull on his jeans when he felt a pop in his back immediately felt burning pain down his left leg. Patient he has chronic back pain but doesn't see a doctor about this. He's never experienced pain like this in the past though he is familiar with sciatic pain and believes that's what he is experiencing. He denies any numbness in legs, numbness in the perineal region, any bowel or bladder continence or trouble urinating. He reports burning sensation down his left buttock and his left lateral thigh. - Related Data Previous Rx's Medication Instructions Recorded Albuterol Inhaler [Ventolin Hfa 1 - 2 puff INHALATION RT-Q6H PRN 09/01/18 Inhaler] #1 inhaler Budesonide-Formot 160-4.5 Mcg 2 puff INHALATION RT-BID #1 inhaler 09/01/18 [Symbicort 160-4.5 Mcg Inhaler] Montelukast [Singulair] 10 mg PO DAILY #30 tab 09/01/18 predniSONE 40 mg PO DAILY #5 tab 09/01/18 Gabapentin [Neurontin] 400 mg PO TID #30 cap 01/21/19 Lidocaine 5% Patch [Lidoderm] 1 patch TOPICAL DAILY #30 patch 01/21/19 predniSONE [Deltasone] 40 mg PO DAILY 5 Days #10 tablet 01/21/19 Allergies Allergy/AdvReac Type Severity Reaction Status Date / Time Penicillins Allergy Rash/Hives Verified 01/21/19 04:30 aspirin AdvReac PATIENT Verified 01/21/19 04:30 HAS AN ULCER codeine AdvReac Nausea & Verified 01/21/19 04:30 Vomiting ibuprofen [From Motrin] AdvReac PATIENT Verified 01/21/19 04:30 HAS AN ULCER Review of Systems ROS Statement: Those systems with pertinent positive or pertinent negative responses have been documented in the HPI. ROS Other: All systems not noted in ROS Statement are negative. Past Medical History Past Medical History: COPD, GI Bleed, Seizure Disorder Additional Past Medical History / Comment(s): migraines, last seizure 2001, History of Any Multi-Drug Resistant Organisms: None Reported Past Surgical History: Cholecystectomy Additional Past Surgical History / Comment(s): amputation right thumb, skin graft right hand, left testicle removed. Past Anesthesia/Blood Transfusion Reactions: No Reported Reaction Additional Past Anesthesia/Blood Transfusion Reaction / Comment(s): pt has recieved blood transfusion - no reaction Past Psychological History: No Psychological Hx Reported Smoking Status: Current every day smoker Past Alcohol Use History: Rare Past Drug Use History: None Reported - Past Family History Mother History Unknown: Yes Family Medical History: Myocardial Infarction ([place]) Father History Unknown: Yes Family Medical History: Myocardial Infarction ([place]) General Exam - General Exam Comments Initial Comments: Physical Exam GENERAL: Patient is well-developed and well-nourished. Patient is nontoxic and well-hydrated and is in no distress. HENT: Normocephalic, Atraumatic. EYES: PERRL, EOMI PULMONARY: Unlabored respirations CARDIOVASCULAR: RRR ABDOMEN: Soft and nontender with normal bowel sounds. SKIN: Skin is clear with no lesions or rashes and otherwise unremarkable. : Deferred NEUROLOGIC: Patient is alert and oriented x3. Moving all extremities spontaneously Normal gait MUSCULOSKELETAL: Thoracic kyphosis Normal extremities with adequate strength and full range of motion. No lower extremity swelling or edema. No calf tenderness. PSYCHIATRIC: Normal psychiatric evaluation Limitations: no limitations Course Vital Signs 01/21/19 04:28 Temperature 97.5 F L Pulse Rate 75 Respiratory 17 Rate Blood Pressure 158/100 O2 Sat by Pulse 98 Oximetry Medical Decision Making - Medical Decision Making The patient was seen and evaluated history was obtained from the patient Patient bent over felt a pop in his back and is now dispensing sciatic-like pain. He has no signs of cauda equina. Neck signs given patient's advanced age and x-ray of the lumbar spine will be ordered. X-rays with degenerative changes no fractures no signs of metastatic disease Patient comfortable plan for discharge home with medications as discussed and a work note for today. Information on sciatica and low back pain exercises will be provided. Follow up with primary care is recommended patient was referred to Dr. [facility] for follow-up. In addition patient was per Dr. Dr. Holley for spine follow-up. Disposition Clinical Impression: Mechanical back pain Disposition: HOME SELF-CARE Condition: Stable Instructions (If sedation given, give patient instructions): Sciatica (ED), Acute Low Back Pain (ED), Lower Back Exercises (ED) Prescriptions: predniSONE [Deltasone] 40 mg PO DAILY 5 Days #10 tablet Lidocaine 5% Patch [Lidoderm] 1 patch TOPICAL DAILY #30 patch Gabapentin [Neurontin] 400 mg PO TID #30 cap Is patient prescribed a controlled substance at d/c from ED?: No Referrals: None,Stated [Primary Care Provider] - 1-2 days Nicolas Holley DO [Doctor of Osteopathic Medicine] - 1-2 days Trisha Lara MD [REFERRING] - 1-2 days
[2019-01-21] MEDS ORDERED: LIDOCAINE 5% PATCH TOPICAL STA (04:57)
[2019-01-21] MEDS ORDERED: KETOROLAC 30 MG/ML 1 ML VIAL IM STA (04:59)
--- NOTE | 2019-01-21 05:56 | XR ---
Lumbar Spine, 3 views INDICATION: Back pain COMPARISON: Lumbar spine radiographs 07/11/18 FINDINGS: Frontal, lateral, and coned-down lumbosacral views of the lumbar spine are obtained. There are 5 [id number] lumbar vertebrae. There is normal vertebral body height and alignment. There is mild multilevel degenerative disc disease, greatest at L4-L5. There is lower lumbar facet arthropathy. Right upper quadrant cholecystectomy clips are noted. IMPRESSION: 1. Mild multilevel degenerative disc disease, greatest at L4-L5. 2. No acute fracture or subluxation.
[2019-01-21 06:24] VITALS: BP 149/78; PULSE 88; RESP 18; TEMP 97.7
== END 2019-01-21 06:24 | disposition home or self-care (01) ==
LOC: EC 04:24
DX: M54.9 Dorsalgia, unspecified (principal); F17.200 Nicotine dependence, unspecified, uncomplicated; Z88.0 Allergy status to penicillin; Z88.5 Allergy status to narcotic agent; Z88.6 Allergy status to analgesic agent
CPT/HCPCS: 72100; 99283; 96372; J1885

== ENCOUNTER 2019-01-30 19:33 | Emergency (ER) | payer OTHER ==
[2019-01-30] MEDS ORDERED: SODIUM CHLORIDE 0.9% 500 ML 500 ML IV ONE (20:50)
[2019-01-30 21:21] LABS: ALT 20 U/L (21-72); AST 15 U/L (17-59); African American GFR (CKD) >90 (>60 ml/min/1.73 sqM); Albumin 3.8 g/dL (3.5-5.0); Alkaline Phosphatase 63 U/L (38-126); Anion Gap 5 mmol/L; Blood Urea Nitrogen 13 mg/dL (9-20); Calcium 9.8 mg/dL (8.4-10.2); Carbon Dioxide 32 mmol/L (22-30); Chloride 104 mmol/L (98-107); Glucose 137 mg/dL (74-99); Potassium 3.6 mmol/L (3.5-5.1); Sodium 141 mmol/L (137-145); Total Bilirubin 0.3 mg/dL (0.2-1.3); Total Protein 6.7 g/dL (6.3-8.2)
[2019-01-30 21:23] LABS: Basophils # (A) 0.1 k/uL (0-0.2); Basophils % (A) 1 %; Eosinophils # (A) 0.2 k/uL (0-0.7); Eosinophils % (A) 2 %; HCT 37.9 % (39.0-53.0); HGB 11.6 gm/dL (13.0-17.5); Hypochromasia Marked; Lymphocytes % (A) 10 %; MCH 24.6 pg (25.0-35.0); MCHC 30.6 g/dL (31.0-37.0); MCV 80.6 fL (80.0-100.0); Mean Platelet Volume 7.6; Monocytes # (A) 0.6 k/uL (0-1.0); Monocytes % (A) 6 %; Neutrophils # (A) 8.3 k/uL (1.3-7.7); Neutrophils % (A) 81 %; Platelet Count 298 k/uL (150-450); RDW 15.1 % (11.5-15.5); WBC 10.3 k/uL (3.8-10.6)
[2019-01-30 22:06] VITALS: TEMP 97.8
--- NOTE | 2019-01-30 22:09 | CT ---
EXAMINATION TYPE: CT soft tissue neck w con DATE OF EXAM: 01/30/2019 9:54 PM COMPARISON: None HISTORY: Right sided submandibular swelling. CT DLP: 216.6 mGycm Automated exposure control for dose reduction was used. CONTRAST: CT scan of the neck is performed following with IV Contrast, patient injected with 100ml mL of Isovue 300. Axial images are obtained, coronal and sagittal reformatted images are reviewed. FINDINGS: Superior mediastinum appears normal. There is normal branching pattern of the great vessels on the ao rtic arch. Thyroid gland is symmetric. There is arterial flow in the carotid and vertebral arteries. There is slight increased size of right submandibular salivary gland compared to the left. There is m inimal fat stranding around the right submandibular salivary gland. Parotid glands are fairly symmetr ic. Subglottic trachea appears normal. Epiglottis appears normal. There is some calcification of the righ t tonsil. Adenoids appear normal. There are spondylotic changes in the cervical spine. There are some enlarged right submandibular the lymph nodes that measure up to 1.2 cm. There is no discrete fluid c ollection. There is normal aeration of the maxillary sinuses. Temporal bones appear intact. There is subcutaneous edema on the anterior right neck. IMPRESSION: Mild enlargement of right submandibular salivary gland with surrounding mild inflammator y changes consistent with inflammatory process. Mild right-sided submandibular lymphadenopathy. Perea es of cellulitis in the anterior right neck. Calcification in the right tonsil consistent with old granulomatous disease.
[2019-01-30] MEDS ORDERED: CLINDAMYCIN 150 MG CAP PO STA (22:30)
--- NOTE | 2019-01-30 22:36 | ED ---
ENT HPI - General Chief complaint: ENT Stated complaint: Jaw/neck swollen Time Seen by Provider: 01/30/19 20:23 Source: patient Mode of arrival: ambulatory Limitations: no limitations - History of Present Illness Initial comments: 58-year-old male patient presents to the emergency department today for evaluation of right neck swelling and pain. Patient states this started this morning upon wakening. Patient states it has been causing discomfort throughout the day. Patient denies any dry mouth or change in the swelling with eating. Denies any fever or chills. Denies any history of similar symptoms. Patient has dentures. No sores to the gums. Patient denies any recent rash, shortness breath, chest pain, abdominal pain, nausea, vomiting, diarrhea, constipation, back pain, numbness, tingling, dizziness, weakness, hematuria, dysuria, urinary urgency, urinary frequency, headache, visual changes, or any other complaints. - Related Data Previous Rx's Medication Instructions Recorded Clindamycin HCl 300 mg PO Q6H #40 cap 01/30/19 Allergies Allergy/AdvReac Type Severity Reaction Status Date / Time Penicillins Allergy Rash/Hives Verified 01/30/19 21:23 aspirin AdvReac PATIENT Verified 01/30/19 21:23 HAS AN ULCER codeine AdvReac Nausea & Verified 01/30/19 21:23 Vomiting ibuprofen [From Motrin] AdvReac PATIENT Verified 01/30/19 21:23 HAS AN ULCER Review of Systems ROS Statement: Those systems with pertinent positive or pertinent negative responses have been documented in the HPI. ROS Other: All systems not noted in ROS Statement are negative. Past Medical History Past Medical History: COPD, GI Bleed, Seizure Disorder Additional Past Medical History / Comment(s): migraines, last seizure 2001, History of Any Multi-Drug Resistant Organisms: None Reported Past Surgical History: Cholecystectomy Additional Past Surgical History / Comment(s): amputation right thumb, skin graft right hand, left testicle removed. Past Anesthesia/Blood Transfusion Reactions: No Reported Reaction Additional Past Anesthesia/Blood Transfusion Reaction / Comment(s): pt has recieved blood transfusion - no reaction Past Psychological History: No Psychological Hx Reported Smoking Status: Current every day smoker Past Alcohol Use History: Rare Past Drug Use History: None Reported - Past Family History Mother History Unknown: Yes Family Medical History: Myocardial Infarction ([place]) Father History Unknown: Yes Family Medical History: Myocardial Infarction ([place]) General Exam Limitations: no limitations General appearance: alert, in no apparent distress, other (Physical well- developed, well-nourished adult male patient in no acute distress. Vital signs upon presentation are temperature 98.8F, pulse 107, respirations 18, blood pressure 168/101, pulse ox 98% on room air.) Eye exam: Present: normal appearance, PERRL, EOMI. Absent: scleral icterus, conjunctival injection, periorbital swelling ENT exam: Present: normal exam, normal oropharynx, mucous membranes moist Respiratory exam: Present: normal lung sounds bilaterally. Absent: respiratory distress, wheezes, rales, rhonchi, stridor Cardiovascular Exam: Present: regular rate, normal rhythm, normal heart sounds. Absent: systolic murmur, diastolic murmur, rubs, gallop, clicks GI/Abdominal exam: Present: soft, normal bowel sounds. Absent: distended, tenderness, guarding, rebound, rigid Neurological exam: Present: alert, oriented X3, CN II-XII intact Psychiatric exam: Present: normal affect, normal mood Skin exam: Present: warm, dry, intact, normal color. Absent: rash Course Vital Signs 01/30/19 01/30/19 01/30/19 19:42 22:04 22:45 Temperature 98.8 F 97.8 F Pulse Rate 107 H 80 84 Respiratory 18 18 16 Rate Blood Pressure 168/101 174/92 183/99 O2 Sat by Pulse 96 96 Oximetry Medical Decision Making - Medical Decision Making 58-year-old male patient presents to the emergency department today for evaluation of swelling to the right neck. Physical examination did reveal swel ling and tenderness to the right submandibular region. Patient is afebrile. White blood cell count was within normal range. CT of the soft tissues of the neck was obtained and did show swelling of the right submandibular salivary gland with enlarged lymph nodes and surrounding inflammatory changes. Also evidence of cellulitis to the right anterior neck. Patient will be started on clindamycin. Instructed to suck on lemon drops throat the day. He is instructed to follow-up with the ENT specialist for further evaluation. Return parameters were discussed in detail. He verbalizes understanding and agrees with this plan. - Lab Data Result diagrams: 01/30/19 21:05 01/30/19 21:05 Lab Results 01/30/19 01/30/19 Range/Units 21:05 21:05 WBC 10.3 (3.8-10.6) k/uL RBC 4.70 (4.30-5.90) m/uL Hgb 11.6 L (13.0-17.5) gm/dL Hct 37.9 L (39.0-53.0) % MCV 80.6 (80.0-100.0) fL MCH 24.6 L (25.0-35.0) pg MCHC 30.6 L (31.0-37.0) g/dL RDW 15.1 (11.5-15.5) % Plt Count 298 (150-450) k/uL Neutrophils % 81 % Lymphocytes % 10 % Monocytes % 6 % Eosinophils % 2 % Basophils % 1 % Neutrophils # 8.3 H (1.3-7.7) k/uL Lymphocytes # 1.0 (1.0-4.8) k/uL Monocytes # 0.6 (0-1.0) k/uL Eosinophils # 0.2 (0-0.7) k/uL Basophils # 0.1 (0-0.2) k/uL Hypochromasia Marked Sodium 141 (137-145) mmol/L Potassium 3.6 (3.5-5.1) mmol/L Chloride 104 (98-107) mmol/L Carbon Dioxide 32 H (22-30) mmol/L Anion Gap 5 mmol/L BUN 13 (9-20) mg/dL Creatinine 0.92 (0.66-1.25) mg/dL Est GFR (CKD-EPI)AfAm >90 (>60 ml/min/1.73 sqM) Est GFR (CKD-EPI)NonAf >90 (>60 ml/min/1.73 sqM) Glucose 137 H (74-99) mg/dL Calcium 9.8 (8.4-10.2) mg/dL Total Bilirubin 0.3 (0.2-1.3) mg/dL AST 15 L (17-59) U/L ALT 20 L (21-72) U/L Alkaline Phosphatase 63 (38-126) U/L Total Protein 6.7 (6.3-8.2) g/dL Albumin 3.8 (3.5-5.0) g/dL - Radiology Data Radiology results: report reviewed, image reviewed CT soft tissue neck with contrast was obtained. Report was reviewed in its entirety. Impression by Dr. Victoria shows mild enlargement of the right submandibular salivary gland with surrounding mild inflammatory changes consistent with inflammatory process. Mild right-sided submandibular lymphadenopathy. Changes of sialitis in the anterior right neck. Disposition Clinical Impression: Sialoadenitis of submandibular gland Disposition: HOME SELF-CARE Condition: Good Instructions (If sedation given, give patient instructions): Sialoadenitis (ED) Additional Instructions: Stuck on lemon drops throughout the day. Complete antibiotic prescription and full. Follow-up with the ENT specialist for recheck as needed. Follow-up through primary care physician for recheck in 1-2 days. Return to the emergency department immediately for any new, worsening, or concerning symptoms. Prescriptions: Clindamycin HCl 300 mg PO Q6H #40 cap Is patient prescribed a controlled substance at d/c from ED?: No Referrals: None,Stated [Primary Care Provider] - 1-2 days Yemi Tripp DO [Doctor of Osteopathic Medicine] - 1-2 days Time of Disposition: 22:36
[2019-01-30 22:48] VITALS: BP 183/99; PULSE 84; RESP 16
== END 2019-01-30 22:50 | disposition home or self-care (01) ==
LOC: EC 19:33
DX: K11.20 Sialoadenitis, unspecified (principal); L03.221 Cellulitis of neck; F17.200 Nicotine dependence, unspecified, uncomplicated; Z88.0 Allergy status to penicillin; Z88.5 Allergy status to narcotic agent; Z88.6 Allergy status to analgesic agent; Z89.011 Acquired absence of right thumb
CPT/HCPCS: 36415; 80053; 85025; 70491; 99284; 96360; Q9967

== ENCOUNTER 2020-03-16 02:57 | Emergency (ER) | payer OTHER ==
[2020-03-16 03:03] VITALS: RESP 16; TEMP 98.4
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
[2020-03-16 04:22] VITALS: BP 157/102; PULSE 81
== END 2020-03-16 04:19 | disposition home or self-care (01) ==
LOC: EC 02:57
DX: S00.83XA Contusion of other part of head, initial encounter (principal); I10 Essential (primary) hypertension; F17.200 Nicotine dependence, unspecified, uncomplicated; Z88.0 Allergy status to penicillin; Z88.6 Allergy status to analgesic agent; Z88.5 Allergy status to narcotic agent; W22.8XXA Striking against or struck by other objects, initial encounter; Y92.89 Other specified places as the place of occurrence of the external cause; Y93.01 Activity, walking, marching and hiking
CPT/HCPCS: 70450; 99284

== ENCOUNTER 2020-06-01 13:18 | Emergency (ER) | payer OTHER ==
[2020-06-01] MEDS ORDERED: LIDOCAINE 5% PATCH TOPICAL STA (13:34)
[2020-06-01] MEDS ORDERED: ASPIRIN 81 MG PO STA (13:36)
--- NOTE | 2020-06-01 13:36 | ED ---
General Adult HPI - General Chief complaint: Chest Pain Stated complaint: chest pain, SOB Time Seen by Provider: 06/01/20 13:25 Source: patient Mode of arrival: wheelchair Limitations: no limitations - History of Present Illness Initial comments: Dictation was produced using [employer] dictation software. please excuse any grammatical, word or spelling errors. This patient was cared for during a federal and state declared state of emergency secondary to Covid 19 Chief Complaint: 60-year-old male past medical history of COPD presents with chest pain History of Present Illness: Exceeded 1-year-old male 4 days ago he was at work when all of a sudden while he was standing he developed sharp right-sided chest pain. Shortly after he developed some cough. States that the pain as sharp and worse with palpation. At rest he denies any symptoms.. Patient denies any other exacerbating or mitigating maneuvers. States that the pain does not really to the shoulders or jaw. No associated diaphoresis or nausea. Patient has history of COPD he does not take any medications. He continues to use tobacco. As a cardiac history or history of blood clots. He does not have any lower extremity swelling or pain. The ROS documented in this emergency department record has been reviewed and confirmed by me. Those systems with pertinent positive or negative responses have been documented in the HPI. All other systems are other negative and/or noncontributory. PHYSICAL EXAM: General Impression: Alert and oriented x3, not in acute distress HEENT: Normocephalic atraumatic, extra-ocular movements intact, pupils equal and reactive to light bilaterally, mucous membranes moist. Cardiovascular: Heart regular rate and rhythm Chest: Able to complete full sentences, no retractions, no tachypnea, reproducible sharp tenderness to the right anterior chest along the anterior axillary line approximately seventh rib Abdomen: abdomen soft, non-tender, non-distended, no organomegaly Musculoskeletal: Pulses present and equal in all extremities, no peripheral edema Motor: no focal deficits noted Neurological: CN II-XII grossly intact, no focal motor or sensory deficits noted Skin: Intact with no visualized rashes Psych: Normal affect and mood ED course: 60-year-old male presents with atypical chest pain. Signs upon arrival shows blood pressure 180/94, rest of vital signs within acceptable limits. EKGs benign showing no signs of any ischemia or infarction. Laboratory evaluation obtained. CBC is unremarkable. Coag panel is negative. D-dimer 0.57 is negative compared to age adjusted d-dimer. Metabolic panel is negative. Troponins negative. Chest x-ray shows no acute processes. Patient be discharged she is reevaluated after given Percocet with improvement of symptoms. Patient has no high-risk features at this time. His pain is clearly reproducible. No concern for aortic dissection or pulmonary embolus at this time EKG interpretation: Ventricular rate 80, normal sinus rhythm,. And 180, QRS 94, QTC 422. No VA prolongation, no QTC prolongation, no ST or T-wave changes noted. EKG compared to August 31 2018 showing no changes. Overall, this EKG is unremarkable - Related Data Previous Rx's Medication Instructions Recorded oxyCODONE HCL/ACETAMINOPHEN 1 tab PO Q6HR PRN 3 Days #12 tab 06/01/20 [Percocet 5-325 mg] Allergies Allergy/AdvReac Type Severity Reaction Status Date / Time Penicillins Allergy Rash/Hives Verified 06/01/20 14:39 aspirin AdvReac PATIENT Verified 06/01/20 14:39 HAS AN ULCER codeine AdvReac Nausea & Verified 06/01/20 14:39 Vomiting ibuprofen [From Motrin] AdvReac PATIENT Verified 06/01/20 14:39 HAS AN ULCER Review of Systems ROS Statement: Those systems with pertinent positive or pertinent negative responses have been documented in the HPI. ROS Other: All systems not noted in ROS Statement are negative. Past Medical History Past Medical History: COPD, GI Bleed, Seizure Disorder Additional Past Medical History / Comment(s): migraines, last seizure 2001, History of Any Multi-Drug Resistant Organisms: None Reported Past Surgical History: Cholecystectomy, Orthopedic Surgery Additional Past Surgical History / Comment(s): amputation right thumb, skin graft right hand, left testicle removed. Past Anesthesia/Blood Transfusion Reactions: No Reported Reaction Additional Past Anesthesia/Blood Transfusion Reaction / Comment(s): pt has recieved blood transfusion - no reaction Past Psychological History: No Psychological Hx Reported Smoking Status: Current every day smoker Past Alcohol Use History: Occasional Past Drug Use History: None Reported - Past Family History Mother History Unknown: Yes Family Medical History: Myocardial Infarction ([place]) Father History Unknown: Yes Family Medical History: Myocardial Infarction ([place]) General Exam Limitations: no limitations Course Vital Signs 06/01/20 06/01/20 13:19 15:11 Temperature 97.0 F L Pulse Rate 90 75 Respiratory 22 18 Rate Blood Pressure 180/94 159/97 O2 Sat by Pulse 98 98 Oximetry Medical Decision Making - Lab Data Result diagrams: 06/01/20 13:42 06/01/20 13:42 Lab Results 06/01/20 06/01/20 06/01/20 Range/Units 13:42 13:42 13:42 WBC 5.7 (3.8-10.6) k/uL RBC 4.65 (4.30-5.90) m/uL Hgb 10.3 L (13.0-17.5) gm/dL Hct 34.5 L (39.0-53.0) % MCV 74.2 L (80.0-100.0) fL MCH 22.2 L (25.0-35.0) pg MCHC 29.9 L (31.0-37.0) g/dL RDW 17.8 H (11.5-15.5) % Plt Count 286 (150-450) k/uL Neutrophils % 73 % Lymphocytes % 15 % Monocytes % 6 % Eosinophils % 4 % Basophils % 1 % Neutrophils # 4.1 (1.3-7.7) k/uL Lymphocytes # 0.9 L (1.0-4.8) k/uL Monocytes # 0.3 (0-1.0) k/uL Eosinophils # 0.3 (0-0.7) k/uL Basophils # 0.1 (0-0.2) k/uL Hypochromasia Marked Anisocytosis Slight Microcytosis Moderate PT 11.7 (9.0-12.0) sec INR 1.2 H (<1.2) APTT 26.8 (22.0-30.0) sec D-Dimer 0.57 (<0.60) mg/L FEU Sodium 138 (137-145) mmol/L Potassium 4.1 (3.5-5.1) mmol/L Chloride 106 (98-107) mmol/L Carbon Dioxide 26 (22-30) mmol/L Anion Gap 6 mmol/L BUN 12 (9-20) mg/dL Creatinine 0.82 (0.66-1.25) mg/dL Est GFR (CKD-EPI)AfAm >90 (>60 ml/min/1.73 sqM) Est GFR (CKD-EPI)NonAf >90 (>60 ml/min/1.73 sqM) Glucose 132 H (74-99) mg/dL Calcium 9.3 (8.4-10.2) mg/dL Troponin I (0.000-0.034) ng/mL 06/01/20 Range/Units 13:42 WBC (3.8-10.6) k/uL RBC (4.30-5.90) m/uL Hgb (13.0-17.5) gm/dL Hct (39.0-53.0) % MCV (80.0-100.0) fL MCH (25.0-35.0) pg MCHC (31.0-37.0) g/dL RDW (11.5-15.5) % Plt Count (150-450) k/uL Neutrophils % % Lymphocytes % % Monocytes % % Eosinophils % % Basophils % % Neutrophils # (1.3-7.7) k/uL Lymphocytes # (1.0-4.8) k/uL Monocytes # (0-1.0) k/uL Eosinophils # (0-0.7) k/uL Basophils # (0-0.2) k/uL Hypochromasia Anisocytosis Microcytosis PT (9.0-12.0) sec INR (<1.2) APTT (22.0-30.0) sec D-Dimer (<0.60) mg/L FEU Sodium (137-145) mmol/L Potassium (3.5-5.1) mmol/L Chloride (98-107) mmol/L Carbon Dioxide (22-30) mmol/L Anion Gap mmol/L BUN (9-20) mg/dL Creatinine (0.66-1.25) mg/dL Est GFR (CKD-EPI)AfAm (>60 ml/min/1.73 sqM) Est GFR (CKD-EPI)NonAf (>60 ml/min/1.73 sqM) Glucose (74-99) mg/dL Calcium (8.4-10.2) mg/dL Troponin I <0.012 (0.000-0.034) ng/mL Disposition Clinical Impression: Chest pain Disposition: HOME SELF-CARE Condition: Fair Instructions (If sedation given, give patient instructions): Chest Pain (ED) Prescriptions: oxyCODONE HCL/ACETAMINOPHEN [Percocet 5-325 mg] 1 tab PO Q6HR PRN 3 Days #12 tab PRN Reason: Pain Is patient prescribed a controlled substance at d/c from ED?: Yes If prescribed controlled substance>3 days was MAPS reviewed?: Prescribed <3 Days Referrals: None,Stated [Primary Care Provider] - 1-2 days Time of Disposition: 15:48
[2020-06-01 13:53] LABS: Anisocytosis Slight; Basophils # (A) 0.1 k/uL (0-0.2); Basophils % (A) 1 %; Eosinophils # (A) 0.3 k/uL (0-0.7); Eosinophils % (A) 4 %; HCT 34.5 % (39.0-53.0); HGB 10.3 gm/dL (13.0-17.5); Hypochromasia Marked; Lymphocytes # (A) 0.9 k/uL (1.0-4.8); Lymphocytes % (A) 15 %; MCH 22.2 pg (25.0-35.0); MCHC 29.9 g/dL (31.0-37.0); MCV 74.2 fL (80.0-100.0); Mean Platelet Volume 7.2; Microcytosis Moderate; Monocytes # (A) 0.3 k/uL (0-1.0); Monocytes % (A) 6 %; Neutrophils # (A) 4.1 k/uL (1.3-7.7); Neutrophils % (A) 73 %; Platelet Count 286 k/uL (150-450); RBC 4.65 m/uL (4.30-5.90); RDW 17.8 % (11.5-15.5); WBC 5.7 k/uL (3.8-10.6)
[2020-06-01 14:03] LABS: African American GFR (CKD) >90 (>60 ml/min/1.73 sqM); Anion Gap 6 mmol/L; Blood Urea Nitrogen 12 mg/dL (9-20); Calcium 9.3 mg/dL (8.4-10.2); Carbon Dioxide 26 mmol/L (22-30); Chloride 106 mmol/L (98-107); Glucose 132 mg/dL (74-99); Non-African American GFR(CKD) >90 (>60 ml/min/1.73 sqM); Potassium 4.1 mmol/L (3.5-5.1); Sodium 138 mmol/L (137-145)
--- NOTE | 2020-06-01 14:28 | XR ---
EXAMINATION TYPE: XR chest 2V DATE OF EXAM: 06/01/2020 COMPARISON: Chest x-ray and CTA chest August 31, 2018 HISTORY: Chest pain today. TECHNIQUE: Frontal and lateral views of the chest are obtained. FINDINGS: There is n mild chronic parenchymal changes bilaterally without suspicious new o focal air space opacity, pleural effusion, or pneumothorax seen. The cardiac silhouette size is within normal limits. Cholecystectomy clips are redemonstrated. The osseous structures are intact. IMPRESSION: Chronic changes without acute pulmonary process.
[2020-06-01 14:31] LABS: D-Dimer 0.57 mg/L FEU (<0.60); INR 1.2 (<1.2); Partial Thromboplastin Time 26.8 sec (22.0-30.0); Prothrombin Time 11.7 sec (9.0-12.0)
[2020-06-01] MEDS ORDERED: HYDROcodone/APAP 5-325MG 1 EACH TAB PO STA (14:56)
[2020-06-01 15:12] VITALS: RESP 18
[2020-06-01 15:58] VITALS: BP 165/100; PULSE 76; TEMP 98.4
== END 2020-06-01 15:53 | disposition home or self-care (01) ==
LOC: EC 13:18
DX: R07.89 Other chest pain (principal); R05 Cough; F17.200 Nicotine dependence, unspecified, uncomplicated; Z88.0 Allergy status to penicillin; Z88.6 Allergy status to analgesic agent; Z88.5 Allergy status to narcotic agent; Z86.718 Personal history of other venous thrombosis and embolism
CPT/HCPCS: 36415; 71046; 80048; 84484; 85025; 85379; 85610; 85730; 93005; 99285

== ENCOUNTER 2020-06-11 16:47 | Observation (INO) | payer OTHER ==
--- NOTE | 2020-06-11 17:14 | ED ---
Abdominal Pain HPI <DannyFrankie - Last Filed: 06/11/20 19:40> - General Source: patient Mode of arrival: ambulatory Limitations: no limitations <Olvin Oconnor - Last Filed: 06/11/20 19:46> - General Chief Complaint: Abdominal Pain Stated Complaint: kidney pain Time Seen by Provider: 06/11/20 17:09 - History of Present Illness Initial Comments: Patient is 60-year-old male presenting to emergency with a chief complaint of kidney pain and black stools. Patient reports he has been previously admitted for a GI bleed in this kind of feels similar. Patient reports he's been having dull, mild kidney pain over the last week but the pain is no worse today. States she also noticed some dark stools today. Patient reports for the past 3- 4 weeks he did feeling more cold and weak than usual. Patient states he attributed that to his job where he works extensive hours. He does report semisolid stools. Denies any nausea vomiting diarrhea. States that he does not appear more pale than usual. Denies any chest pain or shortness of breath. He believes his last colonoscopy was about 2-3 years ago. Denies any urinary symptoms. Denies hematuria, hematochezia. (Olvin Oconnor) - Related Data Previous Rx's Medication Instructions Recorded oxyCODONE HCL/ACETAMINOPHEN 1 tab PO Q6HR PRN 3 Days #12 tab 06/01/20 [Percocet 5-325 mg] Allergies Allergy/AdvReac Type Severity Reaction Status Date / Time Penicillins Allergy Rash/Hives Verified 06/11/20 16:53 aspirin AdvReac PATIENT Verified 06/11/20 16:53 HAS AN ULCER codeine AdvReac Nausea & Verified 06/11/20 16:53 Vomiting ibuprofen [From Motrin] AdvReac PATIENT Verified 06/11/20 16:53 HAS AN ULCER Review of Systems ROS Other: All systems not noted in ROS Statement are negative. <Frankie Delgado - Last Filed: 06/11/20 19:40> ROS Other: All systems not noted in ROS Statement are negative. <Olvin Oconnor - Last Filed: 06/11/20 19:46> ROS Statement: Those systems with pertinent positive or pertinent negative responses have been documented in the HPI. Past Medical History Past Medical History: COPD, GI Bleed, Seizure Disorder Additional Past Medical History / Comment(s): migraines, last seizure 2001, History of Any Multi-Drug Resistant Organisms: None Reported Past Surgical History: Cholecystectomy, Orthopedic Surgery Additional Past Surgical History / Comment(s): amputation right thumb, skin graft right hand, left testicle removed. Past Anesthesia/Blood Transfusion Reactions: No Reported Reaction Additional Past Anesthesia/Blood Transfusion Reaction / Comment(s): pt has recieved blood transfusion - no reaction Past Psychological History: No Psychological Hx Reported Smoking Status: Current every day smoker Past Alcohol Use History: Occasional Past Drug Use History: None Reported - Past Family History Mother History Unknown: Yes Family Medical History: Myocardial Infarction ([place]) Father History Unknown: Yes Family Medical History: Myocardial Infarction ([place]) <Olvin Oconnor - Last Filed: 06/11/20 19:46> General Exam Limitations: no limitations General appearance: alert, in no apparent distress Head exam: Present: atraumatic, normocephalic, normal inspection Eye exam: Present: normal appearance, PERRL, EOMI, other (Pale conjunctiva) Pupils: Present: normal accommodation ENT exam: Present: normal exam, normal oropharynx, mucous membranes moist, TM's normal bilaterally, normal external ear exam Neck exam: Present: normal inspection, full ROM. Absent: tenderness Respiratory exam: Present: normal lung sounds bilaterally. Absent: respiratory distress, wheezes, rales Cardiovascular Exam: Present: regular rate, normal rhythm, normal heart sounds GI/Abdominal exam: Present: soft. Absent: distended, tenderness, rebound Rectal exam: Present: heme (+) stool, black stool. Absent: hemorrhoids Extremities exam: Present: normal inspection, full ROM, normal capillary refill. Absent: tenderness, pedal edema, joint swelling, calf tenderness, other Back exam: Present: normal inspection, full ROM, CVA tenderness (R). Absent: tenderness, CVA tenderness (L) Neurological exam: Present: alert, oriented X3 Psychiatric exam: Present: normal affect, normal mood Skin exam: Present: warm, dry, intact, normal color <Olvin Oconnor - Last Filed: 06/11/20 19:46> Course <Frankie Delgado - Last Filed: 06/11/20 19:40> Vital Signs 06/11/20 16:51 Temperature 97 F L Pulse Rate 85 Respiratory 20 Rate Blood Pressure 161/91 O2 Sat by Pulse 98 Oximetry - Reevaluation(s) Reevaluation #1: 06/11/20 19:40 PA supervision: I personally evaluate this case patient does present with evidence of GI bleed and findings. Patient be admitted Dr. Cantu was consulted from [facility] (Frankie Delgado) Medical Decision Making - Lab Data Result diagrams: 06/11/20 17:37 06/11/20 17:37 <Frankie Delgado - Last Filed: 06/11/20 19:40> - Lab Data Result diagrams: 06/11/20 17:37 06/11/20 17:37 <Olvin Oconnor - Last Filed: 06/11/20 19:46> - Medical Decision Making Patient is 60-year-old male with history of GI bleed presenting to emergency Department with a chief complaint of kidney pain and black stools. On physical examination patient is a right CVA tenderness. No abdominal tenderness noted. Rectal examination reveals dark grainy stool. Hemoglobin from 10 days ago was at 10.3. Currently hemoglobin is 9.3. CMP and coags within normal limits. UA is unremarkable. KUB pending. Patient will be admitted for further medical management. Case discussed with Dr. Delgado. Admitting physician is Dr.Mahmood PAULSON on consult (Olvin Oconnor) - Lab Data Lab Results 06/11/20 06/11/20 06/11/20 Range/Units 17:37 17:37 17:37 WBC 5.5 (3.8-10.6) k/uL RBC 4.32 (4.30-5.90) m/uL Hgb 9.3 L (13.0-17.5) gm/dL Hct 32.5 L (39.0-53.0) % MCV 75.2 L (80.0-100.0) fL MCH 21.6 L (25.0-35.0) pg MCHC 28.7 L (31.0-37.0) g/dL RDW 17.7 H (11.5-15.5) % Plt Count 273 (150-450) k/uL Neutrophils % 66 % Lymphocytes % 21 % Monocytes % 7 % Eosinophils % 4 % Basophils % 1 % Neutrophils # 3.6 (1.3-7.7) k/uL Lymphocytes # 1.1 (1.0-4.8) k/uL Monocytes # 0.4 (0-1.0) k/uL Eosinophils # 0.2 (0-0.7) k/uL Basophils # 0.0 (0-0.2) k/uL Hypochromasia Marked Anisocytosis Slight Microcytosis Moderate PT (9.0-12.0) sec INR (<1.2) APTT (22.0-30.0) sec Sodium 138 (137-145) mmol/L Potassium 4.2 (3.5-5.1) mmol/L Chloride 104 (98-107) mmol/L Carbon Dioxide 29 (22-30) mmol/L Anion Gap 5 mmol/L BUN 17 (9-20) mg/dL Creatinine 0.91 (0.66-1.25) mg/dL Est GFR (CKD-EPI)AfAm >90 (>60 ml/min/1.73 sqM) Est GFR (CKD-EPI)NonAf >90 (>60 ml/min/1.73 sqM) Glucose 99 (74-99) mg/dL Calcium 9.3 (8.4-10.2) mg/dL Total Bilirubin 0.4 (0.2-1.3) mg/dL AST 30 (17-59) U/L ALT 12 (4-49) U/L Alkaline Phosphatase 61 (38-126) U/L Total Protein 7.3 (6.3-8.2) g/dL Albumin 4.2 (3.5-5.0) g/dL Lipase 160 (23-300) U/L Urine Color Light Yellow Urine Appearance Clear (Clear) Urine pH 6.5 (5.0-8.0) Ur Specific [place] 1.016 (1.001-1.035) Urine Protein Negative (Negative) Urine Glucose (UA) Negative (Negative) Urine Ketones Negative (Negative) Urine Blood Small H (Negative) Urine Nitrite Negative (Negative) Urine Bilirubin Negative (Negative) Urine Urobilinogen <2.0 (<2.0) mg/dL Ur Leukocyte Esterase Negative (Negative) Urine RBC 15 H (0-5) /hpf Urine WBC 2 (0-5) /hpf Ur Squamous Epith Cells 1 (0-4) /hpf Urine Mucus Rare H (None) /hpf Stool Occult Blood (Negative) Blood Type Blood Type Recheck Bld Type Recheck Status Antibody Screen Spec Expiration Date 06/11/20 06/11/20 06/11/20 Range/Units 17:37 17:37 17:55 WBC (3.8-10.6) k/uL RBC (4.30-5.90) m/uL Hgb (13.0-17.5) gm/dL Hct (39.0-53.0) % MCV (80.0-100.0) fL MCH (25.0-35.0) pg MCHC (31.0-37.0) g/dL RDW (11.5-15.5) % Plt Count (150-450) k/uL Neutrophils % % Lymphocytes % % Monocytes % % Eosinophils % % Basophils % % Neutrophils # (1.3-7.7) k/uL Lymphocytes # (1.0-4.8) k/uL Monocytes # (0-1.0) k/uL Eosinophils # (0-0.7) k/uL Basophils # (0-0.2) k/uL Hypochromasia Anisocytosis Microcytosis PT 11.4 (9.0-12.0) sec INR 1.1 (<1.2) APTT 23.5 (22.0-30.0) sec Sodium (137-145) mmol/L Potassium (3.5-5.1) mmol/L Chloride (98-107) mmol/L Carbon Dioxide (22-30) mmol/L Anion Gap mmol/L BUN (9-20) mg/dL Creatinine (0.66-1.25) mg/dL Est GFR (CKD-EPI)AfAm (>60 ml/min/1.73 sqM) Est GFR (CKD-EPI)NonAf (>60 ml/min/1.73 sqM) Glucose (74-99) mg/dL Calcium (8.4-10.2) mg/dL Total Bilirubin (0.2-1.3) mg/dL AST (17-59) U/L ALT (4-49) U/L Alkaline Phosphatase (38-126) U/L Total Protein (6.3-8.2) g/dL Albumin (3.5-5.0) g/dL Lipase (23-300) U/L Urine Color Urine Appearance (Clear) Urine pH (5.0-8.0) Ur Specific [place] (1.001-1.035) Urine Protein (Negative) Urine Glucose (UA) (Negative) Urine Ketones (Negative) Urine Blood (Negative) Urine Nitrite (Negative) Urine Bilirubin (Negative) Urine Urobilinogen (<2.0) mg/dL Ur Leukocyte Esterase (Negative) Urine RBC (0-5) /hpf Urine WBC (0-5) /hpf Ur Squamous Epith Cells (0-4) /hpf Urine Mucus (None) /hpf Stool Occult Blood Positive (Negative) Blood Type AB Negative Blood Type Recheck AB Neg Bld Type Recheck Status No Antibody Screen NEGATIVE Spec Expiration Date 06/14/2020 - 2283 - EKG Data EKG Comments: Sinus tachycardia Ventricular rate 103, VA 136, QRS 60, QTC 424. (Olvin Oconnor) Disposition <Frankie Delgado - Last Filed: 06/11/20 19:40> Is patient prescribed a controlled substance at d/c from ED?: No Time of Disposition: 19:46 <Olvin Oconnor - Last Filed: 06/11/20 19:46> Clinical Impression: GI bleed, Anemia Disposition: ADMITTED IP TO THIS [facility] Condition: Good Referrals: None,Stated [Primary Care Provider] - 1-2 days
[2020-06-11] MEDS ORDERED: SODIUM CHLORIDE 0.9% 1,000 ML IV STA (17:15)
[2020-06-11 18:00] LABS: Appearance,Urine Clear (Clear); Bilirubin,Urine Negative (Negative); Blood,Urine Small (Negative); Color,Urine Light Yellow; Glucose,Urine (UA) Negative (Negative); Ketones,Urine Negative (Negative); Leukocyte Esterase,Urine Negative (Negative); Mucus,Urine Rare /hpf; Nitrite,Urine Negative (Negative); PH, Urine 6.5 (5.0-8.0); Protein,Urine Negative (Negative); RBC,Urine 15 /hpf (0-5); Specific Gravity,Urine 1.016 (1.001-1.035); Squamous Epithelial Cell,Urine 1 /hpf (0-4); Urobilinogen,Urine <2.0 mg/dL (<2.0); WBC,Urine 2 /hpf (0-5)
[2020-06-11 18:03] LABS: ALT 12 U/L (4-49); AST 30 U/L (17-59); African American GFR (CKD) >90 (>60 ml/min/1.73 sqM); Albumin 4.2 g/dL (3.5-5.0); Alkaline Phosphatase 61 U/L (38-126); Anion Gap 5 mmol/L; Blood Urea Nitrogen 17 mg/dL (9-20); Calcium 9.3 mg/dL (8.4-10.2); Carbon Dioxide 29 mmol/L (22-30); Chloride 104 mmol/L (98-107); Glucose 99 mg/dL (74-99); Lipase 160 U/L (23-300); Non-African American GFR(CKD) >90 (>60 ml/min/1.73 sqM); Potassium 4.2 mmol/L (3.5-5.1); Sodium 138 mmol/L (137-145); Total Bilirubin 0.4 mg/dL (0.2-1.3); Total Protein 7.3 g/dL (6.3-8.2)
[2020-06-11 18:19] LABS: Anisocytosis Slight; Basophils % (A) 1 %; Eosinophils # (A) 0.2 k/uL (0-0.7); Eosinophils % (A) 4 %; HCT 32.5 % (39.0-53.0); HGB 9.3 gm/dL (13.0-17.5); Hypochromasia Marked; Lymphocytes # (A) 1.1 k/uL (1.0-4.8); Lymphocytes % (A) 21 %; MCH 21.6 pg (25.0-35.0); MCHC 28.7 g/dL (31.0-37.0); MCV 75.2 fL (80.0-100.0); Mean Platelet Volume 6.7; Microcytosis Moderate; Monocytes # (A) 0.4 k/uL (0-1.0); Monocytes % (A) 7 %; Neutrophils # (A) 3.6 k/uL (1.3-7.7); Neutrophils % (A) 66 %; Platelet Count 273 k/uL (150-450); RBC 4.32 m/uL (4.30-5.90); RDW 17.7 % (11.5-15.5); WBC 5.5 k/uL (3.8-10.6)
[2020-06-11 18:22] LABS: INR 1.1 (<1.2); Partial Thromboplastin Time 23.5 sec (22.0-30.0); Prothrombin Time 11.4 sec (9.0-12.0)
[2020-06-11] MEDS ORDERED: MORPHINE SULFATE 4 MG/ML SYRINGE IVP STA (19:05)
[2020-06-11] MEDS ORDERED: HYDROmorphone 0.5 MG/0.5 ML SYRINGE IVP PRN (19:46)
[2020-06-11] MEDS ORDERED: ONDANSETRON 4 MG/2 ML VIAL IVP PRN (19:46)
[2020-06-11] MEDS ORDERED: NALOXONE 0.4 MG/ML 1 ML VIAL IV PRN (19:46)
[2020-06-11] MEDS ORDERED: LORazepam 2 MG/ML INJ IV PRN (19:46)
[2020-06-11] MEDS ORDERED: ACETAMINOPHEN TAB 325 MG TAB PO PRN (19:46)
[2020-06-11] MEDS: SODIUM CHLORIDE 0.9% 1,000 ML IV SCH (19:56)
--- NOTE | 2020-06-11 20:26 | XR ---
EXAMINATION TYPE: XR KUB DATE OF EXAM: 06/11/2020 COMPARISON: 01/10/2017 HISTORY: Pain TECHNIQUE: 2 views upright FINDINGS: There are clips from cholecystectomy. There is no sign of intestinal obstruction or pneumop eritoneum. Fecal pattern is normal. Lung bases are clear. There is possible 5 mm calculus in the lowe r pole left kidney. IMPRESSION: Possible left renal calculus. Nonacute abdomen.
[2020-06-12] MEDS ORDERED: PANTOPRAZOLE 40 MG/10 ML VIAL IVP ONE
[2020-06-12] MEDS ORDERED: IPRATROPIUM-ALBUTEROL 3 ML NEB INHALATION PRN (00:08)
[2020-06-12] MEDS: MORPHINE SULFATE 4 MG/ML SYRINGE IV PRN ×3 (00:14→09:44)
[2020-06-12 00:50] LABS: Anisocytosis Slight; HCT 27.3 % (39.0-53.0); Hypochromasia Marked; MCH 21.5 pg (25.0-35.0); MCHC 28.5 g/dL (31.0-37.0); MCV 75.5 fL (80.0-100.0); Mean Platelet Volume 6.7; Microcytosis Moderate; Platelet Count 221 k/uL (150-450); RBC 3.62 m/uL (4.30-5.90); RDW 17.8 % (11.5-15.5); WBC 4.9 k/uL (3.8-10.6)
[2020-06-12 00:54] LABS: HGB 7.8 gm/dL (13.0-17.5)
--- NOTE | 2020-06-12 01:45 | P.HPIM ---
History of Present Illness H&P Date: 06/11/20 Chief Complaint: giuliana , right flank pain 60 year old male with history of GI bleeding , COPD not on home oxygen patient comes in after noticing an episode of giuliana. he has been having right flank pain radiating across his bAck for couple days now, sharp pain 8/10 in se verity , no associated urinary symptoms , no nausea or vomiting, no diarrhea. no fever or chills, no penile discharge. 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 he denies any chest pain or shortness of breath, denies any dizziness or light headedness. he denies using any NSAIDs or blood thinners, denies alcohol use. denies any weight loss he recalls similar symptoms about 3-4 years ago, for which he required blood transfusion , and had colonoscopy done he does not recall results. but he does remember being told that he has some abdnormalities in his esophagus. in the ED, occult blood positive, acute anemia microcytic. KUB showed left kidney stone Review of Systems Pertinent positives as noted in HPI. All other systems were reviewed and are negative Past Medical History Past Medical History: COPD, GI Bleed, Seizure Disorder Additional Past Medical History / Comment(s): migraines, last seizure 2001, History of Any Multi-Drug Resistant Organisms: None Reported Past Surgical History: Cholecystectomy, Orthopedic Surgery Additional Past Surgical History / Comment(s): amputation right thumb, skin graft right hand, left testicle removed. Past Anesthesia/Blood Transfusion Reactions: No Reported Reaction Additional Past Anesthesia/Blood Transfusion Reaction / Comment(s): pt has recieved blood transfusion - no reaction Past Psychological History: No Psychological Hx Reported Smoking Status: Current some day smoker Past Alcohol Use History: None Reported Past Drug Use History: None Reported - Past Family History Mother History Unknown: Yes Family Medical History: Myocardial Infarction ([place]) Father History Unknown: Yes Family Medical History: Myocardial Infarction ([place]) Medications and Allergies Home Medications Medication Instructions Recorded Confirmed Type No Known Home Medications 06/11/20 06/11/20 History Allergies Allergy/AdvReac Type Severity Reaction Status Date / Time Penicillins Allergy Rash/Hives Verified 06/11/20 19:47 aspirin AdvReac PATIENT Verified 06/11/20 19:47 HAS AN ULCER codeine AdvReac Nausea & Verified 06/11/20 19:47 Vomiting ibuprofen [From Motrin] AdvReac PATIENT Verified 06/11/20 19:47 HAS AN ULCER Physical Exam Vitals: Vital Signs Temp Pulse Pulse Resp BP BP Pulse Ox 06/11/20 21:21 97.8 F 75 19 177/96 95 06/11/20 21:00 98.4 F 71 16 135/79 95 06/11/20 16:51 97 F L 85 20 161/91 98 Intake and Output 06/11/20 06/11/20 06/12/20 14:59 22:59 06:59 Intake Total 600 Balance 600 Intake: Intake, IV Titration 300 Amount Sodium Chloride 0.9% 1, 300 000 ml @ 75 mls/hr IV . [id number] [facility] Rx#:[id number] Oral 300 Other: # Voids 1 Weight 86 kg Constitutional: No acute distress, conversant, pleasant Eyes: Anicteric sclerae, moist conjunctiva, Pupils equal round reactive to light ENMT: NC/AT Oropharynx clear, no erythema, or exudates Neck: Supple, FROM, no masses, or JVD No carotid bruits No thyromegaly Lungs: Clear to auscultation Clear to percussion Normal respiratory effort, no accessory muscle use Cardiovascular: Heart regular in rate and rhythm, No murmurs, gallops, or rubs No peripheral edema Abdominal: Soft Nontender, no guarding, rebound or rigidity tenderness at the right CVA with percussion Abdomen moving with respiration Normoactive bowel sounds No hepatomegaly, No splenomegaly No palpable mass No abdominal wall hernia noted Skin: Normal temperature, tone, texture, turgor No induration No subcutaneous nodules No rash, lesions No ulcers Extremities: No digital cyanosis No clubbing Pedal pulses intact and symmetrical Radial pulses intact and symmetrical No calf tenderness Psychiatric: Alert and oriented to person, place and time Appropriate affect fair judgement Neuro Muscles Strength 5/5 in all 4 extremities Sensation to light touch grossly present throughout Cranial nerves II-XII grossly intact No focal sensory deficits Lymphatics: no palpable cervical or supraclavicular , or inguinal lymph nodes Results CBC & Chem 7: 06/12/20 00:17 06/11/20 17:37 Labs: Abnormal Lab Results - Last 24 Hours (Table) 06/11/20 06/11/20 Range/Units 17:37 17:37 Hgb 9.3 L (13.0-17.5) gm/dL Hct 32.5 L (39.0-53.0) % MCV 75.2 L (80.0-100.0) fL MCH 21.6 L (25.0-35.0) pg MCHC 28.7 L (31.0-37.0) g/dL RDW 17.7 H (11.5-15.5) % Urine Blood Small H (Negative) Urine RBC 15 H (0-5) /hpf Urine Mucus Rare H (None) /hpf Thrombosis Risk Factor Assmnt - Choose All That Apply Each Factor Represents 1 point: Abnormal pulmonary function (COPD), Obesity (BMI >25) Each Risk Factor Represents 2 Points: Age 61-74 years Other congenital or acquired thrombophilia - If yes, enter type in comment: No Thrombosis Risk Factor Assessment Total Risk Factor Score: 4 Thrombosis Risk Factor Assessment Level: Moderate Risk Assessment and Plan Assessment: acute anemia due to GI bleeding NPO IVF hydration Hgb q 8 hours PPI IV once, then BID po transfuse for symptomatic anemia or hgb <7 GI consultation for EGD right flank pain , rule out kidney stone CT of abd / pelvis no contrast pain control flomax IVF hydration tobacco smoking clinical COPD , not on home oxygen Duoneb PRN counseled to quit smoking CODE STATUS:full code DVT prophylaxis: mechanical Discussed with: Patient, ER, RN Anticipated length of stay > than [address]: home A total of 70 minutes was spent on the care of this complex patient more than 50% of the time was spent in counseling and care coordination.
--- NOTE | 2020-06-12 07:20 | CT ---
EXAMINATION TYPE: CT abdomen pelvis wo con DATE OF EXAM: 06/12/2020 HISTORY: Abd pain into flanks with dark stools, assess for right-sided kidney stone. CT DLP: 398.7 mGycm. Automated Exposure Control for Dose Reduction was Utilized. TECHNIQUE: CT scan of the abdomen and pelvis is performed without oral or IV contrast. COMPARISON: CT abdomen and pelvis April 15, 2017 FINDINGS: Within the limitations of a non-contrast study, the following observations are made. LUNG BASES: Background chronic emphysematous with mild to moderate pulmonary fibrotic changes in the lung bases. New 8 mm right middle lobe nodule-like segments 5 noted. LIVER/GB: Cholecystectomy clips redemonstrated. PANCREAS: No significant abnormality is seen. SPLEEN: No significant abnormality is seen. ADRENALS: No significant abnormality is seen. KIDNEYS: There are 2 adjacent new lower pole left renal calculi sagittal image 79 measuring up to 7 m m in size. BOWEL: Moderate size hiatal hernia more prominent from prior. There are 2 lower pole right renal calc racquel measuring up to 5 mm in size. No hydronephrosis or obstructing ureteral calculi bilaterally. No i ntraluminal calculi in the bladder. Diverticula in the sigmoid colon. No CT evidence for acute divert iculitis. High dense material in distal bowel loops. No suspicious small or large bowel dilatation. GENITAL ORGANS: Mildly enlarged prostate gland bulging on bladder base consistent with BPH. LYMPH NODES: No greater than 1cm abdominal or pelvic lymph nodes are appreciated. OSSEOUS STRUCTURES: Mild disc space narrowing and spurring right L4-L5 level. OTHER: Persistent moderate to large sized narrow neck periumblical hernia containing fat and tiny mes enteric vessels. Mild calcified plaque abdominal aorta extends into branch vessels IMPRESSION: 1. New bilateral nonobstructing renal calculi. No hydronephrosis or obstructing ureter calculi are se en bilaterally. No new acute findings are evident. 2. New 8 mm right middle lobe nodule. Consider follow-up chest CT to assess for additional pulmonary nodules.
[2020-06-12 08:14] LABS: Anisocytosis Slight; HCT 28.3 % (39.0-53.0); HGB 7.9 gm/dL (13.0-17.5); Hypochromasia Marked; MCH 21.6 pg (25.0-35.0); MCV 77.2 fL (80.0-100.0); Mean Platelet Volume 7.3; Microcytosis Slight; Platelet Count 222 k/uL (150-450); RBC 3.67 m/uL (4.30-5.90); RDW 17.7 % (11.5-15.5); WBC 4.1 k/uL (3.8-10.6)
[2020-06-12] MEDS: PANTOPRAZOLE 40 MG TABLET PO SCH ×2 (09:45→16:57)
[2020-06-12] MEDS: SODIUM CHLORIDE 0.9% 1,000 ML IV SCH ×3 (09:45→23:28)
--- NOTE | 2020-06-12 13:16 | CONS ---
CONSULTATION DATE OF SERVICE: June 12, 2020. REQUESTING PHYSICIAN: Dr. Carreon. REASON FOR CONSULTATION: History of present anemia and black tarry stools. HISTORY OF PRESENT ILLNESS: The patient is a 60-year-old white male admitted to hospital with some black stools that started yesterday. He was having some right flank pain for the last 2 days duration. Came to the emergency room and subsequently was noted to have a hemoglobin of 7.8 g/dL and I was consulted regarding this issue. The patient states that he has been having intermittent dark stools, but yesterday was black and tarry in the morning. He denies any abdominal pain. No epigastric pain. No nausea, vomiting. He was diagnosed with gastroesophageal reflux in the past, but does not take any medications. It is diet controlled. Patient states that in 2016 he was admitted with severe symptomatic anemia and hemoglobin of 6, requiring 2 units of PRBC transfusion. He had an EGD and colonoscopy in October of [address] Schmitz, which revealed moderate-size hiatal hernia, gastritis, duodenitis and a small gastric ulcer. Also was noted to have sigmoid diverticulosis. The patient denies any recent NSAID use. Repeat hemoglobin this morning was 7.9 g/dL. PAST MEDICAL HISTORY: Peptic ulcer disease, history of COPD, gastroesophageal reflux disease, seizure disorder. PAST SURGICAL HISTORY: Cholecystectomy, EGD, colonoscopy in October of 2015, amputation of the right thumb, skin graft on the right hand. MEDICATIONS: At home, Percocet as needed. ALLERGIES: PENICILLIN, ASPIRIN, CODEINE, MOTRIN. SOCIAL HISTORY: Occasional smoker. No alcohol use. FAMILY HISTORY: Father had coronary artery disease. Mother coronary artery disease. REVIEW OF SYSTEMS: CARDIOPULMONARY: No chest pain or shortness of breath. : No dysuria or hematuria. MUSCULOSKELETAL unremarkable. SKIN unremarkable. ENDOCRINE unremarkable. PSYCHIATRIC unremarkable. NEUROLOGY: Unremarkable. ENT/VISION: Unremarkable. CONSTITUTIONAL: No recent weight loss. No fever, chills, night sweats. PHYSICAL EXAMINATION: Blood pressure is 121/52, pulse rate 69, temperature 97.9. HEENT examination unremarkable. Conjunctivae pink. Sclerae anicteric. Oral cavity no lesions. NECK no JVD. No lymph node enlargement. CHEST was clear to auscultation. HEART: Regular rate and rhythm. ABDOMEN: Soft. Bowel sounds are positive. No organomegaly. EXTREMITIES: No pedal edema. NEURO: He is alert and oriented x3. No focal deficits. LABS: From yesterday WBC 5.5, hemoglobin 9.3, MCV 75, platelets normal. Today hemoglobin is down to 7.9. ALT, AST, T-bilirubin and alkaline phosphatase are within normal limits. Stool occult blood is positive. IMPRESSION: This is a patient who presented to the hospital with right-sided flank pain and black tarry stools that started yesterday. He has been having intermittent dark colored stools for the last few weeks duration. Hemoglobin is 9.3 and dropped to 7.5 g/dL. A year ago, hemoglobin was 11.6 g/dL. The patient denies any recent NSAID use. He did have EGD and colonoscopy in October [address] Schmitz that showed gastric ulcers and moderate-sized hiatal hernia and sigmoid diverticulosis. At this time, possibility of recurrent peptic ulcer disease needs to be excluded. RECOMMENDATIONS: 1. Clear liquid diet. 2. Protonix 40 mg daily. 3. Monitor CBC closely. 4. Proceed with an upper endoscopy tomorrow. Discussed with the patient, risks, benefits and complications of the procedure and he is agreeable to it. Thank you for this consultation. MMODL / IJN: [id number] /
--- NOTE | 2020-06-12 14:22 | P.PN ---
Subjective Progress Note Date: 06/12/20 Patient was seen and examined. No acute events overnight. Patient reports right flank pain that is considerably improved since admission. He also reports melanotic stools. He denies any chest pain, shortness breath or palpitations. No nausea or vomiting. No fever or chills. Objective - Vital Signs Vital signs: Vital Signs Temp 98 F 06/12/20 12:03 Pulse 76 06/12/20 12:03 Resp 17 06/12/20 12:03 BP 126/74 06/12/20 12:03 Pulse Ox 94 L 06/12/20 12:03 Intake & Output 06/11/20 06/12/20 06/12/20 18:59 06:59 18:59 Intake Total 1400 Balance 1400 Weight 83.915 kg 86 kg Intake: Intake, IV Titration 1100 Amount Sodium Chloride 0.9% 1, 1100 000 ml @ 100 mls/hr IV . Q10H BRADY Rx#:[id number] Oral 300 Other: Voiding Method Toilet # Voids 2 - Exam General: [non toxic], [no distress], [appears at stated age] Derm: [warm], [dry] Head: [atraumatic], [normocephalic], [symmetric] Eyes: [EOMI], [no lid lag], [anicteric sclera] Mouth: [no lip lesion], [mucus membranes moist] Cardiovascular: [S1S2 reg], [no murmur], [positive DP pulse bilateral], Lungs: [CTA bilateral], [no rhonchi, no rales] , [no accessory muscle use] Abdominal: [soft], [ nontender to palpation], [no guarding], [no appreciable organomegaly], right-sided CVA tenderness Ext: [no gross muscle atrophy], [no edema], [no contractures] Neuro: [no focal neuro deficits] Psych: [Alert], [oriented], [appropriate affect] - Labs CBC & Chem 7: 06/12/20 07:46 06/11/20 17:37 Labs: Abnormal Lab Results - Last 24 Hours (Table) 06/11/20 06/11/20 06/12/20 Range/Units 17:37 17:37 00:17 RBC 3.62 L (4.30-5.90) m/uL Hgb 9.3 L 7.8 L D (13.0-17.5) gm/dL Hct 32.5 L 27.3 L (39.0-53.0) % MCV 75.2 L 75.5 L (80.0-100.0) fL MCH 21.6 L 21.5 L (25.0-35.0) pg MCHC 28.7 L 28.5 L (31.0-37.0) g/dL RDW 17.7 H 17.8 H (11.5-15.5) % Urine Blood Small H (Negative) Urine RBC 15 H (0-5) /hpf Urine Mucus Rare H (None) /hpf 06/12/20 Range/Units 07:46 RBC 3.67 L (4.30-5.90) m/uL Hgb 7.9 L (13.0-17.5) gm/dL Hct 28.3 L (39.0-53.0) % MCV 77.2 L (80.0-100.0) fL MCH 21.6 L (25.0-35.0) pg MCHC 28.0 L (31.0-37.0) g/dL RDW 17.7 H (11.5-15.5) % Urine Blood (Negative) Urine RBC (0-5) /hpf Urine Mucus (None) /hpf Assessment and Plan Assessment: Upper GI bleed Bilateral renal calculi nonobstructing Pulmonary nodule Patient symptoms of melena and acute drop in hemoglobin is concerning for upper GI bleed. Plans: Continue Protonix IV. GI consulted, recommends upper endoscopy tomorrow. Clear liquid diet and nothing by mouth after midnight. Continue normal saline at 100 mL per hour. Repeat CBC at midnight. As seen on CT abdomen and pelvis. Nonobstructing. No hydronephrosis. Plans: Pain management with morphine as needed. Follow urology in the outpatient setting. As seen on CT abdomen and pelvis. Plans: Needs repeat CT in 6 months. Follow- up with PCP for further workup and management. [Patient admitted for upper GI bleed. Transfer endoscopy tomorrow. He is pending clinical improvement. Likely DC in 1-2 days.]
[2020-06-12 16:09] LABS: Anisocytosis Slight; HCT 28.8 % (39.0-53.0); HGB 7.8 gm/dL (13.0-17.5); Hypochromasia Marked; MCH 21.1 pg (25.0-35.0); MCHC 27.1 g/dL (31.0-37.0); MCV 77.9 fL (80.0-100.0); Mean Platelet Volume 6.8; Microcytosis Slight; Platelet Count 211 k/uL (150-450); RDW 17.5 % (11.5-15.5)
[2020-06-13 00:49] LABS: Anisocytosis Slight; HCT 27.2 % (39.0-53.0); HGB 7.7 gm/dL (13.0-17.5); Hypochromasia Marked; MCH 21.8 pg (25.0-35.0); MCHC 28.4 g/dL (31.0-37.0); MCV 76.8 fL (80.0-100.0); Mean Platelet Volume 8.8; Microcytosis Slight; Platelet Count 202 k/uL (150-450); RBC 3.54 m/uL (4.30-5.90); RDW 17.9 % (11.5-15.5); WBC 4.2 k/uL (3.8-10.6)
[2020-06-13 05:49] LABS: Anisocytosis Slight; Basophils % (A) 1 %; Eosinophils # (A) 0.2 k/uL (0-0.7); Eosinophils % (A) 4 %; HGB 8.4 gm/dL (13.0-17.5); Hypochromasia Marked; Lymphocytes # (A) 0.8 k/uL (1.0-4.8); Lymphocytes % (A) 20 %; MCHC 28.9 g/dL (31.0-37.0); MCV 76.1 fL (80.0-100.0); Mean Platelet Volume 6.9; Microcytosis Slight; Monocytes # (A) 0.2 k/uL (0-1.0); Monocytes % (A) 6 %; Neutrophils # (A) 2.7 k/uL (1.3-7.7); Neutrophils % (A) 67 %; Platelet Count 204 k/uL (150-450); RBC 3.81 m/uL (4.30-5.90); RDW 17.7 % (11.5-15.5); WBC 4.1 k/uL (3.8-10.6)
[2020-06-13] MEDS ORDERED: LIDOCAINE 1% INJ 10MG/ML (20 ML MDV) ONE (06:58)
[2020-06-13] MEDS ORDERED: PROPOFOL 10 MG/ML 20 ML VIAL IV ONE (06:58)
[2020-06-13] MEDS ORDERED: IV FLUID CONTINUATION 1,000 ML IV ONE (06:59)
--- NOTE | 2020-06-13 07:20 | P.PCN ---
Date of Procedure: 06/13/20 Procedure(s) Performed: BRIEF HISTORY: Patient is a 60-year-old, pleasant, white male admitted to the hospital with GI bleed severe symptomatic anemia and hemoglobin of 7.9 g/dL. He had an episode of black tarry stools yesterday. Hemoglobin today is 8.4 g/dL.. PROCEDURE PERFORMED: Esophagogastroduodenoscopy with biopsy. PREOPERATIVE DIAGNOSIS: Melena and microcytic hypochromic anemia IV sedation per anesthesia. PROCEDURE: After informed consent was obtained, the patient was brought into the endoscopy unit. IV sedation was administered by Anesthesia under continuous monitoring. Initially the Olympus GIF-140 video endoscope was inserted into the mouth. Esophagus intubated without any difficulty. It was gradually advanced into the stomach and duodenum and carefully examined. The bulb and the second part of the duodenum appeared normal. Multiple biopsies were done from the duodenum to rule out celiac disease. The scope at this time was withdrawn to the stomach, adequately insufflated with air, and upon careful examination, mucosa of the antrum had mild gastritis and biopsies were done from this area. The, body, cardia and the fundus appeared normal. The scope was then withdrawn into the esophagus. The GE junction was located at 38 cm from the incisors. There was long segment of Yepez's esophagus extending from 28-38 cm from the incisors and the mucosa of the Yepez's esophagus appeared normal. Biopsies were done at every 1 cm intervals to rule out dysplasia. The rest of the esophagus appeared normal. There were no erosions or ulcerations seen and the patient tolerated the procedure well. IMPRESSION: 1. Moderate size hiatal hernia with multiple superficial Oswaldo erosions with no active bleeding. 2. Long segment Yepez's esophagus. 3. Mild antral gastritis RECOMMENDATIONS: The findings of this examination were discussed with the patient as well as his family. Likely cause of upper GI blood loss is from Oswaldo erosions related to hiatal hernia. He was advised to continue with Protonix 40 mg twice daily and follow antireflux measures. He'll be started on iron supplements daily and monitor CBC on a frequent basis. Diet will be advanced as tolerated. He can be discharged home today with outpatient follow- up in 3-4 weeks.
[2020-06-13 07:37] VITALS: RESP 16; TEMP 97.6
[2020-06-13] MEDS: SODIUM CHLORIDE 0.9% 1,000 ML IV SCH (08:15)
[2020-06-13] MEDS: PANTOPRAZOLE 40 MG TABLET PO SCH (08:15)
[2020-06-13 10:23] LABS: BUN/Creat Ratio 7.5 Ratio (12.00-20.00); Calcium 8.5 mg/dL (8.7-10.3); Non-African American GFR(CKD) 95.7 (60.0-200.0); Potassium 3.8 mmol/L (3.5-5.5)
[2020-06-13 10:25] VITALS: BP 164/93; PULSE 68
--- NOTE | 2020-06-13 11:23 | P.DS ---
Providers Date of admission: 06/11/20 19:39 Expected date of discharge: 06/13/20 Attending physician: Faheem Carreon MD Consults: 06/11/20 19:46 Consult Physician Stat Consulting Provider: Skye Nguyễn Consult Reason/Comments: GI bleed, anemia Do you want consulting provider notified?: Yes Primary care physician: Stated None Hospital Course: Discharge Diagnosis: Upper GI bleed Bilateral renal calculi nonobstructing Pulmonary nodule Hospital Course: Patient is a 60-year-old male who presented to the ED with melena. In the ED patient's stool occult was positive and he also had a drop in his hemoglobin. Patient was seen by GI who did a EGD and he was found to have moderate size hiatal hernia with multiple superficial Cammarano erosions. Patient was started on Protonix 40 mg twice a day. At the time of discharge patient reported that his melanotic stools had resolved. His abdominal pain had also resolved. Patient was able to tolerate a diet. His hemoglobin was trending up. Patient was then deemed stable for discharge. He was told to follow-up with gastroenterology in 2-4 weeks. Patient also instructed to avoid caffeinated beverages, spicy food and NSAIDs. Patient told to take Tylenol for his migraine headaches and not Aleve which he was taking previously. Patient had an accidental finding of pulmonary nodule. He was told to follow-up with his PCP as he will need a repeat CT chest in 6 months. General examination - Alert and Oriented 3 in NAD Heart - + S1S2 no murmurs Lungs - Clear to auscultation Abdomen soft NT ND +ve BS Extremities - No edema GLASS SMOOTHER - Moving all 4 extremities spontaneously Psych - Calm and cooperative A total of 37 minutes of time were spent preparing this complex discharge summary . Patient Condition at Discharge: Good Plan - Discharge Summary Discharge Rx Participant: No New Discharge Prescriptions: New Pantoprazole [Protonix] 40 mg PO AC-BID #60 tablet. Discharge Medication List Pantoprazole [Protonix] 40 mg PO AC-BID #60 tablet. 06/13/20 [Rx] Follow up Appointment(s)/Referral(s): None,Stated [Primary Care Provider] - 1-2 days Skye Nguyễn MD [STAFF PHYSICIAN] - 3 Weeks Discharge Disposition: HOME SELF-CARE
== END 2020-06-13 12:49 | disposition home or self-care (01) ==
LOC: EC 16:47 → 6NMEDSUR 19:39 → INTOOBSV 19:39 → 6NMEDSUR 22:26 → UNDODISIN 06-13 12:49
PROVIDERS: ADMIT Internal Medicine; ATTEND Internal Medicine
DX: K25.4 Chronic or unspecified gastric ulcer with hemorrhage (principal); K29.81 Duodenitis with bleeding; K29.51 Unspecified chronic gastritis with bleeding; K31.89 Other diseases of stomach and duodenum; K44.9 Diaphragmatic hernia without obstruction or gangrene; K22.70 Barrett's esophagus without dysplasia; D50.9 Iron deficiency anemia, unspecified; N20.0 Calculus of kidney; R91.1 Solitary pulmonary nodule; J44.9 Chronic obstructive pulmonary disease, unspecified; F17.200 Nicotine dependence, unspecified, uncomplicated; G43.909 Migraine, unspecified, not intractable, without status migrainosus; E66.9 Obesity, unspecified; K21.9 Gastro-esophageal reflux disease without esophagitis; K57.30 Diverticulosis of large intestine without perforation or abscess without bleeding; Z71.6 Tobacco abuse counseling; Z87.19 Personal history of other diseases of the digestive system; Z88.0 Allergy status to penicillin; Z88.6 Allergy status to analgesic agent; Z88.5 Allergy status to narcotic agent; Z86.69 Personal history of other diseases of the nervous system and sense organs; Z90.49 Acquired absence of other specified parts of digestive tract; Z98.890 Other specified postprocedural states; Z89.011 Acquired absence of right thumb; Z90.79 Acquired absence of other genital organ(s); Z68.27 Body mass index [BMI] 27.0-27.9, adult; Z87.11 Personal history of peptic ulcer disease; Z97.2 Presence of dental prosthetic device (complete) (partial); Z79.899 Other long term (current) drug therapy; Z79.891 Long term (current) use of opiate analgesic; Z82.49 Family history of ischemic heart disease and other diseases of the circulatory system
CPT/HCPCS: 96376; 96361 ×3; 96375; 96374; 99285; 36415; 94640; 86900; 86901; 88305; 80053; 80048; 83690; 85025 ×2; 85027 ×2; 85610; 85730; 86850; 82272; 81001; 74018; 74176; 43239; G0378 ×3; J2270 ×2; J2001; J2704; C9113

== ENCOUNTER 2020-12-13 15:03 | Emergency (ER) | payer OTHER ==
[2020-12-13 15:23] VITALS: RESP 18
[2020-12-13] MEDS ORDERED: SODIUM CHLORIDE 0.9% 1,000 ML IV STA (16:44)
[2020-12-13] MEDS ORDERED: HYDROmorphone 0.5 MG/0.5 ML SYRINGE IVP STA (16:44)
[2020-12-13] MEDS ORDERED: ONDANSETRON 4 MG/2 ML VIAL IVP STA (16:44)
--- NOTE | 2020-12-13 17:18 | ED ---
General Adult HPI - General Chief complaint: Abdominal Pain Stated complaint: ABD pain Time Seen by Provider: 12/13/20 16:41 Source: patient, RN notes reviewed Mode of arrival: ambulatory Limitations: no limitations - History of Present Illness Initial comments: Patient is a 60-year-old male that presents to emergency department with right flank pain for the past several days. He notes the pain is about a 10 out of 10 unrelieved with any at home remedies. He notes that nothing makes the pain worse. He noted that he does not have a history of kidney stones. He stated that he has been trying drink plenty water home. Notes that his urine is clean and clear. He was in no apparent distress or pain while sitting up in bed during the exam and interview. He denied any chest pain shortness of breath headache vomiting diarrhea constipation fever fatigue chills hematuria. - Related Data Previous Rx's Medication Instructions Recorded Acetaminophen Tab [Tylenol] 650 mg PO Q4H 6 Days #36 tab 12/13/20 Allergies Allergy/AdvReac Type Severity Reaction Status Date / Time Penicillins Allergy Rash/Hives Verified 12/13/20 18:32 aspirin AdvReac PATIENT Verified 12/13/20 18:32 HAS AN ULCER codeine AdvReac Nausea & Verified 12/13/20 18:32 Vomiting ibuprofen [From Motrin] AdvReac PATIENT Verified 12/13/20 18:32 HAS AN ULCER Review of Systems ROS Statement: Those systems with pertinent positive or pertinent negative responses have been documented in the HPI. ROS Other: All systems not noted in ROS Statement are negative. Past Medical History Past Medical History: COPD, GI Bleed, Seizure Disorder Additional Past Medical History / Comment(s): migraines, last seizure 2001, History of Any Multi-Drug Resistant Organisms: None Reported Past Surgical History: Cholecystectomy, Orthopedic Surgery Additional Past Surgical History / Comment(s): amputation right thumb, skin graft right hand, left testicle removed. Past Anesthesia/Blood Transfusion Reactions: No Reported Reaction Additional Past Anesthesia/Blood Transfusion Reaction / Comment(s): pt has recieved blood transfusion - no reaction Past Psychological History: No Psychological Hx Reported Smoking Status: Current some day smoker Past Alcohol Use History: Rare Past Drug Use History: None Reported - Past Family History Mother History Unknown: Yes Family Medical History: Myocardial Infarction (NH) Father History Unknown: Yes Family Medical History: Myocardial Infarction (NH) General Exam Limitations: no limitations General appearance: alert, in no apparent distress Head exam: Present: atraumatic, normocephalic, normal inspection Eye exam: Present: normal appearance, PERRL, EOMI. Absent: scleral icterus, conjunctival injection, periorbital swelling Neck exam: Present: normal inspection Respiratory exam: Present: normal lung sounds bilaterally. Absent: respiratory distress, wheezes, rales, rhonchi, stridor Cardiovascular Exam: Present: regular rate, normal rhythm, normal heart sounds. Absent: systolic murmur, diastolic murmur, rubs, gallop, clicks GI/Abdominal exam: Present: soft, normal bowel sounds. Absent: distended, tenderness, guarding, rebound, rigid Extremities exam: Present: normal inspection, full ROM, normal capillary refill. Absent: tenderness, pedal edema, joint swelling, calf tenderness Back exam: Present: normal inspection, CVA tenderness (R) Neurological exam: Present: alert, oriented X3, CN II-XII intact Psychiatric exam: Present: normal affect, normal mood Skin exam: Present: warm, dry, intact, normal color. Absent: rash Course Vital Signs 12/13/20 15:19 Temperature 98.0 F Pulse Rate 87 Respiratory 18 Rate Blood Pressure 123/85 O2 Sat by Pulse 97 Oximetry Medical Decision Making - Medical Decision Making 60-year-old male complaining of right flank pain for the past several days. Labs, 1 L normal saline, 0.5 mg of Dilaudid, 4 mg Zofran, CT of the abdomen and pelvis ordered. Labs unremarkable. CT shows 3 mm stone with mild obstruction. - Lab Data Result diagrams: 12/13/20 17:07 12/13/20 17:07 Lab Results 12/13/20 12/13/20 12/13/20 Range/Units 17:07 17:07 17:07 WBC 8.8 (3.8-10.6) k/uL RBC 4.24 L (4.30-5.90) m/uL Hgb 8.3 L (13.0-17.5) gm/dL Hct 29.1 L (39.0-53.0) % MCV 68.5 L (80.0-100.0) fL MCH 19.6 L (25.0-35.0) pg MCHC 28.6 L (31.0-37.0) g/dL RDW 17.2 H (11.5-15.5) % Plt Count 356 (150-450) k/uL MPV 6.5 Neutrophils % 75 % Lymphocytes % 15 % Monocytes % 6 % Eosinophils % 3 % Basophils % 1 % Neutrophils # 6.6 (1.3-7.7) k/uL Lymphocytes # 1.3 (1.0-4.8) k/uL Monocytes # 0.5 (0-1.0) k/uL Eosinophils # 0.3 (0-0.7) k/uL Basophils # 0.1 (0-0.2) k/uL Hypochromasia Marked Poikilocytosis Slight Anisocytosis Slight Microcytosis Marked Sodium 141 (137-145) mmol/L Potassium 4.6 (3.5-5.1) mmol/L Chloride 105 (98-107) mmol/L Carbon Dioxide 28 (22-30) mmol/L Anion Gap 8 mmol/L BUN 9 (9-20) mg/dL Creatinine 1.07 (0.66-1.25) mg/dL Est GFR (CKD-EPI)AfAm 86 (>60 ml/min/1.73 sqM) Est GFR (CKD-EPI)NonAf 75 (>60 ml/min/1.73 sqM) Glucose 114 H (74-99) mg/dL Calcium 9.2 (8.4-10.2) mg/dL Total Bilirubin 0.2 (0.2-1.3) mg/dL AST 22 (17-59) U/L ALT 11 (4-49) U/L Alkaline Phosphatase 102 (38-126) U/L Total Protein 7.5 (6.3-8.2) g/dL Albumin 4.2 (3.5-5.0) g/dL Amylase 62 (30-110) U/L Lipase 120 (23-300) U/L Urine Color Yellow Urine Appearance Clear (Clear) Urine pH 6.5 (5.0-8.0) Ur Specific [place] 1.019 (1.001-1.035) Urine Protein Trace H (Negative) Urine Glucose (UA) Negative (Negative) Urine Ketones Negative (Negative) Urine Blood Negative (Negative) Urine Nitrite Negative (Negative) Urine Bilirubin Negative (Negative) Urine Urobilinogen 2.0 (<2.0) mg/dL Ur Leukocyte Esterase Trace H (Negative) Urine RBC 4 (0-5) /hpf Urine WBC 6 H (0-5) /hpf Ur Squamous Epith Cells <1 (0-4) /hpf Urine Mucus Rare H (None) /hpf - Radiology Data Radiology results: report reviewed, image reviewed CT of the abdomen and pelvis: 3 mm obstructing right proximal ureter calculi with mild hydronephrosis. Additional nonobstructing bilateral renal colic. Mild peribronchial thickening may relate to chronic bronchitis in the appropria te clinical setting. Decompressed urinary bladder with wall thickening correlate for possible cystitis. Additional answered all finding as above. Disposition Clinical Impression: Nephrolithiasis, Right flank pain Disposition: HOME SELF-CARE Condition: Stable Instructions (If sedation given, give patient instructions): Abdominal Pain (ED), Kidney Stones (ED) Additional Instructions: Please return to the Emergency Department if symptoms worsen or any other concerns. Increase oral fluids, take Motrin for pain control. Follow-up primary care in 3-5 days. Kidney stone may take several days to pass. Is patient prescribed a controlled substance at d/c from ED?: No Referrals: None,Stated [Primary Care Provider] - 1-2 days Time of Disposition: 19:34
[2020-12-13 17:28] LABS: Anisocytosis Slight; Basophils # (A) 0.1 k/uL (0-0.2); Basophils % (A) 1 %; Eosinophils # (A) 0.3 k/uL (0-0.7); Eosinophils % (A) 3 %; HCT 29.1 % (39.0-53.0); HGB 8.3 gm/dL (13.0-17.5); Hypochromasia Marked; Lymphocytes # (A) 1.3 k/uL (1.0-4.8); Lymphocytes % (A) 15 %; MCH 19.6 pg (25.0-35.0); MCHC 28.6 g/dL (31.0-37.0); MCV 68.5 fL (80.0-100.0); Mean Platelet Volume 6.5; Microcytosis Marked; Monocytes # (A) 0.5 k/uL (0-1.0); Monocytes % (A) 6 %; Neutrophils # (A) 6.6 k/uL (1.3-7.7); Neutrophils % (A) 75 %; Platelet Count 356 k/uL (150-450); Poikilocytosis Slight; RBC 4.24 m/uL (4.30-5.90); RDW 17.2 % (11.5-15.5); WBC 8.8 k/uL (3.8-10.6)
[2020-12-13 17:43] LABS: Albumin 4.2 g/dL (3.5-5.0); Calcium 9.2 mg/dL (8.4-10.2); Potassium 4.6 mmol/L (3.5-5.1); Total Bilirubin 0.2 mg/dL (0.2-1.3); Total Protein 7.5 g/dL (6.3-8.2)
[2020-12-13 17:45] LABS: Appearance,Urine Clear (Clear); Bilirubin,Urine Negative (Negative); Blood,Urine Negative (Negative); Color,Urine Yellow; Glucose,Urine (UA) Negative (Negative); Ketones,Urine Negative (Negative); Leukocyte Esterase,Urine Trace (Negative); Mucus,Urine Rare /hpf; Nitrite,Urine Negative (Negative); PH, Urine 6.5 (5.0-8.0); Protein,Urine Trace (Negative); RBC,Urine 4 /hpf (0-5); Specific Gravity,Urine 1.019 (1.001-1.035); Squamous Epithelial Cell,Urine <1 /hpf (0-4); WBC,Urine 6 /hpf (0-5)
[2020-12-13] MEDS ORDERED: HYDROmorphone 1 MG/ML 1 ML SYRINGE IVP STA (18:50)
--- NOTE | 2020-12-13 19:28 | CT ---
EXAMINATION TYPE: CT abdomen pelvis w con DATE OF EXAM: 12/13/2020 COMPARISON: 06/12/2020. HISTORY: Right flank pain CT DLP: 1064.2 mGycm Automated exposure control for dose reduction was used. TECHNIQUE: Helical acquisition of images was performed from the lung bases through the pelvis. CONTRAST: Performed without Oral Contrast and with IV Contrast, patient injected with 100 mL of Isovue 370. FINDINGS: LUNG BASES: Mild peribronchial thickening with associated chronic mild opacities. LIVER/GB: No acute abnormality is appreciated. Cholecystectomy seen. PANCREAS: No significant abnormality is seen. SPLEEN: No significant abnormality is seen. ADRENALS: No significant abnormality is seen. KIDNEYS: 3 mm obstructing right proximal ureteral calculus with minimal hydronephrosis. Additional 3 mm nonobstructing right lower pole renal calculus and 2 nonobstructing left renal calculi measuring u p to 6 mm. No left hydronephrosis. FREE AIR: No free air is visualized. RETROPERITONEAL ADENOPATHY: None visualized REPRODUCTIVE ORGANS: No significant abnormality is seen URINARY BLADDER: Partially decompressed urinary bladder with wall thickening. PELVIC ADENOPATHY: None visualized. OSSEOUS STRUCTURES: No significant abnormality is seen. BOWEL: No acute abnormality is seen. Small hiatal and fat-containing ventral hernias. Colonic divert iculosis without acute diverticulitis. Surgical clip adjacent to the sigmoid colon seen. OTHER: None . IMPRESSION: 3 MM OBSTRUCTING RIGHT PROXIMAL URETERAL CALCULUS WITH MILD HYDRONEPHROSIS. ADDITIONAL NONOBSTRUCTING BILATERAL RENAL CALCULI. MILD PERIBRONCHIAL THICKENING, MAY RELATE TO CHRONIC BRONCHITIS IN THE APPROPRIATE CLINICAL SETTING. DECOMPRESSED URINARY BLADDER WITH WALL THICKENING. CORRELATE FOR POSSIBLE CYSTITIS. ADDITIONAL INCIDENTAL FINDINGS ABOVE.
[2020-12-13 19:52] VITALS: BP 165/94; PULSE 85; TEMP 98.8
== END 2020-12-13 19:53 | disposition home or self-care (01) ==
LOC: EC 15:03
DX: N13.2 Hydronephrosis with renal and ureteral calculous obstruction (principal); J44.9 Chronic obstructive pulmonary disease, unspecified; G40.909 Epilepsy, unspecified, not intractable, without status epilepticus; F17.200 Nicotine dependence, unspecified, uncomplicated
CPT/HCPCS: 36415; 80053; 82150; 83690; 85025; 81001; 74177; 99284; 96374; 96375; 96376; 96361; J2405; J1170 ×2; Q9967

== ENCOUNTER 2020-12-23 01:40 | Inpatient (IN) | payer OTHER ==
[2020-12-23] MEDS ORDERED: KETOROLAC 15 MG/ML 1 ML VIAL IVP STA (01:57)
[2020-12-23] MEDS ORDERED: SODIUM CHLORIDE 0.9% 1,000 ML IV STA (01:57)
--- NOTE | 2020-12-23 01:59 | ED ---
General Adult HPI <Bentley Lang - Last Filed: 12/23/20 04:47> - General Source: patient, RN notes reviewed Mode of arrival: ambulatory Limitations: no limitations <Jose Juan Uribe - Last Filed: 12/24/20 02:52> - General Chief complaint: Back Pain/Injury Stated complaint: Recheck RT kidney stones Time Seen by Provider: 12/23/20 01:47 - History of Present Illness Initial comments: 60-year-old male with a past medical history of GI bleed, COPD, migraines, seizure disorder presents to the emergency room for a chief complaint of right flank pain. Patient reports this has been ongoing for a week and a half however tonight the pain worsened. States it radiates into his abdomen. Patient denies fevers or chills. States he has been taking [id number] Tylenol but it is not helping right now.Patient has no other complaints at this time including shortness of breath, chest pain, abdominal pain, nausea or vomiting, headache, or visual changes. (Jose Juan Uribe) - Related Data Previous Rx's Medication Instructions Recorded Acetaminophen Tab [Tylenol] 650 mg PO Q4H 6 Days #36 tab 12/13/20 Allergies Allergy/AdvReac Type Severity Reaction Status Date / Time Penicillins Allergy Rash/Hives Verified 12/23/20 06:29 aspirin AdvReac PATIENT Verified 12/23/20 06:29 HAS AN ULCER codeine AdvReac Nausea & Verified 12/23/20 06:29 Vomiting ibuprofen [From Motrin] AdvReac PATIENT Verified 12/23/20 06:29 HAS AN ULCER Review of Systems ROS Other: All systems not noted in ROS Statement are negative. <Bentley Lang - Last Filed: 12/23/20 04:47> ROS Other: All systems not noted in ROS Statement are negative. <Jose Juan Uribe - Last Filed: 12/24/20 02:52> ROS Statement: Those systems with pertinent positive or pertinent negative responses have been documented in the HPI. Past Medical History Past Medical History: COPD, GI Bleed, Seizure Disorder Additional Past Medical History / Comment(s): migraines, last seizure 2001, History of Any Multi-Drug Resistant Organisms: None Reported Past Surgical History: Cholecystectomy, Orthopedic Surgery Additional Past Surgical History / Comment(s): amputation right thumb, skin graft right hand, left testicle removed. Past Anesthesia/Blood Transfusion Reactions: No Reported Reaction Additional Past Anesthesia/Blood Transfusion Reaction / Comment(s): pt has recieved blood transfusion - no reaction Past Psychological History: No Psychological Hx Reported Smoking Status: Current every day smoker Past Alcohol Use History: Rare Past Drug Use History: None Reported - Past Family History Mother History Unknown: Yes Family Medical History: Myocardial Infarction ([place]) Father History Unknown: Yes Family Medical History: Myocardial Infarction ([place]) <Jose Juan Uribe P - Last Filed: 12/24/20 02:52> General Exam Limitations: no limitations General appearance: alert, in no apparent distress Head exam: Present: atraumatic, normocephalic, normal inspection Eye exam: Present: normal appearance, PERRL, EOMI. Absent: scleral icterus, conjunctival injection, periorbital swelling ENT exam: Present: normal exam Neck exam: Present: normal inspection. Absent: tenderness, meningismus, lymphadenopathy Respiratory exam: Present: normal lung sounds bilaterally. Absent: respiratory distress, wheezes, rales, rhonchi, stridor Cardiovascular Exam: Present: regular rate, normal rhythm, normal heart sounds. Absent: systolic murmur, diastolic murmur, rubs, gallop, clicks GI/Abdominal exam: Present: soft, normal bowel sounds. Absent: distended, tenderness, guarding, rebound, rigid Back exam: Present: CVA tenderness (R). Absent: CVA tenderness (L) <Jose Juan Uribe P - Last Filed: 12/24/20 02:52> Course Vital Signs 12/23/20 12/23/20 12/23/20 01:44 02:56 03:00 Temperature 98.3 F Pulse Rate 94 98 71 Respiratory 18 22 20 Rate Blood Pressure 166/93 164/71 164/71 O2 Sat by Pulse 98 97 97 Oximetry 12/23/20 12/23/20 12/23/20 04:00 05:00 06:05 Temperature Pulse Rate 75 64 69 Respiratory 18 22 15 Rate Blood Pressure 147/75 161/87 190/99 O2 Sat by Pulse 97 95 95 Oximetry 12/23/20 12/23/20 12/23/20 06:20 06:32 06:50 Temperature Pulse Rate 53 L 79 78 Respiratory 18 19 18 Rate Blood Pressure 162/63 184/89 148/83 O2 Sat by Pulse 98 Oximetry 12/23/20 12/23/20 12/23/20 07:00 07:34 08:28 Temperature Pulse Rate 80 79 72 Respiratory 16 18 18 Rate Blood Pressure 156/80 144/83 166/66 O2 Sat by Pulse 99 99 99 Oximetry 12/23/20 09:00 Temperature Pulse Rate 77 Respiratory 18 Rate Blood Pressure 158/82 O2 Sat by Pulse 100 Oximetry Medical Decision Making - Lab Data Result diagrams: 12/23/20 02:32 12/23/20 02:32 <Bentley Lang - Last Filed: 12/23/20 04:47> - Lab Data Result diagrams: 12/23/20 23:46 12/23/20 06:31 <Jose Juan Uribe - Last Filed: 12/24/20 02:52> - Medical Decision Making Patient's computed tomography scan from 10 days ago shows a 3 mm obstructing right proximal ureteral calculus with mild hydronephrosis and additional nonobstructing bilateral renal calculi. X-ray obtained today. Vitals are stable. CBC does show anemia which is chronic for patient. CMP unremarkable. Urinalysis is negative. X-rays obtained which showed no acute f indings. CT will be obtained. Care signed out to Dr Lang at 0300 (Jose Juan Uribe) - Lab Data Lab Results 12/23/20 12/23/20 12/23/20 Range/Units 02:32 02:32 02:32 WBC 7.6 (3.8-10.6) k/uL RBC 4.03 L (4.30-5.90) m/uL Hgb 7.8 L (13.0-17.5) gm/dL Hct 27.2 L (39.0-53.0) % MCV 67.5 L (80.0-100.0) fL MCH 19.3 L (25.0-35.0) pg MCHC 28.5 L (31.0-37.0) g/dL RDW 17.4 H (11.5-15.5) % Plt Count 333 (150-450) k/uL MPV 6.6 Neutrophils % 72 % Lymphocytes % 15 % Monocytes % 6 % Eosinophils % 4 % Basophils % 1 % Neutrophils # 5.5 (1.3-7.7) k/uL Lymphocytes # 1.2 (1.0-4.8) k/uL Monocytes # 0.5 (0-1.0) k/uL Eosinophils # 0.3 (0-0.7) k/uL Basophils # 0.1 (0-0.2) k/uL Hypochromasia Marked Poikilocytosis Slight Anisocytosis Slight Microcytosis Marked Sodium 138 (137-145) mmol/L Potassium 4.3 (3.5-5.1) mmol/L Chloride 102 (98-107) mmol/L Carbon Dioxide 29 (22-30) mmol/L Anion Gap 7 mmol/L BUN 13 (9-20) mg/dL Creatinine 1.04 (0.66-1.25) mg/dL Est GFR (CKD-EPI)AfAm 89 (>60 ml/min/1.73 sqM) Est GFR (CKD-EPI)NonAf 77 (>60 ml/min/1.73 sqM) Glucose 118 H (74-99) mg/dL POC Glucose (mg/dL) (75-99) mg/dL POC Glu Iv Technician ID Plasma Lactic Acid Shad (0.7-2.0) mmol/L Calcium 9.6 (8.4-10.2) mg/dL Magnesium (1.6-2.3) mg/dL Iron (65-175) ug/dL TIBC (228-460) ug/dL % Saturation (15.00-50.00) Ferritin (22.0-322.0) ng/mL Total Bilirubin 0.3 (0.2-1.3) mg/dL AST 26 (17-59) U/L ALT 14 (4-49) U/L Alkaline Phosphatase 93 (38-126) U/L Troponin I (0.000-0.034) ng/mL Total Protein 7.5 (6.3-8.2) g/dL Albumin 4.2 (3.5-5.0) g/dL Amylase 62 (30-110) U/L Lipase 150 (23-300) U/L TSH (0.465-4.680) mIU/L Urine Color Light Yellow Urine Appearance Clear (Clear) Urine pH 6.0 (5.0-8.0) Ur Specific [place] 1.008 (1.001-1.035) Urine Protein Negative (Negative) Urine Glucose (UA) Negative (Negative) Urine Ketones Negative (Negative) Urine Blood Negative (Negative) Urine Nitrite Negative (Negative) Urine Bilirubin Negative (Negative) Urine Urobilinogen <2.0 (<2.0) mg/dL Ur Leukocyte Esterase Negative (Negative) Coronavirus (PCR) (Not Detectd) 12/23/20 12/23/20 12/23/20 Range/Units 02:32 05:12 06:04 WBC (3.8-10.6) k/uL RBC (4.30-5.90) m/uL Hgb (13.0-17.5) gm/dL Hct (39.0-53.0) % MCV (80.0-100.0) fL MCH (25.0-35.0) pg MCHC (31.0-37.0) g/dL RDW (11.5-15.5) % Plt Count (150-450) k/uL MPV Neutrophils % % Lymphocytes % % Monocytes % % Eosinophils % % Basophils % % Neutrophils # (1.3-7.7) k/uL Lymphocytes # (1.0-4.8) k/uL Monocytes # (0-1.0) k/uL Eosinophils # (0-0.7) k/uL Basophils # (0-0.2) k/uL Hypochromasia Poikilocytosis Anisocytosis Microcytosis Sodium (137-145) mmol/L Potassium (3.5-5.1) mmol/L Chloride (98-107) mmol/L Carbon Dioxide (22-30) mmol/L Anion Gap mmol/L BUN (9-20) mg/dL Creatinine (0.66-1.25) mg/dL Est GFR (CKD-EPI)AfAm (>60 ml/min/1.73 sqM) Est GFR (CKD-EPI)NonAf (>60 ml/min/1.73 sqM) Glucose (74-99) mg/dL POC Glucose (mg/dL) 212 H (75-99) mg/dL POC Glu Iv Technician ID Sachin Perdomo Plasma Lactic Acid Shad (0.7-2.0) mmol/L Calcium (8.4-10.2) mg/dL Magnesium (1.6-2.3) mg/dL Iron 13 L (65-175) ug/dL TIBC 392 (228-460) ug/dL % Saturation 3.32 L (15.00-50.00) Ferritin 3.8 L (22.0-322.0) ng/mL Total Bilirubin (0.2-1.3) mg/dL AST (17-59) U/L ALT (4-49) U/L Alkaline Phosphatase (38-126) U/L Troponin I (0.000-0.034) ng/mL Total Protein (6.3-8.2) g/dL Albumin (3.5-5.0) g/dL Amylase (30-110) U/L Lipase (23-300) U/L TSH 3.400 (0.465-4.680) mIU/L Urine Color Urine Appearance (Clear) Urine pH (5.0-8.0) Ur Specific [place] (1.001-1.035) Urine Protein (Negative) Urine Glucose (UA) (Negative) Urine Ketones (Negative) Urine Blood (Negative) Urine Nitrite (Negative) Urine Bilirubin (Negative) Urine Urobilinogen (<2.0) mg/dL Ur Leukocyte Esterase (Negative) Coronavirus (PCR) Not Detected (Not Detectd) 12/23/20 12/23/20 12/23/20 Range/Units 06:31 06:31 06:31 WBC 8.6 (3.8-10.6) k/uL RBC 3.58 L (4.30-5.90) m/uL Hgb 6.7 L* (13.0-17.5) gm/dL Hct 25.0 L (39.0-53.0) % MCV 69.7 L (80.0-100.0) fL MCH 18.7 L (25.0-35.0) pg MCHC 26.8 L (31.0-37.0) g/dL RDW 17.3 H (11.5-15.5) % Plt Count 310 (150-450) k/uL MPV 6.4 Neutrophils % 81 % Lymphocytes % 11 % Monocytes % 4 % Eosinophils % 2 % Basophils % 1 % Neutrophils # 7.0 (1.3-7.7) k/uL Lymphocytes # 0.9 L (1.0-4.8) k/uL Monocytes # 0.4 (0-1.0) k/uL Eosinophils # 0.2 (0-0.7) k/uL Basophils # 0.1 (0-0.2) k/uL Hypochromasia Marked Poikilocytosis Slight Anisocytosis Slight Microcytosis Marked Sodium 138 (137-145) mmol/L Potassium 3.9 (3.5-5.1) mmol/L Chloride 110 H (98-107) mmol/L Carbon Dioxide 22 (22-30) mmol/L Anion Gap 6 mmol/L BUN 11 (9-20) mg/dL Creatinine 0.78 (0.66-1.25) mg/dL Est GFR (CKD-EPI)AfAm >90 (>60 ml/min/1.73 sqM) Est GFR (CKD-EPI)NonAf >90 (>60 ml/min/1.73 sqM) Glucose 170 H (74-99) mg/dL POC Glucose (mg/dL) (75-99) mg/dL POC Glu Iv Technician ID Plasma Lactic Acid Shad 1.1 (0.7-2.0) mmol/L Calcium 8.0 L (8.4-10.2) mg/dL Magnesium 1.6 (1.6-2.3) mg/dL Iron (65-175) ug/dL TIBC (228-460) ug/dL % Saturation (15.00-50.00) Ferritin (22.0-322.0) ng/mL Total Bilirubin 0.3 (0.2-1.3) mg/dL AST 29 (17-59) U/L ALT 14 (4-49) U/L Alkaline Phosphatase 81 (38-126) U/L Troponin I (0.000-0.034) ng/mL Total Protein 6.0 L (6.3-8.2) g/dL Albumin 3.2 L (3.5-5.0) g/dL Amylase (30-110) U/L Lipase (23-300) U/L TSH (0.465-4.680) mIU/L Urine Color Urine Appearance (Clear) Urine pH (5.0-8.0) Ur Specific [place] (1.001-1.035) Urine Protein (Negative) Urine Glucose (UA) (Negative) Urine Ketones (Negative) Urine Blood (Negative) Urine Nitrite (Negative) Urine Bilirubin (Negative) Urine Urobilinogen (<2.0) mg/dL Ur Leukocyte Esterase (Negative) Coronavirus (PCR) (Not Detectd) 12/23/20 Range/Units 06:31 WBC (3.8-10.6) k/uL RBC (4.30-5.90) m/uL Hgb (13.0-17.5) gm/dL Hct (39.0-53.0) % MCV (80.0-100.0) fL MCH (25.0-35.0) pg MCHC (31.0-37.0) g/dL RDW (11.5-15.5) % Plt Count (150-450) k/uL MPV Neutrophils % % Lymphocytes % % Monocytes % % Eosinophils % % Basophils % % Neutrophils # (1.3-7.7) k/uL Lymphocytes # (1.0-4.8) k/uL Monocytes # (0-1.0) k/uL Eosinophils # (0-0.7) k/uL Basophils # (0-0.2) k/uL Hypochromasia Poikilocytosis Anisocytosis Microcytosis Sodium (137-145) mmol/L Potassium (3.5-5.1) mmol/L Chloride (98-107) mmol/L Carbon Dioxide (22-30) mmol/L Anion Gap mmol/L BUN (9-20) mg/dL Creatinine (0.66-1.25) mg/dL Est GFR (CKD-EPI)AfAm (>60 ml/min/1.73 sqM) Est GFR (CKD-EPI)NonAf (>60 ml/min/1.73 sqM) Glucose (74-99) mg/dL POC Glucose (mg/dL) (75-99) mg/dL POC Glu Iv Technician ID Plasma Lactic Acid Shad (0.7-2.0) mmol/L Calcium (8.4-10.2) mg/dL Magnesium (1.6-2.3) mg/dL Iron (65-175) ug/dL TIBC (228-460) ug/dL % Saturation (15.00-50.00) Ferritin (22.0-322.0) ng/mL Total Bilirubin (0.2-1.3) mg/dL AST (17-59) U/L ALT (4-49) U/L Alkaline Phosphatase (38-126) U/L Troponin I <0.012 (0.000-0.034) ng/mL Total Protein (6.3-8.2) g/dL Albumin (3.5-5.0) g/dL Amylase (30-110) U/L Lipase (23-300) U/L TSH (0.465-4.680) mIU/L Urine Color Urine Appearance (Clear) Urine pH (5.0-8.0) Ur Specific [place] (1.001-1.035) Urine Protein (Negative) Urine Glucose (UA) (Negative) Urine Ketones (Negative) Urine Blood (Negative) Urine Nitrite (Negative) Urine Bilirubin (Negative) Urine Urobilinogen (<2.0) mg/dL Ur Leukocyte Esterase (Negative) Coronavirus (PCR) (Not Detectd) Disposition Is patient prescribed a controlled substance at d/c from ED?: No <Bentley Lang - Last Filed: 12/23/20 04:47> Is patient prescribed a controlled substance at d/c from ED?: No Time of Disposition: 03:11 <Jose Juan Uribe P - Last Filed: 12/24/20 02:52> Clinical Impression: Flank pain, Nephrolithiasis, Right flank pain, Right ureteral calculus Disposition: ADMITTED IP TO THIS HOSP Condition: Good
[2020-12-23 02:47] LABS: Anisocytosis Slight; Appearance,Urine Clear (Clear); Basophils # (A) 0.1 k/uL (0-0.2); Basophils % (A) 1 %; Bilirubin,Urine Negative (Negative); Blood,Urine Negative (Negative); Color,Urine Light Yellow; Eosinophils # (A) 0.3 k/uL (0-0.7); Eosinophils % (A) 4 %; Glucose,Urine (UA) Negative (Negative); HCT 27.2 % (39.0-53.0); HGB 7.8 gm/dL (13.0-17.5); Hypochromasia Marked; Ketones,Urine Negative (Negative); Leukocyte Esterase,Urine Negative (Negative); Lymphocytes # (A) 1.2 k/uL (1.0-4.8); Lymphocytes % (A) 15 %; MCH 19.3 pg (25.0-35.0); MCHC 28.5 g/dL (31.0-37.0); MCV 67.5 fL (80.0-100.0); Mean Platelet Volume 6.6; Microcytosis Marked; Monocytes # (A) 0.5 k/uL (0-1.0); Monocytes % (A) 6 %; Neutrophils # (A) 5.5 k/uL (1.3-7.7); Neutrophils % (A) 72 %; Nitrite,Urine Negative (Negative); Platelet Count 333 k/uL (150-450); Poikilocytosis Slight; Protein,Urine Negative (Negative); RBC 4.03 m/uL (4.30-5.90); RDW 17.4 % (11.5-15.5); Specific Gravity,Urine 1.008 (1.001-1.035); Urobilinogen,Urine <2.0 mg/dL (<2.0); WBC 7.6 k/uL (3.8-10.6)
[2020-12-23 02:56] LABS: Albumin 4.2 g/dL (3.5-5.0); Calcium 9.6 mg/dL (8.4-10.2); Potassium 4.3 mmol/L (3.5-5.1); Total Bilirubin 0.3 mg/dL (0.2-1.3); Total Protein 7.5 g/dL (6.3-8.2)
[2020-12-23] MEDS ORDERED: HYDROmorphone 1 MG/ML 1 ML SYRINGE IVP STA ×2 (03:04→14:36)
--- NOTE | 2020-12-23 03:07 | XR ---
EXAM: XR Abdomen, 1 View CLINICAL HISTORY: ITS.REASON XR Reason: abdominal pain TECHNIQUE: Frontal supine view of the abdomen/pelvis. COMPARISON: 06/11/2020 FINDINGS: Gastrointestinal tract: Copious amounts of stool. No dilation. Bones/joints: No acute fracture. No dislocation. IMPRESSION: No acute findings.
--- NOTE | 2020-12-23 04:02 | CT ---
EXAM: CT Abdomen and Pelvis Without Intravenous Contrast CLINICAL HISTORY: ITS.REASON CT Reason: pain TECHNIQUE: Axial computed tomography images of the abdomen and pelvis without intravenous contrast. CTDI is 12.17 mGy and DLP is 674.9 mGy-cm. This CT exam was performed using one or more of the following dose reduction techniques: automated exposure control, adjustment of the mA and/or kV according to patient size, and/or use of iterative reconstruction technique. COMPARISON: 12/13/2020 IMPRESSION: 1. Relatively similar right mild hydroureteronephrosis secondary to a 5 mm stone in the proximal ureter. 2. Nonobstructive nephrolithiasis bilaterally. 3. Unchanged chronic lung findings with areas of airway thickening. 4. Colonic diverticulosis.
[2020-12-23] MEDS ORDERED: traMADol 50 MG TAB PO STA (04:03)
[2020-12-23] MEDS ORDERED: traMADol 50 MG STARTER PACK 3 TAB BTL PO STA (04:03)
[2020-12-23] MEDS ORDERED: TAMSULOSIN 0.4 MG CAP.ER.24H PO STA (04:03)
[2020-12-23] MEDS ORDERED: ONDANSETRON 4 MG/2 ML VIAL IVP STA (04:40)
[2020-12-23] MEDS ORDERED: SODIUM CHLORIDE 0.9% 1,000 ML IV ONE ×2 (04:40→04:46)
[2020-12-23 06:07] LABS: Glucose,Whole Blood 212 mg/dL (75-99)
[2020-12-23] MEDS ORDERED: ATROPINE SULFATE 0.1 MG/ML 10ML SYRINGE IV STA (06:28)
[2020-12-23 06:52] LABS: Anisocytosis Slight; Basophils # (A) 0.1 k/uL (0-0.2); Basophils % (A) 1 %; Eosinophils # (A) 0.2 k/uL (0-0.7); Eosinophils % (A) 2 %; Hypochromasia Marked; Lymphocytes # (A) 0.9 k/uL (1.0-4.8); Lymphocytes % (A) 11 %; MCH 18.7 pg (25.0-35.0); MCHC 26.8 g/dL (31.0-37.0); MCV 69.7 fL (80.0-100.0); Mean Platelet Volume 6.4; Microcytosis Marked; Monocytes # (A) 0.4 k/uL (0-1.0); Monocytes % (A) 4 %; Neutrophils % (A) 81 %; Platelet Count 310 k/uL (150-450); Poikilocytosis Slight; RBC 3.58 m/uL (4.30-5.90); RDW 17.3 % (11.5-15.5); WBC 8.6 k/uL (3.8-10.6)
[2020-12-23 06:55] LABS: HGB 6.7 gm/dL (13.0-17.5)
--- NOTE | 2020-12-23 07:03 | P.HPIM ---
History of Present Illness H&P Date: 12/23/20 Chief Complaint: flank pain 60 -year-old male with history of repeated GI bleeding, renal calculi, COPD, history of seizure Patient comes in due to worsening right flank pain of one and a half week he claims that he was taking some Tylenol was helping with his pain he is aware of having renal calculi from prior admissions. However his pain got worse tonight described it as 8 out of 10 colicky severe pain radiating to the abdomen for which she decided to come to the hospital for evaluation he denies any further episodes of GI bleeding denies any diarrhea or changes in his bowel habits denies any other urinary symptoms denies any nausea vomiting fevers or chills While being monitored in the ED he was noted to have f sinus bradycardia followed with frequent episodes of prolonged sinus pauses initially seemed to be asymptomatic patient denies any chest pain or trouble breathing denies any dizziness or lightheadedness however this was suddenly followed by a prolonged sinus positive to the point that we almost started CPR when patient suddenly upon moving him regained consciousness and regained his pulse so CPR was not initiated. bus aide described similar scenario earlier when they moved the patient to the trauma bay. During these episodes again patient denies any chest pain or trouble breathing denies any palpitations denies any dizziness or lig htheadedness. Patient reports history of tonic-clonic seizures last episode was around 2001 no further episodes since then he is currently not on AED Workup in the ED multiple EKGs and cardiac traces rhythm confirmed sinus positives and sinus bradycardia Electrolytes unremarkable CBC showed chronic microcytic anemia Computed tomography scan of the abdomen confirmed right obstructive ureteral ca lculi 5 millimeter in size Review of Systems Pertinent positives as noted in HPI. All other systems were reviewed and are negative Past Medical History Past Medical History: COPD, GI Bleed, Seizure Disorder Additional Past Medical History / Comment(s): migraines, last seizure 2001, History of Any Multi-Drug Resistant Organisms: None Reported Past Surgical History: Cholecystectomy, Orthopedic Surgery Additional Past Surgical History / Comment(s): amputation right thumb, skin graft right hand, left testicle removed. Past Anesthesia/Blood Transfusion Reactions: No Reported Reaction Additional Past Anesthesia/Blood Transfusion Reaction / Comment(s): pt has recieved blood transfusion - no reaction Past Psychological History: No Psychological Hx Reported Smoking Status: Current every day smoker Past Alcohol Use History: Rare Past Drug Use History: None Reported - Past Family History Mother History Unknown: Yes Family Medical History: Myocardial Infarction ([place]) Father History Unknown: Yes Family Medical History: Myocardial Infarction ([place]) Medications and Allergies Home Medications Medication Instructions Recorded Confirmed Type Acetaminophen Tab [Tylenol] 650 mg PO Q4H 6 Days #36 tab 12/13/20 12/23/20 Rx HYDROcodone/APAP 5-325MG [[place] 1 tab PO Q6HR PRN #10 tab 12/23/20 Rx 5-325] Allergies Allergy/AdvReac Type Severity Reaction Status Date / Time Penicillins Allergy Rash/Hives Verified 12/23/20 06:29 aspirin AdvReac PATIENT Verified 12/23/20 06:29 HAS AN ULCER codeine AdvReac Nausea & Verified 12/23/20 06:29 Vomiting ibuprofen [From Motrin] AdvReac PATIENT Verified 12/23/20 06:29 HAS AN ULCER Physical Exam Vitals: Vital Signs Temp Pulse Resp BP Pulse Ox 12/23/20 06:05 69 15 190/99 95 12/23/20 05:00 64 22 161/87 95 12/23/20 04:00 75 18 147/75 97 12/23/20 03:00 71 20 164/71 97 12/23/20 02:56 98 22 164/71 97 12/23/20 01:44 98.3 F 94 18 166/93 98 Intake and Output 12/22/20 12/22/20 12/23/20 14:59 22:59 06:59 Other: Weight 83.915 kg Constitutional: No acute distress, conversant, pleasant Eyes: Anicteric sclerae, moist conjunctiva, Pupils equal round reactive to light ENMT: NC/AT Oropharynx clear, no erythema, or exudates Neck: Supple, FROM, no masses, or JVD No carotid bruits No thyromegaly Lungs: Good breath sounds bilaterally with scattered end expiratory wheezing Clear to percussion Normal respiratory effort, no accessory muscle use Cardiovascular: Heart regular in rate and rhythm, No murmurs, gallops, or rubs No peripheral edema Abdominal: Soft, discomfort to deep palpation and percussion of the right costovertebral angle Nontender, no guarding, rebound or rigidity Abdomen moving with respiration Normoactive bowel sounds No hepatomegaly, No splenomegaly No palpable mass No abdominal wall hernia noted Skin: Normal temperature, tone, texture, turgor No induration No subcutaneous nodules No rash, lesions No ulcers Extremities: No digital cyanosis No clubbing Pedal pulses intact and symmetrical Radial pulses intact and symmetrical No calf tenderness Psychiatric: Alert and oriented to person, place and time Appropriate affect fair judgement Neuro Muscles Strength 5/5 in all 4 extremities Sensation to light touch grossly present throughout Cranial nerves II-XII grossly intact No focal sensory deficits Lymphatics: no palpable cervical or supraclavicular , or inguinal lymph n odes Results CBC & Chem 7: 12/23/20 02:32 12/23/20 02:32 Labs: Abnormal Lab Results - Last 24 Hours (Table) 12/23/20 12/23/20 12/23/20 Range/Units 02:32 02:32 06:04 RBC 4.03 L (4.30-5.90) m/uL Hgb 7.8 L (13.0-17.5) gm/dL Hct 27.2 L (39.0-53.0) % MCV 67.5 L (80.0-100.0) fL MCH 19.3 L (25.0-35.0) pg MCHC 28.5 L (31.0-37.0) g/dL RDW 17.4 H (11.5-15.5) % Glucose 118 H (74-99) mg/dL POC Glucose (mg/dL) 212 H (75-99) mg/dL Assessment and Plan Assessment: Symptomatic sinus pauses with sinus bradycardia Case discussed with cardiology will evaluate for pacemaker Dopamine drip Admission to the ICU for close monitoring manager monitoring consult Pulmonary for ICU care obstructive right renal calculi pain control urology evaluation flomax gentle IVF hydration chronic microcytic anemia iron studies denies current GI bleeding monitor hgb transfuse for Hgb <7 COPD compensated , not on home oxygen PRN duoneb history of seizure history of GI bleeding Check morning labs Trend troponins Check electrolytes and magnesium Check iron studies CODE STATUS:full code DVT prophylaxis: mechanical Discussed with: Patient, ER, RN Anticipated length of stay > than [address]: pending clinical course, home A total of 75 minutes was spent on the care of this complex patient more than 50% of the time was spent in counseling and care coordination.
[2020-12-23 07:04] LABS: ALT 14 U/L (4-49); AST 29 U/L (17-59); African American GFR (CKD) >90 (>60 ml/min/1.73 sqM); Albumin 3.2 g/dL (3.5-5.0); Alkaline Phosphatase 81 U/L (38-126); Anion Gap 6 mmol/L; Blood Urea Nitrogen 11 mg/dL (9-20); Carbon Dioxide 22 mmol/L (22-30); Chloride 110 mmol/L (98-107); Glucose 170 mg/dL (74-99); Magnesium 1.6 mg/dL (1.6-2.3); Non-African American GFR(CKD) >90 (>60 ml/min/1.73 sqM); Potassium 3.9 mmol/L (3.5-5.1); Sodium 138 mmol/L (137-145); Total Bilirubin 0.3 mg/dL (0.2-1.3)
[2020-12-23] MEDS ORDERED: IV FLUID CONTINUATION 1,000 ML IV ONE (09:40)
[2020-12-23] MEDS ORDERED: IOPAMIDOL-250 50ML BTL IV ONE (10:25)
[2020-12-23] MEDS ORDERED: LIDOCAINE 1% INJ 10MG/ML (20 ML MDV) ONE ×2 (10:44→10:45)
[2020-12-23] MEDS ORDERED: fentaNYL (PF) 50 MCG/ML 2 ML AMP ONE (10:44)
[2020-12-23] MEDS ORDERED: CLINDAMYCIN 600 MG in SODIUM CHLORIDE 0.9% 250 ML IRRIGATION PRN (11:00)
[2020-12-23] MEDS ORDERED: CLINDAMYCIN 900 MG in DEXTROSE 5% IN WATER 50 ML IVPB PRN ×2 (11:00)
[2020-12-23] MEDS ORDERED: fentaNYL (PF) 50 MCG/ML 2 ML AMP IV ONE (11:05)
[2020-12-23] MEDS ORDERED: MIDAZOLAM 2 MG/2 ML VIAL IV ONE (11:06)
[2020-12-23] MEDS ORDERED: LIDOCAINE 1% INJ 10MG/ML (20 ML MDV) SQ ONE (11:28)
--- NOTE | 2020-12-23 12:04 | ECHOF ---
Referral Reason: MEASUREMENTS -------- HEIGHT: 180.3 cm WEIGHT: 83.9 kg BP: RVIDd: 2.3 cm (< 3.3) IVSd: 1.7 cm (0.6 - 1.1) LVIDd: 4.6 cm (3.9 - 5.3) LVPWd: 1.5 cm (0.6 - 1.1) IVSs: 2.1 cm LVIDs: 2.8 cm LVPWs: 2.0 cm LAESV Index (A-L): 24.99 ml/m Ao Diam: 3.6 cm (2.0 - 3.7) AV Cusp: 2.4 cm (1.5 - 2.6) LA Diam: 3.4 cm (2.7 - 3.8) MV EXCURSION: 23.970 mm (> 18.000) MV EF SLOPE: 99 mm/s (70 - 150) EPSS: 0.6 cm MV E Haseeb: 0.87 m/s MV DecT: 177 ms MV A Haseeb: 1.06 m/s MV E/A Ratio: 0.82 RAP: 5.00 mmHg RVSP: 11.59 mmHg FINDINGS -------- This was a technically good study. The left ventricular size is normal. There is moderate concentric left ventricular hypertrophy. O verall left ventricular systolic function is normal with, an EF between 55 - 60 %. The diastolic fi lling pattern is normal for the age of the patient 12.94. The right ventricle is normal in size. The left atrial size is normal. Normal LA size by volume 22+/-6 ml/m2. The right atrial size is normal. The aortic valve is trileaflet and appears structurally normal. The mitral valve is normal. There is trace mitral regurgitation. The tricuspid valve appears structurally normal. Trace tricuspid regurgitation present. Right jennifer tricular systolic pressure is normal at < 35 mmHg. There is no pulmonic regurgitation present. The aortic root size is normal. Normal inferior vena cava with normal inspiratory collapse consistent with estimated right atrial pre ssure of 5 mmHg. There is no pericardial effusion. CONCLUSIONS -------- 1. The left ventricular size is normal. 2. There is moderate concentric left ventricular hypertrophy. 3. Overall left ventricular systolic function is normal with, an EF between 55 - 60 %. 4. The diastolic filling pattern is normal for the age of the patient 12.94 5. There is trace mitral regurgitation. 6. Trace tricuspid regurgitation present. 7. There is no pericardial effusion. TALENT DIRECTOR: Susan Myles RDCS
[2020-12-23] MEDS ORDERED: ACETAMINOPHEN TAB 325 MG TAB PO PRN (12:58)
[2020-12-23] MEDS ORDERED: ACETAMINOPHEN IV (For NPO) 1,000 MG in EMPTY BAG 1 BAG IVPB ONE (12:58)
--- NOTE | 2020-12-23 13:13 | P.PCN ---
Preoperative Diagnosis: Patient underwent EP procedure under conscious sedation/moderate sedation, monitoring of the level of consciousness and physiologic parameters including but not limited to vital signs and oxygenation. Patient tolerated the procedure well without any acute complications. Start time: 1125 Stop time: 1228
--- NOTE | 2020-12-23 13:44 | CE ---
CARDIAC ELECTROPHYSIOLOGY REPORT Mr. Mccarthy is a 60-year-old male patient who presented with paroxysmal AV block. He had a syncopal spell at home. He came to the ER here. He had yet another episode of syncope while lying in bed associated with paroxysmal AV block with a very long pause. He recovered spontaneously, was started on IV dopamine and later brought for dual- chamber pacemaker. He is not on any AV jing blocking drugs or any cardiac medications at all. His 2D echo showed normal LV size and systolic function. Patient was brought to the EP lab in a fasting state. Written informed consent was obtained prior to the procedure. The left shoulder area was prepped and draped as per protocol. 1% lidocaine was used for local anesthesia. A 4 cm incision was made parallel to the deltopectoral groove, about 1.5 cm medial to it. The incision was carried down to the level of the pectoralis muscle. A subfascial pocket was made. Hemostasis was assured. The left axillary vein was accessed at 2 separate points under fluoroscopy and via appropriately-sized introducer sheaths, 2 leads were positioned in the right heart. The atrial lead was a Medtronic model #5076, 52 cm length, serial number [id number]. This was positioned in the right atrial appendage. P waves are 1.3 mV, pacing impedance 551 ohms, pacing threshold 0.75 V at 0.4 milliseconds. 10 V test was negative. The RV lead was screwed in the RV septum. R-waves 15 mV. Pacing impedance 836 ohms, pacing threshold 0.5 V at 0.4 milliseconds. 10 V test negative. Both leads were secured to the underlying pectoralis fascia using 2 nonabsorbable sutures. Pocket was irrigated with antibiotic solution. Leads were connected to the generator ([employer] [place] SDR MRI model number W3D01 serial number [id number]). The lead and the generator were then placed in subfascial pocket and the wound was closed in 3 layers and dressed per protocol. The device was programmed to AAIR to DDDR 50-130 ppm. RESULTS: Successful dual-chamber pacemaker implantation for paroxysmal AV block associated with syncope. Please see separate dictation for conscious sedation. MMODL / IJN: [id number] /
--- NOTE | 2020-12-23 14:28 | XR ---
EXAMINATION TYPE: XR chest 1V portable DATE OF EXAM: 12/23/2020 HISTORY: Shortness of breath. COMPARISON: 06/01/20 TECHNIQUE: Single view of the chest is submitted. FINDINGS: Demonstrated are scattered senescent parenchymal change. There is no evidence for focal infiltrate. The heart is stable. Hilar and mediastinal structures are within normal limits. Degenerative changes are seen of the dorsal spine. IMPRESSION: 1. Chronic changes without evidence for acute pulmonary disease.
[2020-12-23] MEDS ORDERED: HYDROmorphone 1 MG/ML 1 ML SYRINGE ONE (14:37)
[2020-12-23 16:04] LABS: % Iron Saturation 3.32 (15.00-50.00); Ferritin 3.8 ng/mL (22.0-322.0)
[2020-12-23] MEDS ORDERED: CLINDAMYCIN 900 MG in DEXTROSE 5% IN WATER 50 ML IVPB SCH ×2 (17:00)
[2020-12-23] MEDS: DOPamine DRIP 800 MG in WATER FOR INJECTION 1 250ML.BAG IV SCH (18:38)
[2020-12-23] MEDS: PANTOPRAZOLE 40 MG/10 ML VIAL IVP SCH (18:47)
[2020-12-23] MEDS: CLINDAMYCIN 150 MG CAP PO SCH (19:50)
[2020-12-23] MEDS ORDERED: ONDANSETRON 4 MG/2 ML VIAL IVP PRN (20:04)
[2020-12-23] MEDS: NICOTINE 14MG/24HR PATCH TRANSDERM SCH (20:25)
[2020-12-23] MEDS: HYDROcodone/APAP 5-325MG 1 EACH TAB PO PRN (20:29)
--- NOTE | 2020-12-23 22:32 | P.GSCN ---
History of Present Illness Consult date: 12/23/20 Reason for Consult: right sided ureteral stone History of present illness: This is a 60 yo male that presented to the ED with right sided flank pain secondary to a 5mm right sided proximal stone. He was initially diagnosed with right sided stone approximately one week ago, his pain was initially controlled, but got worse yesterday and he presented to the ED with flank pain. CT was obtained which showed a 5 mm right sided ureteral stone and left sided non- obstructive renal calculi. In the ED he developed sinus bradycardia followed with frequent episodes of prolonged sinus pauses. He underwent Pacemaker placement by cardiology today. at this time he is having minimal flank pain, denies any N/V. Denies any dysuria/gross hematuria. No previous hx of stones. His UA is negative, Creat at 0.78. Review of Systems - Constitutional Denies fever, Denies weight loss - EENT Ears, nose, mouth and throat: Denies dysphagia - Cardiovascular Reports syncope, Denies shortness of breath - Respiratory Denies cough, Denies 7 - Gastrointestinal Reports as per HPI - Genitourinary Reports flank pain, Reports kidney stones, Denies hematuria - Integumentary Denies rash, Denies unusual bruising - Neurological Denies headaches, Denies syncope Past Medical History Past Medical History: COPD, GI Bleed, Osteoarthritis (OA), Seizure Disorder, Syncope Additional Past Medical History / Comment(s): Lower GI bleed, Yepez's esophagus, hiatal hernia, gastritis, gastric ulcer, anemia, diverticular disease, R hip arthritis/pain and "pops out sometimes", L knee pain/"gives out sometimes", miigraines, last seizure 2001, History of Any Multi-Drug Resistant Organisms: None Reported Past Surgical History: Cholecystectomy, Orthopedic Surgery Additional Past Surgical History / Comment(s): EGDs, colonoscopy, R thumb amputation, skin graft right hand, left testicle removed d/t torsion Past Anesthesia/Blood Transfusion Reactions: No Reported Reaction Additional Past Anesthesia/Blood Transfusion Reaction / Comm: pt has recieved blood transfusion - no reaction Smoking Status: Current every day smoker - Past Family History Mother History Unknown: Yes Family Medical History: Myocardial Infarction (SC) Additional Family Medical History / Comment(s): Mother had a SC about age 50 yrs. She in her 80s. Father History Unknown: Yes Family Medical History: Myocardial Infarction (SC) Additional Family Medical History / Comment(s): Father had a SC at about age 55 yrs. He in his early 80s. Medications and Allergies Home Medications Medication Instructions Recorded Confirmed Type Acetaminophen Tab [Tylenol] 650 mg PO Q4H 6 Days #36 tab 12/13/20 12/23/20 Rx HYDROcodone/APAP 5-325MG [[place] 1 tab PO Q6HR PRN #10 tab 12/23/20 Rx 5-325] Allergies Allergy/AdvReac Type Severity Reaction Status Date / Time Penicillins Allergy Rash/Hives Verified 12/23/20 06:29 aspirin AdvReac PATIENT Verified 12/23/20 06:29 HAS AN ULCER codeine AdvReac Nausea & Verified 12/23/20 06:29 Vomiting ibuprofen [From Motrin] AdvReac PATIENT Verified 12/23/20 06:29 HAS AN ULCER Surgical - Exam Vital Signs Temp Pulse Resp BP Pulse Ox 98.3 F 94 18 166/93 98 12/23/20 01:44 12/23/20 01:44 12/23/20 01:44 12/23/20 01:44 12/23/20 01:44 - General no distress, no pain - Eyes PERRL, normal ocular movement - ENT normal nares, normal mucosa - Respiratory normal expansion, normal respiratory effort - Psychiatric oriented to time, oriented to person, oriented to place, speech is normal Results - Labs 12/23/20 06:31 12/23/20 06:31 Abnormal Lab Results - Last 24 Hours (Table) 12/23/20 12/23/20 12/23/20 Range/Units 02:32 02:32 02:32 RBC 4.03 L (4.30-5.90) m/uL Hgb 7.8 L (13.0-17.5) gm/dL Hct 27.2 L (39.0-53.0) % MCV 67.5 L (80.0-100.0) fL MCH 19.3 L (25.0-35.0) pg MCHC 28.5 L (31.0-37.0) g/dL RDW 17.4 H (11.5-15.5) % Lymphocytes # (1.0-4.8) k/uL Chloride (98-107) mmol/L Glucose 118 H (74-99) mg/dL POC Glucose (mg/dL) (75-99) mg/dL Calcium (8.4-10.2) mg/dL Iron 13 L (65-175) ug/dL % Saturation 3.32 L (15.00-50.00) Ferritin 3.8 L (22.0-322.0) ng/mL Total Protein (6.3-8.2) g/dL Albumin (3.5-5.0) g/dL Crossmatch 12/23/20 12/23/20 12/23/20 Range/Units 06:04 06:31 06:31 RBC 3.58 L (4.30-5.90) m/uL Hgb 6.7 L* (13.0-17.5) gm/dL Hct 25.0 L (39.0-53.0) % MCV 69.7 L (80.0-100.0) fL MCH 18.7 L (25.0-35.0) pg MCHC 26.8 L (31.0-37.0) g/dL RDW 17.3 H (11.5-15.5) % Lymphocytes # 0.9 L (1.0-4.8) k/uL Chloride 110 H (98-107) mmol/L Glucose 170 H (74-99) mg/dL POC Glucose (mg/dL) 212 H (75-99) mg/dL Calcium 8.0 L (8.4-10.2) mg/dL Iron (65-175) ug/dL % Saturation (15.00-50.00) Ferritin (22.0-322.0) ng/mL Total Protein 6.0 L (6.3-8.2) g/dL Albumin 3.2 L (3.5-5.0) g/dL Crossmatch 12/23/20 Range/Units 06:55 RBC (4.30-5.90) m/uL Hgb (13.0-17.5) gm/dL Hct (39.0-53.0) % MCV (80.0-100.0) fL MCH (25.0-35.0) pg MCHC (31.0-37.0) g/dL RDW (11.5-15.5) % Lymphocytes # (1.0-4.8) k/uL Chloride (98-107) mmol/L Glucose (74-99) mg/dL POC Glucose (mg/dL) (75-99) mg/dL Calcium (8.4-10.2) mg/dL Iron (65-175) ug/dL % Saturation (15.00-50.00) Ferritin (22.0-322.0) ng/mL Total Protein (6.3-8.2) g/dL Albumin (3.5-5.0) g/dL Crossmatch See Detail Diabetes panel 12/23/20 12/23/20 Range/Units 02:32 06:31 Sodium 138 138 (137-145) mmol/L Potassium 4.3 3.9 (3.5-5.1) mmol/L Chloride 102 110 H (98-107) mmol/L Carbon Dioxide 29 22 (22-30) mmol/L BUN 13 11 (9-20) mg/dL Creatinine 1.04 0.78 (0.66-1.25) mg/dL Glucose 118 H 170 H (74-99) mg/dL Calcium 9.6 8.0 L (8.4-10.2) mg/dL AST 26 29 (17-59) U/L ALT 14 14 (4-49) U/L Alkaline Phosphatase 93 81 (38-126) U/L Total Protein 7.5 6.0 L (6.3-8.2) g/dL Albumin 4.2 3.2 L (3.5-5.0) g/dL Thyroid panel 12/23/20 Range/Units 02:32 TSH 3.400 (0.465-4.680) mIU/L Calcium panel 12/23/20 12/23/20 Range/Units 02:32 06:31 Calcium 9.6 8.0 L (8.4-10.2) mg/dL Albumin 4.2 3.2 L (3.5-5.0) g/dL Pituitary panel 12/23/20 12/23/20 12/23/20 Range/Units 02:32 02:32 06:31 Sodium 138 138 (137-145) mmol/L Potassium 4.3 3.9 (3.5-5.1) mmol/L Chloride 102 110 H (98-107) mmol/L Carbon Dioxide 29 22 (22-30) mmol/L BUN 13 11 (9-20) mg/dL Creatinine 1.04 0.78 (0.66-1.25) mg/dL Glucose 118 H 170 H (74-99) mg/dL Calcium 9.6 8.0 L (8.4-10.2) mg/dL TSH 3.400 (0.465-4.680) mIU/L Adrenal panel 12/23/20 12/23/20 Range/Units 02:32 06:31 Sodium 138 138 (137-145) mmol/L Potassium 4.3 3.9 (3.5-5.1) mmol/L Chloride 102 110 H (98-107) mmol/L Carbon Dioxide 29 22 (22-30) mmol/L BUN 13 11 (9-20) mg/dL Creatinine 1.04 0.78 (0.66-1.25) mg/dL Glucose 118 H 170 H (74-99) mg/dL Calcium 9.6 8.0 L (8.4-10.2) mg/dL Total Bilirubin 0.3 0.3 (0.2-1.3) mg/dL AST 26 29 (17-59) U/L ALT 14 14 (4-49) U/L Alkaline Phosphatase 93 81 (38-126) U/L Total Protein 7.5 6.0 L (6.3-8.2) g/dL Albumin 4.2 3.2 L (3.5-5.0) g/dL - Imaging CT scan - abdomen: image reviewed (5mm right sided proximal stone) Assessment and Plan Assessment: 60 yo male with hx of 5mm right sided proximal stone, he underwent Pacemaker placement by Cardiology today due paroxysmal AV block. At this time he is having minimal symptoms from his stone. UA negative, no leucocytosis, creat at baseline. Given his limited symptoms and recent cardiac issues, will continue with trial of passage, He was agreeable with that plan. Will continue to follow. -Strain all urine -will reassess tomorrow, if pain still controlled ok for discharge from urology standpoint, can F/U as an outpatient in 2-3 weeks
[2020-12-24 00:08] LABS: Anisocytosis Slight; Basophils # (A) 0.1 k/uL (0-0.2); Basophils % (A) 1 %; Eosinophils # (A) 0.2 k/uL (0-0.7); Eosinophils % (A) 3 %; HCT 24.7 % (39.0-53.0); HGB 7.2 gm/dL (13.0-17.5); Hypochromasia Marked; Lymphocytes # (A) 0.8 k/uL (1.0-4.8); Lymphocytes % (A) 10 %; MCH 20.6 pg (25.0-35.0); MCHC 29.2 g/dL (31.0-37.0); MCV 70.6 fL (80.0-100.0); Mean Platelet Volume 6.6; Microcytosis Marked; Monocytes # (A) 0.5 k/uL (0-1.0); Monocytes % (A) 7 %; Neutrophils # (A) 5.7 k/uL (1.3-7.7); Neutrophils % (A) 79 %; Platelet Count 255 k/uL (150-450); Poikilocytosis Moderate; RBC 3.49 m/uL (4.30-5.90); RDW 18.1 % (11.5-15.5); WBC 7.2 k/uL (3.8-10.6)
[2020-12-24] MEDS: HYDROcodone/APAP 5-325MG 1 EACH TAB PO PRN ×3 (03:27→12:48)
[2020-12-24] MEDS: DOPamine DRIP 800 MG in WATER FOR INJECTION 1 250ML.BAG IV SCH (04:44)
[2020-12-24] MEDS: CLINDAMYCIN 150 MG CAP PO SCH ×2 (05:54→10:13)
[2020-12-24 08:00] LABS: African American GFR (CKD) >90 (>60 ml/min/1.73 sqM); Anion Gap 4 mmol/L; Blood Urea Nitrogen 10 mg/dL (9-20); Calcium 8.3 mg/dL (8.4-10.2); Carbon Dioxide 31 mmol/L (22-30); Chloride 102 mmol/L (98-107); Glucose 99 mg/dL (74-99); Non-African American GFR(CKD) >90 (>60 ml/min/1.73 sqM); Potassium 4.5 mmol/L (3.5-5.1); Sodium 137 mmol/L (137-145)
[2020-12-24 08:06] LABS: Anisocytosis Slight; Basophils % (A) 1 %; Eosinophils # (A) 0.2 k/uL (0-0.7); Eosinophils % (A) 4 %; HCT 28.1 % (39.0-53.0); HGB 7.7 gm/dL (13.0-17.5); Hypochromasia Marked; Lymphocytes # (A) 0.8 k/uL (1.0-4.8); Lymphocytes % (A) 12 %; MCH 19.8 pg (25.0-35.0); MCHC 27.4 g/dL (31.0-37.0); MCV 72.2 fL (80.0-100.0); Mean Platelet Volume 7.5; Microcytosis Moderate; Monocytes # (A) 0.4 k/uL (0-1.0); Monocytes % (A) 6 %; Neutrophils # (A) 4.8 k/uL (1.3-7.7); Neutrophils % (A) 76 %; Platelet Count 288 k/uL (150-450); Poikilocytosis Moderate; WBC 6.3 k/uL (3.8-10.6)
[2020-12-24] MEDS ORDERED: PANTOPRAZOLE 40 MG TABLET PO SCH (09:30)
[2020-12-24] MEDS: PANTOPRAZOLE 40 MG/10 ML VIAL IVP SCH (10:00)
[2020-12-24] MEDS: NICOTINE 14MG/24HR PATCH TRANSDERM SCH (10:05)
[2020-12-24 12:12] VITALS: BP 128/63; PULSE 86; RESP 20; TEMP 98.2
--- NOTE | 2020-12-24 12:53 | P.DS ---
Providers Date of admission: 12/23/20 06:45 Expected date of discharge: 12/24/20 Attending physician: sImael Russell MD Consults: 12/23/20 04:46 Consult Physician Routine Consulting Provider: Parish Schneider Consult Reason/Comments: stones Do you want consulting provider notified?: Yes 12/23/20 06:44 Consult Physician Routine Consulting Provider: Oleg Perez Consult Reason/Comments: multiple episodes of prolonged sympt sinus pauses Do you want consulting provider notified?: Already Contacted 12/23/20 17:09 Consult Physician Routine Consulting Provider: Skye Nguyễn Consult Reason/Comments: GI bleed? Do you want consulting provider notified?: Yes Primary care physician: Stated None Hospital Course: This is a 60-year-old male with very complex past medical history noted below who presented to the emergency room with right flank pain. Computed tomography scan in the ER showed right obstructive ureteral calculi measuring 5 mm. Patient was noted to have episodes of AV block and reported having an episode of syncope before coming to the hospital. He was seen and evaluated by EP. He underwent pacemaker implantation during this admission. He was cleared by c ardiology for discharge. He was noted to be anemic with a hemoglobin of 6.7. Patient was asymptomatic and denies any GI bleed. He was transfused 1 unit of blood. Hemoglobin stabilized around 7.7. Patient underwent an EGD in June 2020 showing multiple superficial Oswaldo'serosions with no active bleeding. He was seen and evaluated by GI during this admission. He was cleared for discharge and plan to follow-up in the office. In regard to his kidney stone, he was seen and evaluated by urology and plan for a passage trial and follow-up in the office. Patient will be discharged after he was cleared by all specialists. Patient Condition at Discharge: Stable Plan - Discharge Summary Discharge Rx Participant: No New Discharge Prescriptions: New Tamsulosin [Flomax] 0.4 mg PO DAILY #14 cap Pantoprazole Sodium [Protonix] 40 mg PO DAILY #30 tablet. Discontinued Acetaminophen Tab [Tylenol] 650 mg PO Q4H 6 Days #36 tab Discharge Medication List Pantoprazole Sodium [Protonix] 40 mg PO DAILY #30 tablet. 12/24/20 [Rx] Tamsulosin [Flomax] 0.4 mg PO DAILY #14 cap 12/24/20 [Rx] Follow up Appointment(s)/Referral(s): Samuel Chopra MD [STAFF PHYSICIAN] - 1 Week Parish Schneider MD [STAFF PHYSICIAN] - 1-2 days Timothy Santana MD [STAFF PHYSICIAN] - As Needed Patient Instructions/Handouts: Kidney Stones (ED), Pacemaker (DC) Activity/Diet/Wound Care/Special Instructions: Take [place] as needed for pain. Follow-up with urology by calling for an appointment tomorrow. Follow-up with primary care to repeat hemoglobin in the next few days. Return to the emergency room for any worsening symptoms. Discharge Disposition: HOME SELF-CARE
--- NOTE | 2020-12-24 12:59 | P.EPCON ---
Electrophysiology Consult - EP Consult Electrophysiology Consult: This is Dr. Chopra dictating a consult on this patient The patient was interviewed and examined IMPRESSION / ASSESSMENT: Paroxysmal AV block as a mechanism of his syncope Post syncopal spells, unheralded No clear triggering factors Known anemia, likely history of GI bleeding but no active bleeding at this time PLAN: 2-D echo and Doppler study to assess LV function Proceed with permanent pacing if LV function is normal Patient may need a TVP intraoperatively HPI Called by Dr. He, who received a call regarding patient was in the ER. Initially the patient who presented with a history of syncope In the emergency room he had yet another episode of syncope associated with a very long pause When I went to evaluate the patient he looked comfortable he was in sinus rhythm alert and oriented give full history His main complaint was that he had severe back pain flank pain at home However when he had his second episode of syncope in the emergency room his flank pain had improved significantly, prior to that Review of the EKGs and the rhythm strips showed paroxysmal AV block LF lites are normal potassium is normal he is not in any AV node blocking drugs There are no triggering factors He was not in significant severe pain prior to that He is otherwise been in good health he is been walking around no undue shortness of breath. He doesn't history of anemia and his hemoglobin is 6.7. He stated that he has always been anemic and he has been worked up for it No active GI bleeding at this time ROS: No fever chills or rigors, no cough, phlegm or expectoration, no nausea, vomiting or diarrhea, no hematuria, dysuria, no musculoskeletal complaints, no strokes or seizures, no skin lesions. EXAMINATION: 131/66 mmHg pulse rate in the 70s 97.6F Breath sounds equal bilaterally no rhonchi no crackles Heart sounds and S2 normal no murmurs or gallops or rub Abdomen is soft Extremities warm Alert and oriented in the ER REVIEW OF LABS, ECG & MEDICAL DATA Hemoglobin 7.8 white count is normal Potassium 4.3 sodium 138 BUN 13 creatinine 1.04 TSH normal 3.4 First troponin normal
--- NOTE | 2020-12-24 13:27 | P.PN ---
Subjective Progress Note Date: 12/24/20 The patient was seen yesterday with a right ureteral stone by . This is the patient's first stone. The patient wishes to try to pass this spontaneously. He is feeling well. From urologic standpoint he can be discharged home. I'll up with Dr. Schneider in the office next week. The patient concurs with this. Objective - Vital Signs Vital signs: Vital Signs Temp 98.2 F 12/24/20 12:12 Pulse 86 12/24/20 12:12 Resp 20 12/24/20 12:12 BP 128/63 12/24/20 12:12 Pulse Ox 94 L 12/24/20 12:12 Intake & Output 12/23/20 12/24/20 12/24/20 18:59 06:59 18:59 Intake Total 156 1150 480 Output Total 550 1400 Balance -394 -250 480 Weight 83.915 kg Intake: IV 156 Oral 840 480 Blood Product 0 310 Rc As-1 Unit 0 310 [id number] Output: Urine 550 1400 Other: Voiding Method Urinal # Voids 1 - Labs CBC & Chem 7: 12/24/20 06:52 12/24/20 06:52 Labs: Abnormal Lab Results - Last 24 Hours (Table) 12/23/20 12/23/20 12/23/20 Range/Units 02:32 06:55 23:46 RBC 3.49 L (4.30-5.90) m/uL Hgb 7.2 L (13.0-17.5) gm/dL Hct 24.7 L (39.0-53.0) % MCV 70.6 L (80.0-100.0) fL MCH 20.6 L (25.0-35.0) pg MCHC 29.2 L (31.0-37.0) g/dL RDW 18.1 H (11.5-15.5) % Lymphocytes # 0.8 L (1.0-4.8) k/uL Carbon Dioxide (22-30) mmol/L Calcium (8.4-10.2) mg/dL Iron 13 L (65-175) ug/dL % Saturation 3.32 L (15.00-50.00) Ferritin 3.8 L (22.0-322.0) ng/mL Crossmatch See Detail 12/24/20 12/24/20 Range/Units 06:52 06:52 RBC 3.90 L (4.30-5.90) m/uL Hgb 7.7 L (13.0-17.5) gm/dL Hct 28.1 L (39.0-53.0) % MCV 72.2 L (80.0-100.0) fL MCH 19.8 L (25.0-35.0) pg MCHC 27.4 L (31.0-37.0) g/dL RDW 18.0 H (11.5-15.5) % Lymphocytes # 0.8 L (1.0-4.8) k/uL Carbon Dioxide 31 H (22-30) mmol/L Calcium 8.3 L (8.4-10.2) mg/dL Iron (65-175) ug/dL % Saturation (15.00-50.00) Ferritin (22.0-322.0) ng/mL Crossmatch
== END 2020-12-24 15:26 | disposition home or self-care (01) | DRG 243 ==
LOC: EC 01:40 → 6NMEDSUR 04:46 → 3SCARD 06:18 → 2SICU 06:41 → OBSVTOIN 06:45 → 2SICU 07:56 → 3SCARD 12:58
PROVIDERS: ADMIT Internal Medicine; ATTEND Internal Medicine
PROC: 0JH606Z Insertion of Pacemaker, Dual Chamber into Chest Subcutaneous Tissue and Fascia, Open Approach (ICD-10-PCS; principal; 2020-12-23 09:55)
PROC: 02HK3JZ Insertion of Pacemaker Lead into Right Ventricle, Percutaneous Approach (ICD-10-PCS; principal; 2020-12-23 09:55)
PROC: 02H63JZ Insertion of Pacemaker Lead into Right Atrium, Percutaneous Approach (ICD-10-PCS; principal; 2020-12-23 09:55)
DX: I44.39 Other atrioventricular block (principal); N13.2 Hydronephrosis with renal and ureteral calculous obstruction; R00.1 Bradycardia, unspecified; J44.9 Chronic obstructive pulmonary disease, unspecified; G40.909 Epilepsy, unspecified, not intractable, without status epilepticus; D50.9 Iron deficiency anemia, unspecified; Z20.822 Contact with and (suspected) exposure to COVID-19; K22.70 Barrett's esophagus without dysplasia; M16.11 Unilateral primary osteoarthritis, right hip; M25.562 Pain in left knee; K57.90 Diverticulosis of intestine, part unspecified, without perforation or abscess without bleeding; K44.9 Diaphragmatic hernia without obstruction or gangrene; F17.200 Nicotine dependence, unspecified, uncomplicated; Z71.6 Tobacco abuse counseling; Z79.899 Other long term (current) drug therapy; Z87.19 Personal history of other diseases of the digestive system; Z90.49 Acquired absence of other specified parts of digestive tract; Z86.69 Personal history of other diseases of the nervous system and sense organs; Z89.011 Acquired absence of right thumb; Z90.79 Acquired absence of other genital organ(s); Z87.11 Personal history of peptic ulcer disease; Z87.438 Personal history of other diseases of male genital organs; Z98.890 Other specified postprocedural states; Z88.6 Allergy status to analgesic agent; Z88.5 Allergy status to narcotic agent; Z88.0 Allergy status to penicillin; Z82.49 Family history of ischemic heart disease and other diseases of the circulatory system
CPT/HCPCS: 33208; 36415; 71045; 74018; 74176; 80048; 80053; 81003; 82150; 82728; 83540; 83550; 83605; 83690; 83735; 84443; 84484; 85025; 86850; 86900; 86901; 86920; 87635; 93306; 96361; 96374; 96375; 99285

== ENCOUNTER 2023-04-29 17:53 | Emergency (ER) | payer OTHER ==
[2023-04-29 18:03] VITALS: TEMP 98.4
[2023-04-29] MEDS ORDERED: MORPHINE SULFATE 4 MG/ML SYRINGE IM STA (19:11)
--- NOTE | 2023-04-29 19:58 | XR ---
EXAMINATION TYPE: XR Hip RT and AP Pelvis DATE OF EXAM: 04/29/2023 7:34 PM CLINICAL INDICATION:Male, 63 years old with history of pain; [facility] COMPARISON: 12/24/2015 TECHNIQUE: The right hip was examined in the frontal and lateral projections and a AP pelvis. FINDINGS: No evidence for acute process, joint dislocation or significant soft tissue swelling. Osteo phyte formation of the superior acetabulum of the hip. Surgical clips project over the pelvis. IMPRESSION: 1. No evidence for acute process. 2. Mild hip osteoarthrosis.
--- NOTE | 2023-04-29 20:00 | XR ---
EXAMINATION TYPE: XR lumbosacral spine min 4V DATE OF EXAM: 04/29/2023 7:35 PM CLINICAL INDICATION:Male, 63 years old with history of pain; COMPARISON: 01/21/2019. TECHNIQUE: Frontal, lateral , bilateral oblique and coned in L5-S1 lateral views of the spine. FINDINGS: No evidence of any acute osseous pathology. No evidence of loss of vertebral body height i s seen. There is normal alignment of the lumbar vertebral bodies. Mild scattered disc space narrowing . Multilevel marginal osteophyte formation throughout the visualized spine. There is facet joint arth ropathy throughout the spine. Scattered at least mild neural foraminal stenosis worse at L5-S1. IMPRESSION: 1. No acute fracture. 2. Mild multilevel disc degeneration.
[2023-04-29] MEDS ORDERED: LIDOCAINE 5% PATCH TOPICAL STA (20:16)
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
[2023-04-29 20:42] VITALS: BP 186/106; PULSE 73; RESP 18
== END 2023-04-29 20:40 | disposition home or self-care (01) ==
LOC: EC 17:53
DX: S70.01XA Contusion of right hip, initial encounter (principal); J44.9 Chronic obstructive pulmonary disease, unspecified; I10 Essential (primary) hypertension; F17.200 Nicotine dependence, unspecified, uncomplicated; Z88.0 Allergy status to penicillin; Z88.6 Allergy status to analgesic agent; Z88.5 Allergy status to narcotic agent; X50.0XXA Overexertion from strenuous movement or load, initial encounter
CPT/HCPCS: 99283 ×2; 96372 ×2; 72110; 73502; J2270

== ENCOUNTER 2023-08-01 21:17 | Emergency (ER) | payer OTHER ==
[2023-08-01 21:27] VITALS: RESP 18; TEMP 98.3
--- NOTE | 2023-08-01 23:04 | ED ---
General Adult HPI - General Chief complaint: Skin/Abscess/Foreign Body Stated complaint: rash on left, pain in left shoulder Time Seen by Provider: 08/01/23 22:28 Source: patient Mode of arrival: ambulatory Limitations: no limitations - History of Present Illness Initial comments: 3-year-old male presenting with chief complaint of rash. Patient states that he has a painful rash to the left flank. States that a few days ago he started experiencing pain to the area and then the rash suddenly developed. He was wondering if it may have been due to recently working with insulation. He does admit to some itching as well. The rash is limited to the left side and wraps around to the chest. No new foods, medications, topical products. No diff iculty breathing, difficulty swallowing, chest pain. - Related Data Previous Rx's Medication Instructions Recorded HYDROcodone/APAP 5-325MG [[place] 1 tab PO Q6HR PRN 3 Days #12 tab 12/24/20 5-325] Pantoprazole Sodium [Protonix] 40 mg PO DAILY #30 tablet. 12/24/20 Tamsulosin [Flomax] 0.4 mg PO DAILY #14 cap 12/24/20 Lidocaine 5% Patch [Lidoderm 5% 1 patch TOPICAL DAILY #30 patch 04/29/23 Patch] Acyclovir [Zovirax] 800 mg PO 5XD 10 Days #50 tab 08/01/23 Allergies Allergy/AdvReac Type Severity Reaction Status Date / Time Penicillins Allergy Rash/Hives Verified 04/29/23 18:00 aspirin AdvReac PATIENT Verified 04/29/23 18:00 HAS AN ULCER codeine AdvReac Nausea & Verified 04/29/23 18:00 Vomiting ibuprofen [From Motrin] AdvReac PATIENT Verified 04/29/23 18:00 HAS AN ULCER Review of Systems ROS Statement: Those systems with pertinent positive or pertinent negative responses have been documented in the HPI. ROS Other: All systems not noted in ROS Statement are negative. Past Medical History Past Medical History: COPD, GI Bleed, Hypertension, Seizure Disorder Additional Past Medical History / Comment(s): migraines, last seizure 2001, History of Any Multi-Drug Resistant Organisms: None Reported Past Surgical History: Cholecystectomy, Orthopedic Surgery Additional Past Surgical History / Comment(s): amputation right thumb, skin graft right hand, left testicle removed. Past Anesthesia/Blood Transfusion Reactions: No Reported Reaction Additional Past Anesthesia/Blood Transfusion Reaction / Comment(s): pt has recieved blood transfusion - no reaction Past Psychological History: No Psychological Hx Reported Smoking Status: Current every day smoker Past Alcohol Use History: Rare Past Drug Use History: None Reported - Past Family History Mother History Unknown: Yes Family Medical History: Myocardial Infarction ([place]) Additional Family Medical History / Comment(s): Mother had a [place] about age 50 yrs. She in her 80s. Father History Unknown: Yes Family Medical History: Myocardial Infarction ([place]) Additional Family Medical History / Comment(s): Father had a [place] at about age 55 yrs. He in his early 80s. General Exam Limitations: no limitations General appearance: alert, in no apparent distress Head exam: Present: atraumatic, normocephalic Eye exam: Present: normal appearance Neck exam: Present: normal inspection Respiratory exam: Present: normal lung sounds bilaterally. Absent: respiratory distress, wheezes, rales, rhonchi, stridor Cardiovascular Exam: Present: regular rate, normal rhythm, normal heart sounds. Absent: systolic murmur, diastolic murmur, rubs, gallop, clicks Neurological exam: Present: alert, oriented X3 Psychiatric exam: Present: normal affect, normal mood Skin exam: Present: vesicles (Vesicular rash following nerve distribution located on the left flank which wraps around to the chest.) Course Vital Signs 08/01/23 08/01/23 21:21 23:10 Temperature 98.3 F Pulse Rate 98 84 Respiratory 18 18 Rate Blood Pressure 176/108 158/80 O2 Sat by Pulse 98 99 Oximetry Medical Decision Making - Medical Decision Making Was pt. sent in by a medical professional or institution (, PA, TRESTLE MAINTERNANCE LABORER, urgent care, hospital, or senior living...) When possible be specific @ -No Did you speak to anyone other than the patient for history (EMS, parent, family, police, friend...)? What history was obtained from this source @ -No Did you review nursing and triage notes (agree or disagree)? Why? @ -I reviewed and agree with nursing and triage notes Were old charts reviewed (outside hosp., previous admission, EMS record, old EKG, old radiological studies, urgent care reports/EKG's, senior living records)? Report findings @ -No old charts were reviewed Differential Diagnosis (chest pain, altered mental status, abdominal pain women, abdominal pain men, vaginal bleeding, weakness, fever, dyspnea, syncope, headache, dizziness, GI bleed, back pain, seizure, CVA, palpatations, mental health, musculoskeletal)? @ -Differential includes shingles, ALLERGIC reaction, cellulitis, it is not an all inclusive list EKG interpreted by me (3pts min.). @ -As above X-rays interpreted by me (1pt min.). @ -None done CT interpreted by me (1pt min.). @ -None done U/S interpreted by me (1pt. min.). @ -None done What testing was considered but not performed or refused? (CT, X-rays, U/S, labs)? Why? @ -None What meds were considered but not given or refused? Why? @ -None Did you discuss the management of the patient with other professionals (professionals i.e. , PA, TRESTLE MAINTERNANCE LABORER, lab, RT, psych nurse, oncology social work, stagecraft professor, teacher, credit officer, case management specialist)? Give summary @ -No Was smoking cessation discussed for >3mins.? @ -No Was critical care preformed (if so, how long)? @ -No Were there social determinants of health that impacted care today? How? (Ho melessness, low income, unemployed, alcoholism, drug addiction, transportation, low edu. Level, literacy, decrease access to med. care, half-way, rehab)? @ -No Was there de-escalation of care discussed even if they declined (Discuss DNR or withdrawal of care, Hospice)? DNR status @ -No What co-morbidities impacted this encounter? (DM, HTN, Smoking, COPD, CAD, Cancer, CVA, ARF, Chemo, Hep., AIDS, mental health diagnosis, sleep apnea, morbid obesity)? @ -None Was patient admitted / discharged? Hospital course, mention meds given and route, prescriptions, significant lab abnormalities, going to OR and other pertinent info. @ -63-year-old male presenting with chief complaint of painful rash located on the left flank. This was preceded by stabbing pain over the skin. No injury or trauma. No new foods, medications, topical products. No difficulty breathing or swallowing. On examination there is a vesicular rash which follows the dermatome on the left side. Appears consistent with shingles. No rash or pain to the face. No pain to the eyes or visual disturbances. No ear pain or hearing changes and no tinnitus. Patient is educated on today's findings and the treatment plan. He will be treated with acyclovir provided with a short course of Tylenol 3 for pain management. Follow-up with PCP. Report back to ER with any new or worsening symptoms. Discussed return parameters and answered all questions. Patient conveyed verbal understanding and agreed to the plan. I discussed this case in detail with my attending Dr. Luis Undiagnosed new problem with uncertain prognosis? @ -No Drug Therapy requiring intensive monitoring for toxicity (Heparin, Nitro, Insulin, Cardizem)? @ -No Were any procedures done? @ -No Diagnosis/symptom? @ -Shingles Acute, or Chronic, or Acute on Chronic? @ -Acute Uncomplicated (without systemic symptoms) or Complicated (systemic symptoms)? @ -Uncomplicated Side effects of treatment? @ -No Exacerbation, Progression, or Severe Exacerbation? @ -No Poses a threat to life or bodily function? How? (Chest pain, [place], [place], pneumonia, PE, COPD, DKA, ARF, appy, cholecystitis, CVA, Diverticulitis, Homicidal, Suicidal, threat to staff... and all critical care pts) @ -No Disposition Clinical Impression: Shingles Disposition: HOME SELF-CARE Condition: Good Instructions (If sedation given, give patient instructions): Shingles (ED) Additional Instructions: Follow-up with PCP. Report back to ER with any new or worsening symptoms. Prescriptions: Acyclovir [Zovirax] 800 mg PO 5XD 10 Days #50 tab Is patient prescribed a controlled substance at d/c from ED?: No Referrals: None,Stated [Primary Care Provider] - 1-2 days La Nena Grady MD [STAFF PHYSICIAN] - 1-2 days Time of Disposition: 23:02
[2023-08-01 23:20] VITALS: BP 158/80; PULSE 84
[2023-08-01] MEDS ORDERED: ACYCLOVIR 800 MG TAB PO STA (23:21)
[2023-08-01] MEDS: ACET/COD 300 MG/30 MG STARTER PACK 6 TAB BTL PO STA ×2 (23:34→23:37)
== END 2023-08-01 23:42 | disposition home or self-care (01) ==
LOC: EC 21:17
DX: B02.9 Zoster without complications (principal); I10 Essential (primary) hypertension; J44.9 Chronic obstructive pulmonary disease, unspecified; F17.200 Nicotine dependence, unspecified, uncomplicated; Z88.0 Allergy status to penicillin; Z88.5 Allergy status to narcotic agent; Z88.6 Allergy status to analgesic agent; Z90.49 Acquired absence of other specified parts of digestive tract
CPT/HCPCS: 99283

== ENCOUNTER 2023-08-14 11:12 | Emergency (ER) | payer OTHER ==
--- NOTE | 2023-08-14 11:22 | ED ---
General Adult HPI - General Source: RN notes reviewed <Victorina Pratt - Last Filed: 08/14/23 11:21> - General Source: patient, old records reviewed <Bentley Licona - Last Filed: 08/14/23 15:08> - General Stated complaint: chest pains Time Seen by Provider: 08/14/23 11:21 - History of Present Illness Initial comments: 63-year-old male presents to the emergency department with a chief complaint of left-sided chest pain at rest. He describes as sharp. It has been ongoing for the last week and a half. He reports recent diagnosis of shingles. Rash has resolved. (Victorina Pratt) This is a 63-year-old male who presents to the emergency department complaining of having shingles one week ago. Patient states she was unable to fill the antiviral medications. Patient states the pain is persistent and he can't do anything to get relief. Patient states he has no shortness of breath no difficulty breathing patient denies any radiation of pain except for the rash was. Patient states the rash is still visible but much improved. Patient denies any sweating episodes. Patient denies any fever chills or cough. (Bentley Licona) - Related Data Previous Rx's Medication Instructions Recorded HYDROcodone/APAP 5-325MG [[place] 1 tab PO Q6HR PRN 3 Days #12 tab 12/24/20 5-325] Pantoprazole Sodium [Protonix] 40 mg PO DAILY #30 tablet. 12/24/20 Tamsulosin [Flomax] 0.4 mg PO DAILY #14 cap 12/24/20 Lidocaine 5% Patch [Lidoderm 5% 1 patch TOPICAL DAILY #30 patch 04/29/23 Patch] Acyclovir [Zovirax] 800 mg PO 5XD 10 Days #50 tab 08/01/23 Lidocaine 4% Patch 4 patch TOPICAL DAILY #10 patch 08/14/23 Allergies Allergy/AdvReac Type Severity Reaction Status Date / Time Penicillins Allergy Rash/Hives Verified 08/14/23 11:22 aspirin AdvReac PATIENT Verified 08/14/23 11:22 HAS AN ULCER codeine AdvReac Nausea & Verified 08/14/23 11:22 Vomiting ibuprofen [From Motrin] AdvReac PATIENT Verified 08/14/23 11:22 HAS AN ULCER Review of Systems ROS Other: All systems not noted in ROS Statement are negative. <Victorina Pratt - Last Filed: 08/14/23 11:21> ROS Other: All systems not noted in ROS Statement are negative. <Bentley Licona - Last Filed: 08/14/23 15:08> ROS Statement: Those systems with pertinent positive or pertinent negative responses have been documented in the HPI. Past Medical History Past Medical History: COPD, GI Bleed, Hypertension, Seizure Disorder Additional Past Medical History / Comment(s): migraines, last seizure 2001, History of Any Multi-Drug Resistant Organisms: None Reported Past Surgical History: Cholecystectomy, Orthopedic Surgery Additional Past Surgical History / Comment(s): amputation right thumb, skin graft right hand, left testicle removed. Past Anesthesia/Blood Transfusion Reactions: No Reported Reaction Additional Past Anesthesia/Blood Transfusion Reaction / Comment(s): pt has recieved blood transfusion - no reaction Past Psychological History: No Psychological Hx Reported Smoking Status: Current every day smoker Past Alcohol Use History: Rare Past Drug Use History: None Reported - Past Family History Mother History Unknown: Yes Family Medical History: Myocardial Infarction (DC) Additional Family Medical History / Comment(s): Mother had a DC about age 50 yrs. She in her 80s. Father History Unknown: Yes Family Medical History: Myocardial Infarction (DC) Additional Family Medical History / Comment(s): Father had a DC at about age 55 yrs. He in his early 80s. <Victorina Pratt - Last Filed: 08/14/23 11:21> General Exam <Victorina Pratt - Last Filed: 08/14/23 11:21> <Bentley Licoan - Last Filed: 08/14/23 15:08> - General Exam Comments Initial Comments: Visual Physical Exam Vital signs reviewed General: Well-appearing, nontoxic, no acute distress. Head: Normocephalic, atraumatic Eyes: PERRLA, EOMI ENT: Airway patent Chest: Nonlabored breathing Skin: No visual rash, normal skin tone Neuro: Alert and oriented 3 Musculoskeletal: No gross abnormalities (Victorina Pratt) GENERAL: Patient is well-developed and well-nourished. Patient is nontoxic and well- hydrated and is in mild distress. ENT: Neck is soft and supple. No significant lymphadenopathy is noted. Oropharynx is clear. Moist mucous membranes. Neck has full range of motion without eliciting any pain. EYES: The sclera were anicteric and conjunctiva were pink and moist. Extraocular movements were intact and pupils were equal round and reactive to light. Eyelids were unremarkable. PULMONARY: Unlabored respirations. Good breath sounds bilaterally. No audible rales rhonchi or wheezing was noted. CARDIOVASCULAR: There is a regular rate and rhythm without any murmurs gallops or rubs. Left lateral chest wall has a healing rash consistent with shingles and is tender to palpate lightly ABDOMEN: Soft and nontender with normal bowel sounds. SKIN: Skin is clear with no lesions or rashes and otherwise unremarkable. NEUROLOGIC: Patient is alert and oriented x3. Cranial nerves II through XII are grossly intact. Motor and sensory are also intact. Normal speech, volume and content. Symmetrical smile. MUSCULOSKELETAL: Normal extremities with adequate strength and full range of motion. No lower extremity swelling or edema. No calf tenderness. LYMPHATICS: No significant lymphadenopathy is noted PSYCHIATRIC: Normal psychiatric evaluation. (Bentley Licona) Course Vital Signs 08/14/23 08/14/23 11:19 14:55 Temperature 98 F Pulse Rate 95 89 Respiratory 18 18 Rate Blood Pressure 137/96 154/101 O2 Sat by Pulse 98 95 Oximetry Medical Decision Making <Victorina Pratt - Last Filed: 08/14/23 11:21> - Lab Data Result diagrams: 08/14/23 13:51 <Bentley Licona - Last Filed: 08/14/23 15:08> - Medical Decision Making I performed the quick note portion of this exam, verbal signature Victorina Pratt PA-C (Victorina Pratt) EKG is interpreted by myself. EKG shows a paced rhythm at 77 bpm MN interval 293 QRS 98 QT interval 357 QTC is 380. Patient's EKG shows no ST segment elevation or depression. Was pt. sent in by a medical professional or institution ([facility], [facility], urgent care, hospital, or jail...) When possible be specific @ -No Did you speak to anyone other than the patient for history (EMS, parent, family, police, friend...)? What history was obtained from this source @ -No Did you review nursing and triage notes (agree or disagree)? Why? @ -I reviewed and agree with nursing and triage notes Were old charts reviewed (outside hosp., previous admission, EMS record, old EKG , old radiological studies, urgent care reports/EKG's, jail records)? Report findings @ -No old charts were reviewed Differential Diagnosis (chest pain, altered mental status, abdominal pain women, abdominal pain men, vaginal bleeding, weakness, fever, dyspnea, syncope, headache, dizziness, GI bleed, back pain, seizure, CVA, palpatations, mental health, musculoskeletal)? @ -not applicable EKG interpreted by me (3pts min.). @ -As above X-rays interpreted by me (1pt min.). @ -None done CT interpreted by me (1pt min.). @ -None done U/S interpreted by me (1pt. min.). @ -None done What testing was considered but not performed or refused? (CT, X-rays, U/S, lab s)? Why? @ -None What meds were considered but not given or refused? Why? @ -None Did you discuss the management of the patient with other professionals (professionals i.e. , PA, F[employer], lab, RT, psych nurse, social work supervisor, senior financial accountant, teacher, light armored vehicle officer, senior case manager)? Give summary @ -No Was smoking cessation discussed for >3mins.? @ -No Was critical care preformed (if so, how long)? @ -No Were there social determinants of health that impacted care today? How? (Homelessness, low income, unemployed, alcoholism, drug addiction, transportation, low edu. Level, literacy, decrease access to med. care, correction, rehab)? @ -No Was there de-escalation of care discussed even if they declined (Discuss DNR or withdrawal of care, Hospice)? DNR status @ -No What co-morbidities impacted this encounter? (DM, HTN, Smoking, COPD, CAD, Cancer, CVA, ARF, Chemo, Hep., AIDS, mental health diagnosis, sleep apnea, morbid obesity)? @ -None Was patient admitted / discharged? Hospital course, mention meds given and route, prescriptions, significant lab abnormalities, going to OR and other pertinent info. @ -His pain was on the chest wall he stated it hurt in particular when you touch the area and the pain was over the the healing rash of shingles. Undiagnosed new problem with uncertain prognosis? @ -No Drug Therapy requiring intensive monitoring for toxicity (Heparin, Nitro, Insulin, Cardizem)? @ -No Were any procedures done? @ -No Diagnosis/symptom? @ -Postherpetic neuralgia Acute, or Chronic, or Acute on Chronic? @ -Acute Uncomplicated (without systemic symptoms) or Complicated (systemic symptoms)? @ -Uncomplicated Side effects of treatment? @ -No Exacerbation, Progression, or Severe Exacerbation? @ -No Poses a threat to life or bodily function? How? (Chest pain, USA, DC, pneumonia, PE, COPD, DKA, ARF, appy, cholecystitis, CVA, Diverticulitis, Homicidal, Suicidal, threat to staff... and all critical care pts) @ -No (Bentley Licona) - Lab Data Lab Results 08/14/23 Range/Units 13:51 WBC 5.6 (3.8-10.6) k/uL RBC 5.04 (4.30-5.90) m/uL Hgb 12.4 L (13.0-17.5) gm/dL Hct 40.0 (39.0-53.0) % MCV 79.3 L (80.0-100.0) fL MCH 24.5 L (25.0-35.0) pg MCHC 30.9 L (31.0-37.0) g/dL RDW 15.7 H (11.5-15.5) % Plt Count 208 (150-450) k/uL MPV 7.8 Neutrophils % 69 % Lymphocytes % 17 % Monocytes % 10 % Eosinophils % 1 % Basophils % 0 % Neutrophils # 3.9 (1.3-7.7) k/uL Lymphocytes # 1.0 (1.0-4.8) k/uL Monocytes # 0.6 (0-1.0) k/uL Eosinophils # 0.1 (0-0.7) k/uL Basophils # 0.0 (0-0.2) k/uL Hypochromasia Moderate Disposition <Victorina Pratt - Last Filed: 08/14/23 11:21> Is patient prescribed a controlled substance at d/c from ED?: No Time of Disposition: 15:08 <Bentley Licona - Last Filed: 08/14/23 15:08> Clinical Impression: Postherpetic neuralgia Disposition: HOME SELF-CARE Condition: Good Instructions (If sedation given, give patient instructions): Shingles (ED) Additional Instructions: Patient should apply capsaicin cream twice a day. Patient should apply lidocaine patches once a day for 12 hours Prescriptions: Lidocaine 4% Patch 4 patch TOPICAL DAILY #10 patch Referrals: None,Stated [Primary Care Provider] - 1-2 days
[2023-08-14 11:25] VITALS: RESP 18; TEMP 98
--- NOTE | 2023-08-14 11:45 | XR ---
EXAMINATION TYPE: XR chest 2V DATE OF EXAM: 08/14/2023 COMPARISON: 12/23/2020 INDICATION: Chest pain cough TECHNIQUE: Frontal and lateral views of the chest are obtained. FINDINGS: The heart size is normal. The pulmonary vasculature is normal. The lungs are clear. Air is increased AP diameter compatible some senile emphysematous change. Pacem rebekah overlies the left chest. IMPRESSION: 1. No acute pulmonary process.
[2023-08-14 14:54] LABS: Basophils % (A) 0 %; Eosinophils # (A) 0.1 k/uL (0-0.7); Eosinophils % (A) 1 %; HGB 12.4 gm/dL (13.0-17.5); Hypochromasia Moderate; Lymphocytes % (A) 17 %; MCH 24.5 pg (25.0-35.0); MCHC 30.9 g/dL (31.0-37.0); MCV 79.3 fL (80.0-100.0); Mean Platelet Volume 7.8; Monocytes # (A) 0.6 k/uL (0-1.0); Monocytes % (A) 10 %; Neutrophils # (A) 3.9 k/uL (1.3-7.7); Neutrophils % (A) 69 %; Platelet Count 208 k/uL (150-450); RBC 5.04 m/uL (4.30-5.90); RDW 15.7 % (11.5-15.5); WBC 5.6 k/uL (3.8-10.6)
[2023-08-14] MEDS ORDERED: LIDOCAINE 4% PATCH TOPICAL ONE (14:58)
[2023-08-14] MEDS ORDERED: KETOROLAC 15 MG/ML 1 ML VIAL IM STA (14:58)
[2023-08-14] MEDS ORDERED: traMADol 50 MG STARTER PACK 3 TAB BTL PO STA (15:08)
[2023-08-14 15:12] VITALS: BP 154/101; PULSE 89
[2023-08-14 15:15] LABS: Partial Thromboplastin Time 31.6 sec (22.0-30.0); Prothrombin Time 11.3 sec (10.0-12.5)
[2023-08-14 15:16] LABS: ALT 13 U/L (4-49); AST 25 U/L (17-59); African American GFR (CKD) >90 (>60 ml/min/1.73 sqM); Albumin 4.2 g/dL (3.5-5.0); Alkaline Phosphatase 89 U/L (38-126); Anion Gap 11 mmol/L; Blood Urea Nitrogen 13 mg/dL (9-20); Calcium 9.4 mg/dL (8.4-10.2); Carbon Dioxide 26 mmol/L (22-30); Chloride 98 mmol/L (98-107); Glucose 95 mg/dL (74-99); Non-African American GFR(CKD) 84 (>60 ml/min/1.73 sqM); Potassium 4.4 mmol/L (3.5-5.1); Sodium 135 mmol/L (137-145); Total Bilirubin 0.4 mg/dL (0.2-1.3); Total Protein 7.7 g/dL (6.3-8.2)
== END 2023-08-14 16:00 | disposition home or self-care (01) ==
LOC: EC 11:12
DX: B02.29 Other postherpetic nervous system involvement (principal); I51.7 Cardiomegaly; J44.9 Chronic obstructive pulmonary disease, unspecified; I10 Essential (primary) hypertension; F17.200 Nicotine dependence, unspecified, uncomplicated; Z88.0 Allergy status to penicillin; Z88.6 Allergy status to analgesic agent; Z88.5 Allergy status to narcotic agent
CPT/HCPCS: 36415; 93005; 80053; 84484; 85025; 85610; 85730; 71046; 99285; 96372; J1885